=== PATIENT | male | born 1970 | race African-American/Black ===

== ENCOUNTER 2022-09-22 23:10 | Emergency (ER) | payer OTHER, SELFPAY ==
[2022-09-22 23:23] VITALS: BP 159/92; PULSE 83; RESP 22; TEMP 36.9; O2SAT 100; BMI 26.7
--- NOTE | 2022-09-22 23:42 | ED_ITS ---
HPI - Abdominal Pain General Chief Complaint: Abdominal Pain Stated Complaint: ABDOMINAL PAIN, N&V Time Seen by Provider: 09/22/22 23:24 Source: patient Mode of arrival: walk-in Limitations: no limitations History of Present Illness HPI narrative: patient presents complaining of nausea, vomiting and diarrhea. Crampy diarrhea. ongoing for 4th day. No fever but has chills. States diarrhea is watery and mucousy staes cramping can become quite uncomfortable with diarrhea. Related Data Home Medications Medication Instructions Recorded Confirmed dicyclomine 20 mg tablet 20 mg PO QID 09/22/22 09/22/22 metformin 500 mg 24 hr 500 mg PO BID 09/22/22 09/22/22 tablet,extended release (Glumetza) olmesa medox 5 mg PO DAILY 09/22/22 09/22/22 rosuvastatin 5 mg tablet (Crestor) 5 mg PO DAILY 09/22/22 09/22/22 Allergies Allergy/AdvReac Type Severity Reaction Status Date / Time No Known Drug Allergies Allergy Verified 09/22/22 23:28 Review of Systems ROS Status of ROS 10 or more systems reviewed and unremarkable except as noted in history and below [facility] Medical History (Updated 09/23/22 @ 04:51 by Harlan Myrick MD) Exam Constitutional Vital Signs, click to edit/add: Last Vital Signs Temp 98.4 F 09/22/22 23:23 Pulse 92 H 09/23/22 03:14 Resp 16 09/23/22 03:14 BP 162/94 H 09/23/22 03:14 Pulse Ox 100 09/23/22 03:14 O2 Del Method Room Air 09/23/22 03:14 Common normals: average body habitus, oriented x3 and healthy appearing HENMT Common normals: normocephalic and head/scalp atraumatic Eye Common normals: PERRL, EOMs intact bilaterally and conjunctivae normal Respiratory Common normals: normal respiratory effort, no retractions, no use of accessory muscles and clear to auscultation bilaterally Cardio Common normals: no JVD, regular rate, regular rhythm, S1 normal heart sound and S2 normal heart sound GI Common normals: Normal to inspection, nondistended, normoactive bowel sounds present, soft to palpation and non-tender Extremity Common normals: normal to inspection Neuro Common normals: oriented x3, CN's II-XII intact bilaterally, moves all extremities and no focal motor deficits Psych Appearance: grossly normal Course Vital Signs Vital signs: Vital Signs Temperature 98.4 F 09/22/22 23:23 Pulse Rate 83 09/22/22 23:23 Respiratory Rate 22 09/22/22 23:23 Blood Pressure 159/92 H 09/22/22 23:23 Pulse Oximetry 100 09/22/22 23:23 Temperature 98.4 F 09/22/22 23:23 Pulse Rate 92 H 09/23/22 03:14 Respiratory Rate 16 09/23/22 03:14 Blood Pressure 162/94 H 09/23/22 03:14 Pulse Oximetry 100 09/23/22 03:14 Oxygen Delivery Method Room Air 09/23/22 03:14 MDM - Abdominal Pain MDM Narrative Medical decision making narrative: patient presents with recurrent diarrhea and cramping. also occ vomiting. symptoms improved after Toradol and IV hydration. Stool without obvious source to explain his GI symptoms including neg. C. diff. Patient discharged home with izabela and issa and is to follow up with his doctor Lab Data Labs: Lab Results 09/22/22 09/23/22 Range/Units 23:37 00:45 WBC 9.6 (4.0-11.0) 10^3/uL RBC 4.33 L (4.70-6.10) 10^6/uL Hgb 13.1 L (14.0-18.0) g/dL Hct 37.6 L (42.0-54.0) % MCV 86.8 (80.0-94.0) fL MCH 30.3 (25.9-34.0) pg MCHC 34.8 (29.9-35.2) g/dL RDW 11.8 (11.0-15.0) % Plt Count 301 (150-450) 10^3/uL MPV 8.9 L (9.5-13.5) fL Neut % (Auto) 58.8 (43.0-75.0) % Lymph % (Auto) 27.6 (20.5-60.0) % Shackelford % (Auto) 11.0 (1.7-12.0) % Eos % (Auto) 1.7 (0.9-7.0) % Baso % (Auto) 0.7 (0.2-2.0) % Neut # (Auto) 5.6 (1.4-6.5) 10^3/uL Lymph # (Auto) 2.6 (1.2-3.8) 10^3/uL Shackelford # (Auto) 1.1 H (0.3-0.8) 10^3/uL Eos # (Auto) 0.2 (0.0-0.7) 10^3/uL Baso # (Auto) 0.1 (0.0-0.1) 10^3/uL Abs Immat Gran (auto) 0.02 (0.00-0.03) 10^3/uL Imm/Tot Granulo (auto) 0.2 (0.0-0.5) % Sodium 140 (136-145) mmol/L Potassium 3.3 L (3.5-5.1) mmol/L Chloride 103 (98-107) mmol/L Carbon Dioxide 28.9 (21.0-32.0) mmol/L Anion Gap 11.4 BUN 17.0 (7.0-18.0) mg/dL Creatinine 1.27 (0.70-1.30) mg/dL Est GFR ( Amer) >60 (>=60) Est GFR (Non-Af Amer) >60 (>=60) BUN/Creatinine Ratio 13.4 Glucose 139 H (74-106) mg/dL Lactate 1.3 (0.4-2.0) mmol/L Calcium 9.3 (8.5-10.1) mg/dL Total Bilirubin 0.3 (0.2-1.0) mg/dL AST 21 (15-37) U/L ALT 39 (16-63) U/L Alkaline Phosphatase 117 H (46-116) U/L Total Protein 8.1 (6.4-8.2) g/dL Albumin 4.2 (3.4-5.0) g/dL Globulin 3.9 g/dL Albumin/Globulin Ratio 1.1 Stl C. cayetanensis PCR Not detected (NOT DETECTE) Stool Rotavirus (PCR) Not detected (NOT DETECTE) Stool Adenovirus (PCR) Not detected (NOT DETECTE) Stool Astrovirus (PCR) Not detected (NOT DETECTE) Stool Campylobacter PCR Not detected (NOT DETECTE) Stool Cryptosporidium PCR Not detected (NOT DETECTE) St Sh/Enteroin Ecoli PCR Not detected (NOT DETECTE) Stl Enterotoxigenic E PCR Not detected (NOT DETECTE) Stl E. histolytica PCR Not detected (NOT DETECTE) Stool Giardia Lamblia PCR Not detected (NOT DETECTE) Stl P. shigelloides PCR Not detected (NOT DETECTE) Stool Salmonella PCR Not detected (NOT DETECTE) Stool Sapovirus (PCR) Not detected (NOT DETECTE) Stl Shiga-like Tx 1 PCR Not detected (NOT DETECTE) St Y.enterocolitica PCR Not detected (NOT DETECTE) Stl Vibrio cholerae PCR Not detected (NOT DETECTE) Stl Enteroaggr Ecoli PCR Not detected (NOT DETECTE) Stl Norovirus GI/GII PCR Not detected (NOT DETECTE) C. difficile Toxin A&B Not detected (NOT DETECTE) Vibrio Culture Not detected (NOT DETECTE) Discharge Plan Discharge Chief Complaint: Abdominal Pain Clinical Impression: Gastroenteritis Prescriptions / Home Meds: No Action metformin [Glumetza] 500 mg tablet,ER lesa.retention 24 hr 500 mg PO BID dicyclomine 20 mg tablet 20 mg PO QID rosuvastatin [Crestor] 5 mg tablet 5 mg PO DAILY olmesa medox 5 mg PO DAILY Instructions: Gastroenteritis (ED) Additional Instructions: follow up with your family doctor in the next few days Stand Alone Forms: Portal Instructions Referrals: Physician,Non-Staff, MD [Primary Care Provider] - 1 week
--- NOTE | 2022-09-22 23:45 | XR_ITS ---
The [address] [address] Patient Name: JESSICA PITTMAN MRN: [id number] date: 1970 Sex: M Assigned Patient Location: ER Current Patient Location: Accession/Order Number: [id number] Exam Date: 09/22/2022 23:59 Report Date: 09/23/2022 00:42 At the request of: MARITA ELLISON Procedure: XR abdomen min 2V PLAIN FILM OF THE ABDOMEN HISTORY: Abdominal pain with nausea vomiting and diarrhea since last Tuesday. Patient has a history of IBS. Patient has a history of diabetes.. COMPARISON: None. TECHNIQUE: 2 view of the abdomen/pelvis submitted for review. FINDINGS: Evaluation for free air is limited due to supine position. The bowel gas pattern is nonobstructive. There are no abnormal calcifications. However, evaluation of the renal shadows is limited due to overlying bowel gas. No portal venous air. Osseous structures appear within normal limits for age. XR/XR abdomen min 2V IMPRESSION: 1. Nonobstructive bowel gas pattern. 2. Mildretention of stool. Electronically authenticated by: GERARDO SALDAÑA Date: 09/23/2022 00:42
[2022-09-23 00:01] LABS: Basophils Absolute Auto 0.1 10^3/uL (0.0-0.1); Basophils Percent Auto 0.7 % (0.2-2.0); Eosinophils Absolute Auto 0.2 10^3/uL (0.0-0.7); Eosinophils Percent Auto 1.7 % (0.9-7.0); Hematocrit 37.6 % (42.0-54.0); Hemoglobin 13.1 g/dL (14.0-18.0); Immature Granulocytes Abs Auto 0.02 10^3/uL (0.00-0.03); Immature Granulocytes Pct Auto 0.2 % (0.0-0.5); Lymphocytes Absolute Auto 2.6 10^3/uL (1.2-3.8); Lymphocytes Percent Auto 27.6 % (20.5-60.0); Mean Corpuscular HGB Conc 34.8 g/dL (29.9-35.2); Mean Corpuscular Hemoglobin 30.3 pg (25.9-34.0); Mean Corpuscular Volume 86.8 fL (80.0-94.0); Mean Platelet Volume 8.9 fL (9.5-13.5); Monocytes Absolute Auto 1.1 10^3/uL (0.3-0.8); Neutrophils Absolute Auto 5.6 10^3/uL (1.4-6.5); Neutrophils Percent Auto 58.8 % (43.0-75.0); Platelet Count 301 10^3/uL (150-450); Red Blood Count 4.33 10^6/uL (4.70-6.10); Red Cell Distribution Width 11.8 % (11.0-15.0); White Blood Count 9.6 10^3/uL (4.0-11.0)
[2022-09-23 00:17] LABS: Alanine Aminotransferase 39 U/L (16-63); Albumin Globulin Ratio 1.1; Albumin Level 4.2 g/dL (3.4-5.0); Alkaline Phosphatase 117 U/L (46-116); Anion Gap 11.4; Aspartate Amino Transferase 21 U/L (15-37); BUN Creatinine Ratio 13.4; Bilirubin Total 0.3 mg/dL (0.2-1.0); Calcium 9.3 mg/dL (8.5-10.1); Carbon Dioxide 28.9 mmol/L (21.0-32.0); Chloride 103 mmol/L (98-107); Estimated GFR (African America >60 (>=60); Estimated GFR (Non-African Ame >60 (>=60); Globulin 3.9 g/dL; Glucose 139 mg/dL (74-106); Potassium 3.3 mmol/L (3.5-5.1); Sodium 140 mmol/L (136-145); Total Protein 8.1 g/dL (6.4-8.2)
[2022-09-23 00:19] LABS: Lactate/Lactic Acid 1.3 mmol/L (0.4-2.0)
[2022-09-23] MEDS: ORPHENADRINE 60 MG/ 2 ML VIAL IV (00:40)
[2022-09-23] MEDS: 0.9 % SODIUM CHLORIDE 1,000 ML 999 ML IV ×2 (00:40→01:42)
[2022-09-23] MEDS: ONDANSETRON PF 4 MG/2 ML VIAL IV (00:40)
[2022-09-23] MEDS: KETOROLAC TROMETHAMINE 30 MG/ML VIAL IVP (00:40)
[2022-09-23 03:14] VITALS: BP 162/94; PULSE 92; RESP 16; O2SAT 100
[2022-09-23 03:14] LABS: Adenovirus F 40/41 NOT DETECTED (NOT DETECTE); Astrovirus NOT DETECTED (NOT DETECTE); Campylobacter NOT DETECTED (NOT DETECTE); Cryptosporidium NOT DETECTED (NOT DETECTE); Cyclospora cayetanensis NOT DETECTED (NOT DETECTE); Entamoeba histolytica NOT DETECTED (NOT DETECTE); Enteroaggregative E.coli NOT DETECTED (NOT DETECTE); Enterotoxigenic E. coli NOT DETECTED (NOT DETECTE); Giardia lamblia NOT DETECTED (NOT DETECTE); Norovirus GI/GII NOT DETECTED (NOT DETECTE); Plesiomonas shigelloides NOT DETECTED (NOT DETECTE); Rotavirus A NOT DETECTED (NOT DETECTE); Salmonella NOT DETECTED (NOT DETECTE); Sapovirus NOT DETECTED (NOT DETECTE); Shiga-like toxin-producing E.C NOT DETECTED (NOT DETECTE); Shigella/Enteroinvasive E.coli NOT DETECTED (NOT DETECTE); Vibrio NOT DETECTED (NOT DETECTE); Vibrio cholerae NOT DETECTED (NOT DETECTE); Yersinia enterocolitica NOT DETECTED (NOT DETECTE)
== END 2022-09-23 05:03 | disposition home or self-care (01) ==
PROVIDERS: Emergency Provider Internal Medicine
DX: K52.9 Noninfective gastroenteritis and colitis, unspecified (principal); Z79.84 Long term (current) use of oral hypoglycemic drugs
CPT/HCPCS: 36415; 74019; 80053; 81003; 83605; 85025; 87045; 87046; 87427; 87493; 87507; 96361; 96374; 96375; 99285

== ENCOUNTER 2023-02-23 23:06 | Observation (INO) | payer OTHER, SELFPAY ==
[2023-02-23 23:13] VITALS: BP 123/75; PULSE 77; RESP 14; TEMP 36.6; O2SAT 100; BMI 27.3
--- NOTE | 2023-02-23 23:28 | XR_ITS ---
The [address] [address] Patient Name: JESSICA PITTMAN MRN: [id number] date: 1970 Sex: M Assigned Patient Location: ER Current Patient Location: ER Accession/Order Number: [id number] Exam Date: 02/23/2023 23:40 Report Date: 02/23/2023 23:56 At the request of: MARITA ELLISON Procedure: XR foot RT min 3V EXAM: XR foot RT min 3V HISTORY: The patient is a 52-year-old male with osteomyelitis COMPARISON: None. FINDINGS: The right foot is radiographically negative with no evidence of fracture, dislocation, joint space narrowing, erosions, osteophytes, or other osseous or articular abnormalities. There are no areas of bone destruction, periosteal reaction, or soft tissue gas to suggest osteomyelitis. XR/XR foot RT min 3V IMPRESSION: No osseous or articular abnormalities seen within the right foot. Electronically authenticated by: MARY JOSEPH Date: 02/23/2023 23:56
--- NOTE | 2023-02-23 23:30 | ED_ITS ---
HPI - Skin/Abscess/Foreign Bdy General Chief complaint: Skin/Abscess/Foreign Body Stated complaint: RT FOOT PAIN Time Seen by Provider: 02/23/23 23:22 Source: patient Mode of arrival: Wheelchair Limitations: no limitations History of Present Illness HPI narrative: diabetic. Presents with right foot pain. Admits to shaving his foot about a month ago. Developed pain at 1st right MTP plantar surface with increasing pain and swelling. No fever or chills Related Data Home Medications Medication Instructions Recorded Confirmed dicyclomine 20 mg tablet 20 mg PO QID 09/22/22 02/23/23 metformin 500 mg 24 hr 500 mg PO BID 09/22/22 02/23/23 tablet,extended release (Glumetza) olmesa medox 5 mg PO DAILY 09/22/22 02/23/23 rosuvastatin 5 mg tablet (Crestor) 5 mg PO DAILY 09/22/22 02/23/23 Allergies Allergy/AdvReac Type Severity Reaction Status Date / Time No Known Drug Allergies Allergy Verified 09/22/22 23:28 [facility] Medical History (Updated 02/24/23 @ 03:41 by Harlan Myrick MD) Diabetic acidosis, type II ?E11.10 - Type 2 diabetes mellitus with ketoacidosis without coma (ICD-10) Social History Smoking status: Current every day smoker Exam Constitutional Vital Signs, click to edit/add: Last Vital Signs Temp 98 F 02/23/23 23:13 Pulse 77 02/23/23 23:13 Resp 14 02/23/23 23:13 BP 123/75 02/23/23 23:13 Pulse Ox 100 02/23/23 23:13 O2 Del Method Room Air 02/23/23 23:13 Course Vital Signs Vital signs: Vital Signs Temperature 98 F 02/23/23 23:13 Pulse Rate 77 02/23/23 23:13 Respiratory Rate 14 02/23/23 23:13 Blood Pressure 123/75 02/23/23 23:13 Pulse Oximetry 100 02/23/23 23:13 Oxygen Delivery Method Room Air 02/23/23 23:13 Temperature 98 F 02/23/23 23:13 Pulse Rate 77 02/23/23 23:13 Respiratory Rate 14 02/23/23 23:13 Blood Pressure 123/75 02/23/23 23:13 Pulse Oximetry 100 02/23/23 23:13 Oxygen Delivery Method Room Air 02/23/23 23:13 MDM - Skin/Abscess/Foreign Bdy MDM Narrative Medical decision making narrative: patient is diabetic. Presents with infection of his right foot. foot is swollen and tender and warmth. xray neg for osteo. CBC WNL. Patient treated with IV vanco and zosyn. Discussed with hospitalist who accepted the patient but also requested CT of the foot. ` Lab Data Labs: Lab Results 02/23/23 Range/Units 23:40 WBC 10.8 (4.0-11.0) 10^3/uL RBC 3.51 L (4.70-6.10) 10^6/uL Hgb 10.4 L (14.0-18.0) g/dL Hct 32.1 L (42.0-54.0) % MCV 91.5 (80.0-94.0) fL MCH 29.6 (25.9-34.0) pg MCHC 32.4 (29.9-35.2) g/dL RDW 12.3 (11.0-15.0) % Plt Count 242 (150-450) 10^3/uL MPV 9.3 L (9.5-13.5) fL Neut % (Auto) 66.2 (43.0-75.0) % Lymph % (Auto) 17.8 L (20.5-60.0) % Glynn % (Auto) 14.1 H (1.7-12.0) % Eos % (Auto) 0.9 (0.9-7.0) % Baso % (Auto) 0.6 (0.2-2.0) % Neut # (Auto) 7.1 H (1.4-6.5) 10^3/uL Lymph # (Auto) 1.9 (1.2-3.8) 10^3/uL Glynn # (Auto) 1.5 H (0.3-0.8) 10^3/uL Eos # (Auto) 0.1 (0.0-0.7) 10^3/uL Baso # (Auto) 0.1 (0.0-0.1) 10^3/uL Abs Immat Gran (auto) 0.04 H (0.00-0.03) 10^3/uL Imm/Tot Granulo (auto) 0.4 (0.0-0.5) % Sodium 138 (136-145) mmol/L Potassium 3.6 (3.5-5.1) mmol/L Chloride 102 (98-107) mmol/L Carbon Dioxide 29.2 (21.0-32.0) mmol/L Anion Gap 10.4 BUN 17.0 (7.0-18.0) mg/dL Creatinine 1.11 (0.70-1.30) mg/dL Est GFR ( Amer) >60 (>=60) Est GFR (Non-Af Amer) >60 (>=60) BUN/Creatinine Ratio 15.3 Glucose 124 H (74-106) mg/dL Lactate 0.5 (0.4-2.0) mmol/L Calcium 9.1 (8.5-10.1) mg/dL C-Reactive Protein 6.30 H (<=0.50) mg/dL Imaging Data Chest x-ray: Radiologist's impression: [place] [address] CT Scan Report Signed Patient: JESSICA PITTMAN MR#: [id number] : 1970 Acct:[id number] Age/Sex: 52 / M ADM Date: 02/23/23 Loc: ER Attending Dr: Ordering Physician: Harlan Myrick Date of Service: 02/24/23 Procedure(s): CT foot RT wo con Accession Number(s): [id number] cc: Physician,Non-Staff M.D.~ The [place] [id number] Patient Name: JESSICA PITTMAN MRN: [id number] date: 1970 Sex: M Assigned Patient Location: ER Current Patient Location: ER Accession/Order Number: [id number] Exam Date: 02/24/2023 01:48 Report Date: 02/24/2023 03:17 At the request of: HARLAN MYRICK Procedure: CT foot RT wo con EXAM: CT foot RT wo con HISTORY: osteomyelitis COMPARISON: Correlation is made with right foot radiographs dated 02/23/2023. TECHNIQUE: Noncontrast axial CT images through the right foot were obtained with coronal and sagittal reformats. Dose reduction techniques were achieved by using automated exposure control and/or adjustment of mA and/or kV according to patient size and/or use of iterative reconstruction technique. FINDINGS: No acute fracture or dislocation is seen. There are scattered degenerative changes. Well-corticated ossific densities at the tips of the medial and lateral malleoli are likely related to remote trauma. There are tiny Achilles and plantar calcaneal enthesophytes. There is no periosteal reaction, osseous destructive changes, or soft tissue air to suggest acute osteomyelitis. There is sclerosis of the medial tibial sesamoid. There is no significant right ankle joint effusion. There is fatty atrophy of the the lateral plantar foot musculature. The Achilles, peroneal, flexor, and extensor tendons about the right ankle and foot are grossly intact by CT. There is scattered subcutaneous edema about the right foot. There is a 3.6 x 0.9 cm fluid collection within either the skin or subcutaneous soft tissues at the medial plantar aspect of the distal first metatarsal. CT/CT foot RT wo con IMPRESSION: 1. There is a 3.6 x 0.9 cm fluid collection within either the skin or the subcutaneous tissues of the medial plantar aspect of the distal right first metatarsal. This could represent an abscess or a skin blister. Please correlate with the patient's physical examination. There are surrounding inflammatory changes which likely represent cellulitis. 2. Sclerosis of the right medial tibial sesamoid bone could be reactive or represent osteomyelitis. Consider further evaluation with MRI as clinically indicated. Discharge Plan Discharge Chief Complaint: Skin/Abscess/Foreign Body Clinical Impression: Cellulitis of foot, right Patient Disposition: Admitted As Inpatient
[2023-02-23 23:55] LABS: Basophils Absolute Auto 0.1 10^3/uL (0.0-0.1); Basophils Percent Auto 0.6 % (0.2-2.0); Eosinophils Absolute Auto 0.1 10^3/uL (0.0-0.7); Eosinophils Percent Auto 0.9 % (0.9-7.0); Hematocrit 32.1 % (42.0-54.0); Hemoglobin 10.4 g/dL (14.0-18.0); Immature Granulocytes Abs Auto 0.04 10^3/uL (0.00-0.03); Immature Granulocytes Pct Auto 0.4 % (0.0-0.5); Lymphocytes Absolute Auto 1.9 10^3/uL (1.2-3.8); Lymphocytes Percent Auto 17.8 % (20.5-60.0); Mean Corpuscular HGB Conc 32.4 g/dL (29.9-35.2); Mean Corpuscular Hemoglobin 29.6 pg (25.9-34.0); Mean Corpuscular Volume 91.5 fL (80.0-94.0); Mean Platelet Volume 9.3 fL (9.5-13.5); Monocytes Absolute Auto 1.5 10^3/uL (0.3-0.8); Monocytes Percent Auto 14.1 % (1.7-12.0); Neutrophils Absolute Auto 7.1 10^3/uL (1.4-6.5); Neutrophils Percent Auto 66.2 % (43.0-75.0); Platelet Count 242 10^3/uL (150-450); Red Blood Count 3.51 10^6/uL (4.70-6.10); Red Cell Distribution Width 12.3 % (11.0-15.0); White Blood Count 10.8 10^3/uL (4.0-11.0)
[2023-02-23] MEDS: PIPERACILLIN SODIUM/TAZOBACTAM 3.375 GM in 0.9 % SODIUM CHLORIDE 50 ML IV (23:58)
[2023-02-24] VITALS (12 sets, daily range): BP systolic 110–151; BP diastolic 65–97; PULSE 69–78; RESP 14–18; TEMP 36.3–37.2; O2SAT 95–100; BMI 27.4
[2023-02-24 00:12] LABS: Anion Gap 10.4; BUN Creatinine Ratio 15.3; Calcium 9.1 mg/dL (8.5-10.1); Carbon Dioxide 29.2 mmol/L (21.0-32.0); Chloride 102 mmol/L (98-107); Estimated GFR (African America >60 (>=60); Estimated GFR (Non-African Ame >60 (>=60); Glucose 124 mg/dL (74-106); Potassium 3.6 mmol/L (3.5-5.1); Sodium 138 mmol/L (136-145)
[2023-02-24 00:21] LABS: Lactate/Lactic Acid 0.5 mmol/L (0.4-2.0)
[2023-02-24] MEDS: VANCOMYCIN HCL 1,500 MG in 0.9 % SODIUM CHLORIDE 500 ML 250 MG IV ×2 (00:30→14:32)
[2023-02-24] MEDS: MORPHINE SULFATE 4 MG/ML VIAL IV (01:13)
[2023-02-24] MEDS: ONDANSETRON PF 4 MG/2 ML VIAL IV (01:13)
--- NOTE | 2023-02-24 01:22 | CT_ITS ---
The [address] [address] Patient Name: JESSICA PITTMAN MRN: [facility]:[id number] date: 1970 Sex: M Assigned Patient Location: ER Current Patient Location: Accession/Order Number: [id number] Exam Date: 02/24/2023 01:48 Report Date: 02/24/2023 03:17 At the request of: MARITA ELLISON Procedure: CT foot RT wo con EXAM: CT foot RT wo con HISTORY: osteomyelitis COMPARISON: Correlation is made with right foot radiographs dated 02/23/2023. TECHNIQUE: Noncontrast axial CT images through the right foot were obtained with coronal and sagittal reformats. Dose reduction techniques were achieved by using automated exposure control and/or adjustment of mA and/or kV according to patient size and/or use of iterative reconstruction technique. FINDINGS: No acute fracture or dislocation is seen. There are scattered degenerative changes. Well-corticated ossific densities at the tips of the medial and lateral malleoli are likely related to remote trauma. There are tiny Achilles and plantar calcaneal enthesophytes. There is no periosteal reaction, osseous destructive changes, or soft tissue air to suggest acute osteomyelitis. There is sclerosis of the medial tibial sesamoid. There is no significant right ankle joint effusion. There is fatty atrophy of the the lateral plantar foot musculature. The Achilles, peroneal, flexor, and extensor tendons about the right ankle and foot are grossly intact by CT. There is scattered subcutaneous edema about the right foot. There is a 3.6 x 0.9 cm fluid collection within either the skin or subcutaneous soft tissues at the medial plantar aspect of the distal first metatarsal. CT/CT foot RT wo con IMPRESSION: 1. There is a 3.6 x 0.9 cm fluid collection within either the skin or the subcutaneous tissues of the medial plantar aspect of the distal right first metatarsal. This could represent an abscess or a skin blister. Please correlate with the patient's physical examination. There are surrounding inflammatory changes which likely represent cellulitis. 2. Sclerosis of the right medial tibial sesamoid bone could be reactive or represent osteomyelitis. Consider further evaluation with MRI as clinically indicated. Electronically authenticated by: Sanjeev OLIVO Date: 02/24/2023 03:17
--- NOTE | 2023-02-24 05:41 | MR_ITS ---
The [address] [address] Patient Name: JESSICA PITTMAN MRN: [id number] date: 1970 Sex: M Assigned Patient Location: MS Current Patient Location: MS Accession/Order Number: [id number] Exam Date: 02/24/2023 08:47 Report Date: 02/24/2023 11:57 At the request of: GAEL TAVAREZ Procedure: MR foot RT wo con EXAM: MR foot RT wo con REASON FOR EXAM: look for osteomyltis. TECHNIQUE: Multiplanar, multisequence imaging of the right foot was performed without contrast COMPARISON: CT scan same date, radiograph 02/23/2023. FINDINGS: Along the plantar and medial aspect of the first MTP joint, there is superficial fluid collection and shallow soft tissue ulceration. This does not appear to extend to the level of the joint. The underlying bone marrow signal is without fracture or osteonecrosis. Specifically, no loss of normal T1 signal or increased T2 signal identified to suggest osteomyelitis. The midfoot is congruent. The Lisfranc ligament is intact. There is fusiform thickening and intermediate signal of the Achilles tendon consistent with tendinosis. No tear. The plantar fascia is thickened without tear. The visualized medial and lateral flexor tendons are unremarkable. The anterior talofibular ligament is thin and attenuated likely reflecting remote ATFL sprain. There is atrophy and edema the plantar musculature consistent with denervation. MR/MR foot RT wo con IMPRESSION: 1. Shallow soft tissue ulceration and cutaneous fluid collection along the plantar medial aspect of the first MTP joint. No evidence of osteomyelitis. 2. Incidental findings as above. Electronically authenticated by: YONAS GAVIRIA Date: 02/24/2023 11:57
--- NOTE | 2023-02-24 05:49 | P.PN_ITS ---
Progress Note: Subjective Subjective Interval history: The patient is a 52-year-old male with a history of diabetes, who started developing a blister of his right foot on the plantar surface. Yesterday, he started having some pain but still went to work. He then started having worsening 9 out of 10 pain. He denies any new medications or any recent antibiotics. He presented to the ED where initial x-ray was negative. However CRP was elevated. CT of the foot did show a 3.6 x 0.9 cm fluid collection of th e medial plantar aspect of the distal right first metatarsal area. Osteomyelitis also has not been ruled out. The patient was given Zosyn and vancomycin and is being admitted for further evaluation. Exam Narrative Exam Narrative: General : Alert and oriented x3 HEENT : Extraocular movements intact, pupils equal round and reactive to light and accommodation Neck: Supple, no JVD Chest: Clear to auscultation bilaterally, no wheezes Heart: Regular rate and rhythm, S1 and S2 heard Abdomen: Soft nontender nondistended. Extremities: Fluctuant area over the right medial plantar area, another 1 over the left foot. Neurologically: Moving all 4 extremities Skin: No rashes Constitutional Vital Signs, click to edit/add: Last Vital Signs Temp 98.2 F 02/24/23 04:35 Pulse 78 02/24/23 04:35 Resp 16 02/24/23 04:35 BP 138/78 02/24/23 04:35 Pulse Ox 98 02/24/23 04:35 O2 Del Method Room Air 02/24/23 05:05 Progress Note: Objective Labs Labs: Short CBC 02/23/23 Range/Units 23:40 WBC 10.8 (4.0-11.0) 10^3/uL Hgb 10.4 L (14.0-18.0) g/dL Hct 32.1 L (42.0-54.0) % Plt Count 242 (150-450) 10^3/uL BMP 02/23/23 23:40 Sodium 138 Potassium 3.6 Chloride 102 Carbon Dioxide 29.2 BUN 17.0 Creatinine 1.11 Glucose 124 H Calcium 9.1 Progress Note: A&P Assessment and Plan (1) Cellulitis of foot, right: Assessment and Plan: The patient is a 52 male with above medical problems, presenting with right foot abscess. Right foot abscess -Provide supportive care -Empiric antibiotics with Zosyn and vancomycin -Check MRI to look for osteomyelitis -Podiatry consult -Keep n.p.o. Diabetes -Hold metformin while npo DVT Prophylaxis -SCDs Medication review -Medication reconciliation form completed Goals of care -Full code Communications -Discussed with the emergency room physician -Discussed with the bedside nurse -Patient updated of plan of care, all questions answered to their satisfaction Disposition -Home when medically stable Telemedicine clause -As the provider of this telehealth evaluation, requested by the patient's evaluating physician, I attest that I introduced myself to the patient, provided my credentials and determined that telemedicine via a real-time, two-way interactive audio and video platform is an appropriate and effective means of providing this service. -I reviewed the patient's chart and had a discussion with the member of the patient's treatment team. -The patient and I mutually agreed with continuation of this evaluation via [employer]. The patient consented for the telemedicine evaluation. -This virtual encounter was taken place from [place], [place]. The encounter was approximately 35 minutes. The nurse was present during the entire time of the encounter and was able to remove the stethoscope and appropriate directions. The patient was evaluated at [facility] Telemedicine Attestation Telemedicine Attestation I conducted this encounter from [] via secure live, [id number] video conference with the patient, located at [facility] with []. Prior to the interview, the risks and benefits of telemedicine were discussed with the patient and verbal consent was obtained.
[2023-02-24] MEDS: SODIUM CHLORIDE 0.45 % 1,000 ML 75 ML IV (06:57)
[2023-02-24] MEDS: PIPERACILLIN SODIUM/TAZOBACTAM 3.375 GM in 0.9 % SODIUM CHLORIDE 50 ML IV ×3 (06:57→23:18)
[2023-02-24 08:41] LABS: Estimated Average Glucose 151 mg/dL; Glycohemoglobin A1C 6.9 % (4.5-6.2)
[2023-02-24] MEDS: LACTATED RINGER'S SOLUTION 1,000 ML 125 ML IV (08:49)
--- NOTE | 2023-02-24 09:37 | P.HP_ITS ---
<Statement entered by Juliette Sanchez, DO - 02/24/23 13:54> This documentation has been reviewed and approved. I have also seen and examined patient and agree with the above findings and plan of care. OR today, awaiting podiatry recs H&P: HPI History of Present Illness Chief complaint: RT FOOT INJURY Narrative: 02/24/23 0810 This is a 52-year-old male patient with a past medical history as outlined below primarily significant for type 2 diabetes newly diagnosed within the last year a nd a half; who presented to the ED complaining of right foot pain and swelling. He reports shaving of callus off the ball of his right foot approximately 2 weeks ago and cutting his foot in the process. Within the last week he noted some bruising and tenderness to the area. 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 In the last 24 hours he noted onset of exquisite tenderness and swelling with a large blistered area. He denies fevers or chills. Workup in the ED revealed no leukocytosis, but an elevated CRP (6.3). An x-ray of the right foot showed no osseous abnormality. A CT of the right foot did reveal 3.6 cm fluid collection, suspected abscess and surrounding cellulitis. There is a question of osteomyelitis of the right medial tibial sesamoid bone on CT imaging. The patient was admitted early this morning to the hospitalist service in observation. At the time of my exam the patient is resting quietly in bed. He reports exquisite tenderness to the plantar surface of his right foot near the 1st MTP joint. No visible drainage is noted but purulent fluid collection is suspected. He was attended by the podiatry service during my exam and they plan to take the pt for surgical I&D in the OR once an MRI has been obtained to more definitively assess for osteomyelitis. He reports taking his Metformin as prescribed by his PCP. DM2 is a relatively new diagnosis for him, but he was experiencing fairly advanced peripheral neuropathy of the feet and ankles by the time he was diagnosed so has probably been undiagnosed for some time. Advised close follow up with his PCP for DM2 management after discharge. Review of Systems ROS Status of ROS 10 or more systems reviewed and unremark able except as noted in history and below [facility] Medical History (Updated 02/24/23 @ 10:32 by Aditi Sanchez NP) Gastroenteritis ?K52.9 - Noninfective gastroenteritis and colitis, unspecified (ICD-10) Hyperlipidemia ?E78.5 - Hyperlipidemia, unspecified (ICD-10) Diabetes ?E11.9 - Type 2 diabetes mellitus without complications (ICD-10) Diabetic acidosis, type II ?E11.10 - Type 2 diabetes mellitus with ketoacidosis without coma (ICD-10) Family History (Updated 02/24/23 @ 05:16 by Donna Vick) Brother Family history of diabetes mellitus Aunt Family history of diabetes mellitus Social History (Updated 02/24/23 @ 05:18 by Donna Vick) Within the past year, how often did you have a drink containing alcohol: never Within the past year, how often did you have six or more drinks on one occasion: never Score interpretation: A score less than 4 is consistent with normal alcohol consumption. 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 Known occupational exposures/hazards: No Highest level of school completed/degree received: high school graduate Are you now , , , , never or living with a partner: living with partner In a typical week, how many times do you talk on the telephone with family, friends, or neighbors: 3 or more times per week How often do you get together with friends or relatives: 3 or more times per week How often do you attend rastafarian or jewish services: never Do you belong to any clubs or organizations such as rastafarian groups unions, fraternal or athletic groups, or school groups: no Total score: 2 Score interpretation: A score of greater than or equal to 2 indicates the lowest level of social isolation. Little interest or pleasure in doing things: not at all Feeling down, depressed, or hopeless: not at all Feel stressed/tense/nervous/anxious/difficulty sleeping: not at all Due to disability, difficulty making decisions: No Do you think of yourself as: straight/heterosexual Gender Identity: male Meds Home Medications and Allergies Home Medications Medication Instructions Recorded Confirmed Type metformin 1,000 mg tablet 1,000 mg PO BID 02/24/23 02/24/23 History Allergies Allergy/AdvReac Type Severity Reaction Status Date / Time No Known Drug Allergies Allergy Verified 09/22/22 23:28 Exam Constitutional Vital Signs, click to edit/add: Last Vital Signs Temp 98.2 F 02/24/23 04:35 Pulse 78 02/24/23 04:35 Resp 16 02/24/23 04:35 BP 138/78 02/24/23 04:35 Pulse Ox 98 02/24/23 04:35 O2 Del Method Room Air 02/24/23 05:05 Common normals: no apparent distress, oriented x3, alert and well nourished General appearance: cooperative Orientation/consciousness: Yes awake HENMT Common normals: normocephalic, head/scalp atraumatic, hearing grossly normal bilaterally, external nose normal and moist oral mucous membranes Head and scalp: normocephalic and atraumatic Eye Common normals: PERRL, EOMs intact bilaterally, conjunctivae normal and no scleral icterus Alignment: alignment normal Eyelid: eyelids normal Neck & C-Spine Common normals: full ROM, supple and no JVD Chest Common normals: inspection of chest normal Chest: symmetrical chest wall rise Respiratory Common normals: normal respiratory effort, no retractions, no use of accessory muscles and clear to auscultation bilaterally Effort & inspection: able to speak in complete sentences Cardio Common normals: no JVD, regular rate, regular rhythm, S1 normal heart sound, S2 normal heart sound, no gallops, no clicks, no murmurs, no rub and peripheral pulses 2+ throughout GI Common normals: Normal to inspection, nondistended, normoactive bowel sounds present, soft to palpation, non-tender, no hepatosplenomegaly, no masses and no bruits Bladder/kidney exam: bladder normal to palpation Extremity Common normals: normal capillary refill and no pedal edema General: no clubbing and no cyanosis Right lower extremity: foot and digits (Plantar MTP joint swelling, exquisite tenderness, erythema, calor) Neuro Debra Coma Scale: GCS not evaluated Common normals: CN's II-XII intact bilaterally, moves all extremities, no focal motor deficits and no sensory deficits noted Speech: speech normal Motor exam: strength 5/5 throughout Psych Common normals: mental status grossly normal, thought process normal, affect normal and activity/motor behavior normal Results Labs Labs: Short CBC 02/23/23 Range/Units 23:40 WBC 10.8 (4.0-11.0) 10^3/uL Hgb 10.4 L (14.0-18.0) g/dL Hct 32.1 L (42.0-54.0) % Plt Count 242 (150-450) 10^3/uL [facility] 02/23/23 23:40 Sodium 138 Potassium 3.6 Chloride 102 Carbon Dioxide 29.2 BUN 17.0 Creatinine 1.11 Glucose 124 H Calcium 9.1 Pulse Oximetry Attestation: I have reviewed the pertinent pulse oximetry results. Imaging R foot XR: Attestation: I have reviewed the pertinent imaging results. Radiologist's impression: IMPRESSION: No osseous or articular abnormalities seen within the right foot. CT R Foot: Attestation: I have reviewed the pertinent imaging results. Radiologist's impression: IMPRESSION: 1. There is a 3.6 x 0.9 cm fluid collection within either the skin or the subcutaneous tissues of the medial plantar aspect of the distal right first metatarsal. This could represent an abscess or a skin blister. Please correlate with the patient's physical examination. There are surrounding inflammatory changes which likely represent cellulitis. 2. Sclerosis of the right medial tibial sesamoid bone could be reactive or represent osteomyelitis. Consider further evaluation with MRI as clinically indicated. Assessment and Plan Assessment and Plan (1) Diabetic foot infection: Assessment and Plan: ACUTE * Adm observation * R foot fluid collection - Suspected abscess and possible osteomyelitis of the tibial sesamoid bone * IVPB Zosyn and Vanco for now * Elevated CRP, no leukocytosis or fever * MRI to be obtained this morning for definitive osteo assessment * C/S Podiatry - we appreciate their assistance with this pt's care * Pt to OR this morning for I&D, possible bone biopsy, wound culture * NPO pending surgery * Post op dressing, weight bearing, pain management deferred to the podiatry service * CBC, CMP daily (2) Diabetes: Assessment and Plan: CHRONIC * Relatively new dx, but probably advanced DM2 * Continue home metformin * Med dose SSI for glucose correction w/ ACHS glucometer checks * A1C in AM * Consider DM educator consult pending clinical course
[2023-02-24 09:54] LABS: Glucometer 116 mg/dL (74-106)
--- NOTE | 2023-02-24 10:37 | CM.NOTE ---
Pt in OR, Dr. Sanchez will see pt after surgical procedure.
[2023-02-24] MEDS: LIDOCAINE HCL 1% 100 MG/10 ML MDV INJ (11:26)
[2023-02-24] MEDS: BUPIVACAINE HCL 0.5% PF 50 MG/10 ML VIAL INJ (11:26)
--- NOTE | 2023-02-24 11:39 | P.CN_ITS ---
Consult Note: [facility] Data of Consult Consult date: 02/24/23 Requesting Physician: Aditi Sanchez NP Primary Care Provider: Non-Staff Physician, MD Consult Narrative Reason for consult: right diabetic foot infection Narrative: patient is a 52-year-old type II diabetic male who related to shaving a callus on his plantar right foot sub-1st metatarsal head roughly a month ago. But over the last 1-2 days he was having extreme pain localized to his right plantar forefoot with erythema, edema. He presented to the emergency department late last night and had stable vital signs but significant elevations and inflammatory markers. A CT scan was obtained which showed an abscess were then consulted. patient denied systemic signs of illness cc:: CC: Aditi Sanchez NP [facility] Medical History (Updated 02/24/23 @ 11:47 by Prabhjot Quintero DPM) Gastroenteritis ?K52.9 - Noninfective gastroenteritis and colitis, unspecified (ICD-10) Hyperlipidemia ?E78.5 - Hyperlipidemia, unspecified (ICD-10) Diabetes ?E11.9 - Type 2 diabetes mellitus without complications (ICD-10) Diabetic acidosis, type II ?E11.10 - Type 2 diabetes mellitus with ketoacidosis without coma (ICD-10) Family History (Updated 02/24/23 @ 05:16 by Donna Vick) Brother Family history of diabetes mellitus Aunt Family history of diabetes mellitus Social History (Updated 02/24/23 @ 05:18 by Donna Vick) Within the past year, how often did you have a drink containing alcohol: never Within the past year, how often did you have six or more drinks on one occasion: never Score interpretation: A score less than 4 is consistent with normal alcohol consumption. 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 Known occupational exposures/hazards: No Highest level of school completed/degree received: high school graduate Are you now , , , , never or living with a partner: living with partner In a typical week, how many times do you talk on the telephone with family, friends, or neighbors: 3 or more times per week How often do you get together with friends or relatives: 3 or more times per week How often do you attend mandaeism or buddhism services: never Do you belong to any clubs or organizations such as mandaeism groups unions, fraternal or athletic groups, or school groups: no Total score: 2 Score interpretation: A score of greater than or equal to 2 indicates the lowest level of social isolation. Little interest or pleasure in doing things: not at all Feeling down, depressed, or hopeless: not at all Feel stressed/tense/nervous/anxious/difficulty sleeping: not at all Due to disability, difficulty making decisions: No Do you think of yourself as: straight/heterosexual Gender Identity: male Meds Home Medications and Allergies Home Medications Medication Instructions Recorded Confirmed Type metformin 1,000 mg tablet 1,000 mg PO BID 02/24/23 02/24/23 History Allergies Allergy/AdvReac Type Severity Reaction Status Date / Time No Known Drug Allergies Allergy Verified 09/22/22 23:28 Exam Narrative Exam Narrative: Skin: right foot demonstrates break in the skin sub-1st metatarsal head with overlying callus. Obvious fluctuance and erythema consistent with cellulitis. left foot skin is intact and no signs of infection Neuro: absent protective sensation however pain out of proportion with palpation and range of motion of the great toe Negative Tinel sign Vascular: Palpable pedal pulses bilaterally nonpitting edema localized to the right foot No calf pain on squeeze MSK: pain on palpation 1st metatarsal head, right. Significant pain with passive range of motion of the great toe but no crepitus mild to moderate bunion deformity bilaterally x-rays were reviewed with the patient which is negative for acute osseous change however CT scan also reviewed with patient showed a fluid collection in the area in question with reactive changes to the tibial sesamoid which may represent reactive changes versus osteomyelitis Constitutional Vital Signs, click to edit/add: Last Vital Signs Temp 98.2 F 02/24/23 04:35 Pulse 72 02/24/23 09:46 Resp 16 02/24/23 09:46 BP 151/84 H 02/24/23 09:46 Pulse Ox 100 02/24/23 09:46 O2 Del Method Room Air 02/24/23 09:46 Results Labs Labs: Short CBC 02/23/23 Range/Units 23:40 WBC 10.8 (4.0-11.0) 10^3/uL Hgb 10.4 L (14.0-18.0) g/dL Hct 32.1 L (42.0-54.0) % Plt Count 242 (150-450) 10^3/uL BMP 02/23/23 23:40 Sodium 138 Potassium 3.6 Chloride 102 Carbon Dioxide 29.2 BUN 17.0 Creatinine 1.11 Glucose 124 H Calcium 9.1 Assessment and Plan Assessment and Plan (1) Diabetic foot infection: (2) Diabetes: (3) Abscess of tendon sheath, right ankle and foot: Assessment and Plan: Patient has been NPO Recommended surgical intervention QUIN (4) Non-pressure chronic ulcer of other part of right foot with muscle involvement without evidence of necrosis: (5) Type 2 diabetes mellitus with diabetic polyneuropathy: (6) Type 2 diabetes mellitus with foot ulcer: Plan patient seen and evaluated with Dr. Gao Patient clearly has abscess and there is concern for osteomyelitis of the sesamoids. MRI pending but I recommended I and D as soon as possible - and MRI should not delay surgery Nonweightbearing right foot Continue broad-spectrum antibiotics - Will obtain deep surgical cultures Will follow
--- NOTE | 2023-02-24 11:49 | PM.ORONB ---
Brief Operative Note Date of procedure: 02/24/23 Pre-op diagnosis: Right foot abscess, diabetic ulcer Post-op diagnosis: same as pre-op Procedure: PROCEDURES PERFORMED: incision and drainage of abscess below fascia, right foot with application of short leg splint INDICATION FOR PROCEDURE: patient has moderate diabetic foot infection by IDSA guidelines with fluid collection representing abscess in his plantar right forefoot. Please see consultation note for further details INTRAOPERATIVE FINDINGS: thick callus formation which upon trimming revealed to sinus tracts which probed deep to the tendon and beneath fascia. Upon incision on the medial forefoot 5+ cc of purulence was evacuated. The tendon did appear healthy tendon sheath intact however the pus was to the level of tendon. No bone exposure PROCEDURE IN DETAIL: Patient was identified in pre op and consent was reviewed. Correct side and site were identified and marked. Patient currently on broad spectrum antibiocs. Patient was brought to OR suite and place on table in a supine position. General anesthesia was administered. Tourniquet applied. Operative extremity was prepped and draped in usual sterile fashion. Formal time-out was performed and the foot/ankle were elevated for several minutes and the tourniquet was inflated. Utilizing a scalpel, incision was placed along the glabrous skin junction at the level of the 1st metatarsal head. Significant amount of pus was evacuated. scalpel was then used to remove hyperkeratotic tissue revealing two sinus tracts which did probe to tendon but no bone was exposed. All nonviable tissue and concluded skin and deep fascia was excised. This left a 6 x 4 cm wound sub-1st metatarsal but all nonviable and question tissue was excised. Blunt dissection with a hemostat was performed to ensure no additional purulence or necrotic tissue was present. After full excision the surgical site was irrigated with 3 L of copious sterile saline. Gloves were changed and all dirty instruments were passed off the sterile field. the tourniquet was deflated and a prompt hyperemic response was noted. All remaining tissue bled appropriately and hemostasis was controlled with just temporary pressure dressing A dry sterile dressing consisting of Xeroform on the incisions followed by 4 x 4 gauze, ABDs, and Kerlix were applied. Multiple layers of cast padding were then applied to ensure all bony prominences were well-padded. A plaster posterior splint was then applied which was held in place by Blayne wraps. Capillary refill time to all digits was evaluated and had appropriate response. Patient tolerated the procedure and anesthesia well transferred to the recovery room with vital signs stable and brisk capillary refill to the toes. POSTOPERATIVE PLAN: Transfer to med/surg under hospitalist's care NWB operative foot/ankle Ice and elevation Sheyla-op antibiotics, multimodal pain medication and DVT prophylaxis Consults: physical therapy & nephrology social worker Estimated LOS 1-2 nights Will follow Upon d/c patient should follow up in wound center within 3-5 days for dressing change Implants: None Anesthesia: General-LMA Surgeon: Prabhjot Quintero [employer] Fsc[employer] Developer: Dillon Gao Estimated blood loss (mL): 25 Pathology: other (soft tissue swab) Condition: stable Disposition: PACU
[2023-02-24] MEDS: LACTATED RINGER'S SOLUTION 1,000 ML 75 ML IV (16:58)
[2023-02-24 20:04] LABS: Glucometer 158 mg/dL (74-106)
[2023-02-24] MEDS: METFORMIN HCL 500 MG TABLET 1000 MG PO (21:01)
[2023-02-24] MEDS: INSULIN ASPART 300 UNIT/3 ML PEN SUBQ (21:02)
[2023-02-25] MEDS: VANCOMYCIN HCL 1,500 MG in 0.9 % SODIUM CHLORIDE 500 ML 200 MG IV (01:51)
[2023-02-25] MEDS: ACETAMINOPHEN 325 MG TABLET 650 MG PO (02:48)
[2023-02-25 04:38] LABS: Basophils Percent Auto 0.5 % (0.2-2.0); Eosinophils Absolute Auto 0.1 10^3/uL (0.0-0.7); Eosinophils Percent Auto 1.8 % (0.9-7.0); Hematocrit 30.4 % (42.0-54.0); Hemoglobin 10.1 g/dL (14.0-18.0); Immature Granulocytes Abs Auto 0.03 10^3/uL (0.00-0.03); Immature Granulocytes Pct Auto 0.4 % (0.0-0.5); Lymphocytes Percent Auto 26.4 % (20.5-60.0); Mean Corpuscular HGB Conc 33.2 g/dL (29.9-35.2); Mean Corpuscular Hemoglobin 30.2 pg (25.9-34.0); Mean Platelet Volume 9.3 fL (9.5-13.5); Monocytes Absolute Auto 0.9 10^3/uL (0.3-0.8); Monocytes Percent Auto 11.7 % (1.7-12.0); Neutrophils Absolute Auto 4.4 10^3/uL (1.4-6.5); Neutrophils Percent Auto 59.2 % (43.0-75.0); Platelet Count 238 10^3/uL (150-450); Red Blood Count 3.34 10^6/uL (4.70-6.10); Red Cell Distribution Width 12.1 % (11.0-15.0); White Blood Count 7.4 10^3/uL (4.0-11.0)
[2023-02-25 04:42] LABS: Anion Gap 11.8; BUN Creatinine Ratio 10.9; Calcium 8.4 mg/dL (8.5-10.1); Carbon Dioxide 25.9 mmol/L (21.0-32.0); Chloride 104 mmol/L (98-107); Estimated GFR (African America >60 (>=60); Estimated GFR (Non-African Ame >60 (>=60); Glucose 96 mg/dL (74-106); Potassium 3.7 mmol/L (3.5-5.1); Sodium 138 mmol/L (136-145)
[2023-02-25 04:48] LABS: Estimated Average Glucose 146 mg/dL; Glycohemoglobin A1C 6.7 % (4.5-6.2)
[2023-02-25 05:48] VITALS: BP 151/77; PULSE 73; RESP 18; TEMP 36.9; O2SAT 97
--- NOTE | 2023-02-25 06:12 | PC.NURSE ---
Blayne wrap to right lower leg and foot is clean, dry, and intact. Visible digits are pink, warm. and dry. Denies any numbness or tingling.
--- NOTE | 2023-02-25 06:13 | PC.NURSE ---
Blayne wrap to righ lower leg and foot is clean, dry, and intact. Denies any pain, numbness, or tingling at this time. Visible digits are pink, warm, and dry.
--- NOTE | 2023-02-25 08:56 | P.DS_ITS ---
<Statement entered by Juliette Sanchez DO - 02/25/23 14:10> This documentation has been reviewed and approved. Patient also seen and evaluated by me. I have reviewed and agree with the above findings and plan of care at the time of discharge. Has close follow up with podiatry. Discussed the need for him to contact his HR department and let them know of hospitalization and also his NWB status DS: Providers Provider Date of admission: 02/24/23 04:30 Primary care physician: Non-Staff Physician, Consults: 02/24/23 Physical Therapy Eval and Treat Routine Reason for consultation: post-surgical 02/24/23 05:41 Consult to Podiatry Routine Consulting Provider: Dillon Gao Reason for consultation: right foot abscess Discharging clinician: Aditi Sanchez DS: Diagnosis Discharge Diagnosis (1) Diabetic foot infection: (2) Abscess of tendon sheath, right ankle and foot: (3) Non-pressure chronic ulcer of other part of right foot with muscle involvement without evidence of necrosis: (4) Type 2 diabetes mellitus with diabetic polyneuropathy: (5) Type 2 diabetes mellitus with foot ulcer: DS: Summary Hospital Course Hospital Course: The patient was admitted with a right plantar surface diabetic foot infection with abscess noted on CT imaging. A follow-up MRI was negative for osteomyelitis. He was treated with IVPB Zosyn and Vanco for broad gram-negative and MRSA coverage. Podiatry was consulted and the patient was taken to surgery for an I&D on 02/24/2023. Het tolerated this procedure well and his postoperative course has been unremarkable. He has been made nonweightbearing to the affected extremity by the podiatry service. An A1c was obtained during this stay and revealed adequate blood sugar control at baseline (6.7). The patient is encouraged to continue to follow a diabetic diet and take his metformin as prescribed. He is being discharged home in stable condition with a prescription for Bactrim for 14 more days. He should follow-up with Dr. Quintero at the wound clinic in 3 to 5 days. He should use ice and elevation to the affected extremity and treat pain with Tylenol or ibuprofen. He has been strongly encouraged to avoid shaving foot calluses in the future and to keep his calluses soft with Eucerin type moisturizing cream. Time Spent with Patient Time attestation: Total time spent providing and/or coordinating discharge services: Time spent: greater than 30 minutes Specific discharge activities: Physical exam, discussion of discharge plan, questions answered. Exam Constitutional Vital Signs, click to edit/add: Last Vital Signs Temp 98.5 F 02/25/23 05:48 Pulse 73 02/25/23 05:48 Resp 18 02/25/23 05:48 BP 151/77 H 02/25/23 05:48 Pulse Ox 97 02/25/23 05:48 O2 Del Method Room Air 02/25/23 05:48 Common normals: no apparent distress, oriented x3 and alert General appearance: cooperative Orientation/consciousness: Yes awake HENMT Common normals: normocephalic and head/scalp atraumatic Eye Common normals: PERRL, EOMs intact bilaterally, conjunctivae normal and no scleral icterus Neck & C-Spine Common normals: no JVD Respiratory Common normals: normal respiratory effort, no use of accessory muscles and clear to auscultation bilaterally Effort & inspection: able to speak in complete sentences and symmetric chest movement Cardio Common normals: no JVD, regular rate, regular rhythm, S1 normal heart sound, S2 normal heart sound and peripheral pulses 2+ throughout GI Common normals: Normal to inspection, nondistended, normoactive bowel sounds present, soft to palpation and non-tender Bladder/kidney exam: bladder normal to palpation Extremity Common normals: normal to inspection, full ROM, normal capillary refill and no pedal edema General: no clubbing and no cyanosis Right lower extremity: foot and digits (R foot surgical drsg D&I, Toes warm/pink) Neuro Common normals: moves all extremities, no focal motor deficits and no sensory deficits noted Speech: speech normal Psych Common normals: mental status grossly normal and activity/motor behavior normal DS: Data Data Completed and Pending Labs on day of discharge: Labs from last 24 hours 02/25/23 02/24/23 02/24/23 03:58 20:02 09:47 WBC 7.4 RBC 3.34 L Hgb 10.1 L Hct 30.4 L MCV 91.0 MCH 30.2 MCHC 33.2 RDW 12.1 Plt Count 238 MPV 9.3 L Neut % (Auto) 59.2 Lymph % (Auto) 26.4 [place] % (Auto) 11.7 Eos % (Auto) 1.8 Baso % (Auto) 0.5 Neut # (Auto) 4.4 Lymph # (Auto) 2.0 [place] # (Auto) 0.9 H Eos # (Auto) 0.1 Baso # (Auto) 0.0 Abs Immat Gran (auto) 0.03 Imm/Tot Granulo (auto) 0.4 Sodium 138 Potassium 3.7 Chloride 104 Carbon Dioxide 25.9 Anion Gap 11.8 BUN 13.0 Creatinine 1.19 Est GFR ( Amer) >60 Est GFR (Non-Af Amer) >60 BUN/Creatinine Ratio 10.9 Glucose 96 Estimat Average Glucose 146 Hemoglobin A1c 6.7 H Calcium 8.4 L POC Glucose 158 H 116 H Discharge Plan Discharge Condition: Good Discharge Medications: New sulfamethoxazole-trimethoprim [Bactrim DS] 800-160 mg tablet 1 tab PO BID 14 Days Qty: 28 0RF Continued metformin 1,000 mg tablet 1,000 mg PO BID Patient Comments: last filled 09/11/22 for 90 days Activity: as per physical therapy Diet: diabetic diet Activity Restrictions/Additional Instructions: - NWB operative foot/ankle until instructed otherwise by Dr Quintero - Ice and elevation - Take Tylenol or Ibuprofen for pain - contact Dr Quintero's office if pain is uncontrolled with these medications Forms: Portal Instructions Follow Up Appointments: - @ 11am with Dr. Quintero [facility], [address] [place] [address] , [place] [phone]
--- NOTE | 2023-02-25 09:34 | PM.PN ---
Progress Note: Subjective Subjective Interval history: Patient seen and evaluated this a.m. resting comfortably at bedside. POD #1 s/p right foot I&D DOS 02/24/2023. Patient denies any acute overnight night events, states pain significantly improved following procedure and in well-controlled with Tylenol. Denied any other acute complaints or constitutional symptoms at time of visit. Exam Narrative Exam Narrative: RLE splint left CDI. CFT intact to digits. Skin temperature warm symmetric proximal distal to dressing. Light touch sensation intact to digits. Protective sensation diminished. No open lesions, erythema edema or ecchymosis proximal or distal dressing. Mild tenderness with palpation of right inguinal lymph node. Compartments soft compressible, no pain with calf or thigh compression. Constitutional Vital Signs, click to edit/add: Last Vital Signs Temp 98.5 F 02/25/23 05:48 Pulse 73 02/25/23 05:48 Resp 18 02/25/23 05:48 BP 151/77 H 02/25/23 05:48 Pulse Ox 97 02/25/23 05:48 O2 Del Method Room Air 02/25/23 05:48 Progress Note: Objective Labs Labs: Short CBC 02/25/23 Range/Units 03:58 WBC 7.4 (4.0-11.0) 10^3/uL Hgb 10.1 L (14.0-18.0) g/dL Hct 30.4 L (42.0-54.0) % Plt Count 238 (150-450) 10^3/uL BMP 02/25/23 03:58 Sodium 138 Potassium 3.7 Chloride 104 Carbon Dioxide 25.9 BUN 13.0 Creatinine 1.19 Glucose 96 Calcium 8.4 L Progress Note: A&P Assessment and Plan (1) Diabetic foot infection: (2) Abscess of tendon sheath, right ankle and foot: Assessment and Plan: s/p I&D right foot, DOS 02/24/2023. 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 All findings discussed with patient and all questions answered to patient's satisfaction. RLE splint to be left CDI until follow-up. Stressed importance of maintaining nonweightbearing to the right lower extremity. PT eval pending for today, crutches versus walker versus knee scooter. P.o. Tylenol as needed for pain relief. Currently on IV Vanco and Zosyn. Plan to DC today on p.o. Bactrim x 2 weeks. Will follow IntraOp cultures at follow-up and adjust if necessary. Stable to DC today from podiatry's perspective following PT eval. Plan for follow-up on Tuesday in the wound center.
--- NOTE | 2023-02-25 09:41 | CM.NOTE ---
Discussed likely discharge today and awaiting PT eval to determine DME needed upon discharge and importance of follow up appointment with Dr. Quintero and NWB status. Pt. voiced understanding. Currently awaiting PT eval.
--- NOTE | 2023-02-25 11:09 | CM.NOTE ---
Spoke with pt regarding discharge planning and need for walker and scooter. Pt verbalizes understanding and would like to go through [facility] in [place], [place]. Faxed clinical that states need for walker and script to [facility].
[2023-02-25] MEDS: INSULIN ASPART 300 UNIT/3 ML PEN SUBQ (11:41)
[2023-02-25 12:02] LABS: Glucometer 204 mg/dL (74-106)
--- NOTE | 2023-02-25 12:32 | CM.NOTE ---
Called [facility] company information has been received but it has not been reviewed at this point. Updated RN.
--- NOTE | 2023-02-25 13:22 | CM.NOTE ---
Discussed with pt recommendations from PT for HH services, pt is in agreement and given Medicare 5 star rating he would like [facility]. Clinical sent for new referral to [facility].
[2023-02-25 14:15] VITALS: BP 155/78; PULSE 71; RESP 16; TEMP 36.7; O2SAT 98
--- NOTE | 2023-02-25 15:27 | CM.NOTE ---
Discussed out of pocket costs with pt for walker and knee scooter, called DME companies on our list and no one accepting his insurance. Pt states he does not want to wait on [facility] and just will pay out of pocket. Pt also notified of [facility] calling all HH companies on list and they will not accept his insurance. Pt given caregiver list for out of pocket expense if needs home assistance. Pt states he is not concerned and ok with not having HH services.
== END 2023-02-25 15:55 | disposition home or self-care (01) ==
LOC: ER 02-24 03:41 → MS 02-24 07:12
PROVIDERS: Internal Medicine; Podiatrist Foot & Ankle Surgery; Admitting Provider Family Medicine; Emergency Provider Internal Medicine; Visit Provider Nurse Practitioner
PROC: (CPT 1470; principal; 2023-02-24 08:40)
DX: M65.071 Abscess of tendon sheath, right ankle and foot (principal); E11.621 Type 2 diabetes mellitus with foot ulcer; L97.515 Non-pressure chronic ulcer of other part of right foot with muscle involvement without evidence of necrosis; E11.628 Type 2 diabetes mellitus with other skin complications; L03.115 Cellulitis of right lower limb; E11.42 Type 2 diabetes mellitus with diabetic polyneuropathy; E78.5 Hyperlipidemia, unspecified; F12.90 Cannabis use, unspecified, uncomplicated; Z79.899 Other long term (current) drug therapy; Z79.84 Long term (current) use of oral hypoglycemic drugs; F17.210 Nicotine dependence, cigarettes, uncomplicated; B95.61 Methicillin susceptible Staphylococcus aureus infection as the cause of diseases classified elsewhere; B95.4 Other streptococcus as the cause of diseases classified elsewhere
CPT/HCPCS: 28002; 36415; 73630; 73700; 73718; 80048; 82948; 83036; 83605; 85025; 86140; 87040; 87070; 87102; 87116; 87150; 87186; 87205; 87206; 96361; 96365; 96366; 96367; 96368; 96375; 97116; 97161; 99285; 99999; G0378; J2704; J3370; Q3014

== ENCOUNTER 2023-03-01 11:21 | Outpatient (OUT) | payer OTHER, SELFPAY | END 2023-03-01 11:22 | disposition home or self-care (01) | LOC: WC 11:21 | PROVIDERS: Visit Provider Podiatrist Foot & Ankle Surgery | DX: E11.621 Type 2 diabetes mellitus with foot ulcer (principal); L97.415 Non-pressure chronic ulcer of right heel and midfoot with muscle involvement without evidence of necrosis | CPT/HCPCS: 29445; G0463 ==

== ENCOUNTER 2023-03-09 10:54 | Outpatient (OUT) | payer OTHER, SELFPAY | END 2023-03-09 10:55 | disposition home or self-care (01) | LOC: WC 10:54 | PROVIDERS: Visit Provider Podiatrist Foot & Ankle Surgery | DX: E11.621 Type 2 diabetes mellitus with foot ulcer (principal); L97.415 Non-pressure chronic ulcer of right heel and midfoot with muscle involvement without evidence of necrosis | CPT/HCPCS: 29445 ==

== ENCOUNTER 2023-03-17 15:08 | Outpatient (OUT) | payer OTHER, SELFPAY ==
--- OUTSIDE RECORDS SUMMARY | 2023-03-17 15:23 | XMS_ITS | CCD ---
Author Name Unknown Address [address] [place] [address] Organization [facility] Care Team Providers Care Front Desk Lead Name Role Phone FRANCO Portillo Emergency Provider [facility], [facility] Primary Care Provider [phone] DO Jose Nixon Emergency Provider [phone] [facility], [facility] Primary Care Provider [phone] DO Pretson Pike Emergency Provider Provider, None Primary Care Unavailable Madeleine Kapadia Attending Unavailable Madeleine Kapadia Admitting Unavailable [facility] Primary Care Provider KELSIE Aleman Emergency Provider [phone] Davy [facility] Helena Luke Emergency Provider [facility], [facility] Primary Care Unavailable Ivan Aleman Admitting Unavailable Ivan Aleman Attending Unavailable Helena Bhatti Attending Unavailable [facility], [facility] Primary Care Unavailable Lola Bhattier E Admitting Unavailable [facility], [facility] Primary Care Unavailable Preston Pike Admitting Unavailable Preston Pike Attending Unavailable [facility], [facility] Primary Care Unavailable Miguel Ángel Portillo Admitting Unavailable Miguel Ángel Portillo Attending Unavailable [facility], [facility] Primary Care Unavailable Jose Nixon Admitting Unavailable Jose Nixon Attending Unavailable [facility], [facility] Primary Care Unavailable Miguel Ángel Portillo Admitting Unavailable Miguel Ángel Portillo Attending Unavailable Tiffani, Jose A Admitting Unavailable KeisterJose Attending Unavailable [facility], [facility] Primary Care Unavailable Miguel Ángel Portillo Admitting Unavailable Miguel Ángel Portillo Attending [facility] Primary Care Unavailable Allergies Allergy Classification Reported Allergen(s) Allergy Type Date of Onset Reaction(s) Facility (1 source) No Known Medication Allergies; Translations: [No Known Medication Allergies] Propensity to adverse reactions to drug (disorder) [facility] Repository Medications Current Medications Medication Drug Class(es) Dates Sig (Normalized) Sig (Original) metFORMIN hydrochloride 1000 mg oral tablet (5 sources) Biguanide Start: 01-23-2022 take 1000 mg by mouth once daily Metformin Active 1000 MG PO Daily January 23, 2022 1:00am metoclopramide 10 mg oral tablet (1 source) Dopamine-2 Receptor Antagonist Start: 10-01-2022 take 1 tablet by mouth every six hours Metoclopramide Hcl (Reglan) 10 mg tablet Active 10 MG PO Q6H 7 October 01, 2022 12:00am olmesartan medoxomil 5 mg oral tablet (4 sources) Angiotensin 2 Receptor Margie Start: 04-03-2022 take 5 mg by mouth once daily Olmesartan Active 5 MG PO Daily April 03, 2022 1:00am pregabalin 50 mg oral capsule (9 sources) Start: 01-23-2022 End: 04-03-2022 take 1 capsule by mouth three times daily Pregabalin (Lyrica) 50 mg capsule Active 50 MG PO Three times daily 9 April 03, 2022 1:00am rosuvastatin calcium 5 mg oral tablet (4 sources) HMG-CoA Reductase Inhibitor Start: 04-03-2022 take 5 mg by mouth at bedtime Rosuvastatin Active 5 MG PO Bedtime April 03, 2022 1:00am tadalafil 20 mg oral tablet (5 sources) Phosphodiesterase 5 Inhibitor Start: 01-23-2022 Tadalafil (Cialis) 20 mg tablet Active 10 MG PO As Directed January 23, 2022 1:00am Start: 01-23-2022 Tadalafil Acti ve MG TABLET January 23, 2022 1:00am Completed/Discontinued Medications Medication Drug Class(es) Dates Sig (Normalized) Sig (Original) gabapentin 100 mg oral capsule (5 sources) Anti-epileptic Agent Start: 01-23-2022 End: 04-03-2022 Gabapentin Discontinued 100 MG PO As Directed January 23, 2022 1:00am April 03, 2022 1:49am Start: 01-23-2022 Gabapentin Act bell MG January 23, 2022 12:00am hydrocortisone 25 mg/ml topical cream (3 sources) Corticosteroid Start: 04-13-2022 End: 10-01-2022 Hydrocortisone Discontinued 1 APPLIC TOPICAL Three times daily April 13, 2022 1:00am October 01, 2022 3:37pm penicillin v potassium 500 mg oral tablet (3 sources) Start: 04-13-2022 End: 10-01-2022 take 1000 mg by mouth twice daily Penicillin V Potassium Discontinued 1000 MG PO Twice daily April 13, 2022 1:00am October 01, 2022 3:37pm traMADol hydrochloride 50 mg oral tablet (5 sources) Opioid Agonist Start: 01-23-2022 End: 04-03-2022 take 50 mg by mouth twice daily Tramadol Discontinued 50 MG PO Twice daily 6 3 January 23, 2022 1:00am April 03, 2022 1:31am Problems Active Problems Problem Classification Problem Date Documented Da te Episodic/Chronic Disorders of teeth and jaw (3 sources) Dental abscess; Translations: [Periapical abscess without sinus] 04-13-2022 Episodic Open wounds of extremities (1 source) Laceration of left index finger; Translations: [Laceration without foreign body of left index finger without damage to nail, initial encounter] 12-04-2022 Episodic Other gastrointestinal disorders (1 source) Diarrhea; Translations: [Diarrhea, unspecified] 10-14-2022 Episodic Other nervous system disorders (5 sources) Neuropathy; Translations: [Polyneuropathy, unspecified] 01-23-2022 Chronic Other nervous system disorders (1 source) Polyneuropathy, unspecified; Translations: [Polyneuropathy, unspecified] Onset: 04-03-2022 Chronic Unclassified (1 source) Cough, unspecified; Translations: [Cough, unspecified] Onset: 01-06-2023 Unclassified (1 source) Laceration without foreign body of left index finger without damage to nail, initial encounter; Translations: [Laceration without foreign body of left index finger without damage to nail, initial encounter] Onset: 11-26-2022 Unclassified (1 source) Diarrhea, unspecified; Translations: [Diarrhea, unspecified] Onset: 10-06-2022 Unclassified (1 source) Other specified disorders of teeth and supporting structures; Translations: [Other specified disorders of teeth and supporting structures] Onset: 04-13-2022 Unclassified (1 source) Pain in right foot; Translations: [Pain in right foot] Onset: 04-03-2022 Viral infection (1 source) Viral disease; Translations: [Viral infection, unspecified] 01-06-2023 Episodic Past or Other Problems Problem Classification Problem Date Documented Da te Episodic/Chronic Abdominal pain (2 sources) Abdominal pain; Translations: [Unspecified abdominal pain] Onset: 09-22-2022 10-09-2022 Episodic Nausea and vomiting (1 source) Nausea with vomiting, unspecified; Translations: [Nausea with vomiting, unspecified] Onset: 10-01-2022 Episodic Other connective tissue disease (1 source) Pain in unspecified foot; Translations: [Pain in unspecified foot] Onset: 01-23-2022 Episodic Results Test Name Value Interpretation Reference Range Facility XR chest 2V*on 01-06-2023 XR chest 2V* [facility] [place] [address] XRay Report Signed Patient: Jessica Pittman MR#: [id number] 91 : 1970 Acct:[id number] Age/Sex: 52 / M ADM Date: 01/06/23 Loc: ER Room: Type: [facility] ER Attending Dr: Copies to: LUTHER Holm Ordering Provider: LUTHER Holm Date of Service: 01/06/23 XR/XR chest 2V*: Upper Respiratory Infection PA AND LATERAL CHEST: CLINICAL HISTORY: Body aches, chills and productive cough and diarrhea COMPARISON: 10/29/2006 The nodular asymmetry at the right lower lung is not obvious on the comparison chest x-ray though is seen on product development manager view from an abdominal CT from December 30, 20192013. There is no focal parenchymal consolidation, effusion or pneumothorax. The cardiac, hilar and mediastinal silhouettes are within normal limits. There is no vascular congestion. The visualized bony thorax is intact. Endplate spurring is present. XR/XR chest 2V* IMPRESSION: NO ACUTE CARDIOPULMONARY ABNORMALITY. Impression dictated by: Amy Quiles M.D.01/06/2023 3:05 PM Dictation Location: [place] [address] Transcribed By: [facility] 01/06/23 1505 Dictated By: Amy Quiles MD 01/06/23 1502 Signed By: 01/06/23 1505 Normal [facility] Complete Blood Count Auto Di ffon 10-06-2022 Basophils (Bld) [#/Vol] 0.0 10*3/uL Normal 0.0-0.2 [facility] Comment on above: Performed By: #### H EPATIC, LIPASE, CBC, ESR, CMP ####[address] Basophils/100 WBC (Bld) 0.7 % Normal . [facility] Comment on above: Performed By: #### H EPATIC, LIPASE, CBC, ESR, CMP ####[address] Eosinophils (Bld) [#/Vol] 0.2 10*3/uL Normal 0.0-0.45 [facility] Comment on above: Performed By: #### H EPATIC, LIPASE, CBC, ESR, CMP ####[address] Eosinophils/100 WBC (Bld) 3.2 % Normal . [facility] Comment on above: Performed By: #### H EPATIC, LIPASE, CBC, ESR, CMP ####[address] Erythrocyte distribution width (RBC) [Ratio] 12.8 % Normal 12.0-14.8 [facility] Comment on above: Performed By: #### H EPATIC, LIPASE, CBC, ESR, CMP ####[address] Hematocrit (Bld) [Volume fraction] 38.9 % Normal 38.8-50.0 [facility] Comment on above: Performed By: #### H EPATIC, LIPASE, CBC, ESR, CMP ####[address] Hemoglobin (Bld) [Mass/Vol] 13.2 g/dL Normal 13.0-17.0 [facility] Comment on above: Performed By: #### H EPATIC, LIPASE, CBC, ESR, CMP ####[address] Lymphocytes (Bld) [#/Vol] 2.3 10*3/uL Normal 1.00-4.8 [facility] Comment on above: Performed By: #### H EPATIC, LIPASE, CBC, ESR, CMP ####[address] Lymphocytes/100 WBC (Bld) 35.1 % Normal . [facility] Comment on above: Performed By: #### H EPATIC, LIPASE, CBC, ESR, CMP ####[address] MCH (RBC) [Entitic mass] 30.2 pg Normal 27.5-35.2 [facility] Comment on above: Performed By: #### H EPATIC, LIPASE, CBC, ESR, CMP ####[address] MCV (RBC) [Entitic vol] 89.2 fL Normal 83.5-101 [facility] Comment on above: Performed By: #### H EPATIC, LIPASE, CBC, ESR, CMP ####[address] Mean Corpuscular HGB Conc 33.9 g/dL Normal 32.5-35.6 [facility] Comment on above: Performed By: #### H EPATIC, LIPASE, CBC, ESR, CMP ####[address] Monocytes (Bld) [#/Vol] 0.6 10*3/uL Normal 0.0-0.8 [facility] Comment on above: Performed By: #### H EPATIC, LIPASE, CBC, ESR, CMP ####[facility] [address] Monocytes/100 WBC (Bld) 16.18 % Normal 0.00-20.00 [facility] Comment on above: Performed By: #### H EPATIC, LIPASE, CBC, ESR, CMP ####[address] Monocytes/100 WBC (Bld) 8.7 % Normal . [facility] Comment on above: Performed By: #### H EPATIC, LIPASE, CBC, ESR, CMP ####[address] Neutrophils (Bld) [#/Vol] 3.4 10*3/uL Normal 1.8-7.7 [facility] Comment on above: Performed By: #### H EPATIC, LIPASE, CBC, ESR, CMP ####[address] Neutrophils/100 WBC (Bld) 52.3 % Normal . [facility] Comment on above: Performed By: #### H EPATIC, LIPASE, CBC, ESR, CMP ####[address] NRBC% 0.1 /100{WBC} Normal 0-0.5 [facility] Comment on above: Performed By: #### H EPATIC, LIPASE, CBC, ESR, CMP ####[address] Platelet mean volume (Bld) [Entitic vol] 7.2 fL Normal 6.6-10.1 [facility] Comment on above: Performed By: #### H EPATIC, LIPASE, CBC, ESR, CMP ####[address] Platelets (Bld) [#/Vol] 279 10*3/uL Normal 150-450 [facility] Comment on above: Performed By: #### H EPATIC, LIPASE, CBC, ESR, CMP ####[address] RBC (Bld) [#/Vol] 4.37 10*6/uL Normal 3.90-5.60 [facility] Comment on above: Performed By: #### H EPATIC, LIPASE, CBC, ESR, CMP ####[facility] [address] WBC (Bld) [#/Vol] 6.6 10*3/uL Normal 4.1-10.5 [facility] Comment on above: Performed By: #### H EPATIC, LIPASE, CBC, ESR, CMP ####[facility] Comprehensive Metabolic Pane ofe 10-06-2022 Albumin [Mass/Vol] 4.8 g/dL Normal 3.5-5.7 [facility] Comment on above: Performed By: #### H EPATIC, LIPASE, CBC, ESR, CMP #### [facility] [address] Albumin/Globulin [Mass ratio] 1.5 {ratio} Normal [facility] Comment on above: Performed By: #### H EPATIC, LIPASE, CBC, ESR, CMP #### [facility] [address] ALP [Catalytic activity/Vol] 110 U/L High 34-104 [facility] Comment on above: Performed By: #### H EPATIC, LIPASE, CBC, ESR, CMP #### [facility] [address] ALT [Catalytic activity/Vol] 42 U/L Normal 7-52 [facility] Comment on above: Performed By: #### H EPATIC, LIPASE, CBC, ESR, CMP #### [facility] [address] Anion gap [Moles/Vol] 9.1 mmol/L Normal 6.0-15.0 [facility] Comment on above: Performed By: #### H EPATIC, LIPASE, CBC, ESR, CMP #### [facility] [address] AST [Catalytic activity/Vol] 29 U/L Normal 13-39 [facility] Comment on above: Performed By: #### H EPATIC, LIPASE, CBC, ESR, CMP #### [address] Bilirubin [Mass/Vol] 0.4 mg/dL Normal 0.3-1.0 [facility] Comment on above: Performed By: #### H EPATIC, LIPASE, CBC, ESR, CMP #### [address] Calcium [Mass/Vol] 9.6 mg/dL Normal 8.6-10.3 [facility] Comment on above: Performed By: #### H EPATIC, LIPASE, CBC, ESR, CMP #### [address] Chloride [Moles/Vol] 106 mmol/L Normal 98-107 [facility] Comment on above: Performed By: #### H EPATIC, LIPASE, CBC, ESR, CMP #### [address] CO2 [Moles/Vol] 26.7 mmol/L Normal 21.0-31.0 [facility] Comment on above: Performed By: #### H EPATIC, LIPASE, CBC, ESR, CMP #### [address] Creatinine [Mass/Vol] 1.05 mg/dL Normal 0.70-1.30 [facility] Comment on above: Performed By: #### H EPATIC, LIPASE, CBC, ESR, CMP #### [address] Creatinine Clr Calc Pharmacy 106.07 [facility] Comment on above: Performed By: #### H EPATIC, LIPASE, CBC, ESR, CMP #### [address] GFR/1.73 sq M.predicted MDRD (S/P/Bld) [Vol rate/Area] mL/min/{1.73_m2} [facility] Comment on above: Performed By: #### H EPATIC, LIPASE, CBC, ESR, CMP #### [facility] [address] Globulin (S) [Mass/Vol] 3.2 g/dL Normal [facility] Comment on above: Performed By: #### H EPATIC, LIPASE, CBC, ESR, CMP #### [facility] [address] Glucose [Mass/Vol] 160 mg/dL High 70-100 [facility] Comment on above: Result Comment: [facility] Glucose Reference Range is dependent on time and content of last meal. Glucose of more than 200 mg/dL in a nonstressed, ambulatory subject supports the diagnosis of Diabetes Mellitus. ADA recommended reference range Performed By: #### H EPATIC, LIPASE, CBC, ESR, CMP #### [facility] [address] Potassium [Moles/Vol] 3.8 mmol/L Normal 3.5-5.1 [facility] Comment on above: Performed By: #### H EPATIC, LIPASE, CBC, ESR, CMP #### [facility] [address] Protein [Mass/Vol] 8.0 g/dL Normal 6.4-8.9 [facility] Comment on above: Performed By: #### H EPATIC, LIPASE, CBC, ESR, CMP #### [address] Sodium [Moles/Vol] 138 mmol/L Normal 136-145 [facility] Comment on above: Performed By: #### H EPATIC, LIPASE, CBC, ESR, CMP #### [facility] [address] Urea nitrogen [Mass/Vol] 12 mg/dL Normal 7-25 [facility] Comment on above: Performed By: #### H EPATIC, LIPASE, CBC, ESR, CMP #### [facility] [address] Erythrocyte Sedimentation Ra mahsa 10-06-2022 ESR (Bld) [Velocity] 15 mm/h Normal 0-19 [facility] Comment on above: Result Comment: PERF ORMED BY: [facility] [address] [place] [address] PATHOLOGIST STAFF OCCUPATIONAL THERAPIST ERICK ACEVEDO M.D. Performed By: #### H EPATIC, LIPASE, CBC, ESR, CMP ####[address] Hepatic Panelon 10-06-2022 Bilirubin,Indirect 0.3 mg/dL Normal [facility] Comment on above: Performed By: #### H EPATIC, LIPASE, CBC, ESR, CMP #### [facility] [address] Bilirubin.indirect [Mass/Vol] 0.10 mg/dL Normal 0.03-0.18 [facility] Comment on above: Performed By: #### H EPATIC, LIPASE, CBC, ESR, CMP #### [address] Lipaseon 10-06-2022 Lipase [Catalytic activity/Vol] 65.0 U/L Normal 11.0-82.0 [facility] Comment on above: Result Comment: PERF ORMED BY: [place] [address] PATHOLOGIST STAFF OCCUPATIONAL THERAPIST ERICK ACEVEDO M.D. Performed By: #### H EPATIC, LIPASE, CBC, ESR, CMP ####[address] Basic Metabolic Panelon 09-12 Anion gap [Moles/Vol] 9.2 mmol/L Normal 6.0-15.0 [facility] Comment on above: Performed By: #### C BC, HEPATIC, BMP, LIPASE #### [address] Calcium [Mass/Vol] 9.6 mg/dL Normal 8.6-10.3 [facility] Comment on above: Performed By: #### C BC, HEPATIC, BMP, LIPASE #### [address] Chloride [Moles/Vol] 105 mmol/L Normal 98-107 [facility] Comment on above: Performed By: #### C BC, HEPATIC, BMP, LIPASE #### [facility] [address] CO2 [Moles/Vol] 27.9 mmol/L Normal 21.0-31.0 [facility] Comment on above: Performed By: #### C BC, HEPATIC, BMP, LIPASE #### [facility] [address] Creatinine [Mass/Vol] 1.17 mg/dL Normal 0.70-1.30 [facility] Comment on above: Performed By: #### C BC, HEPATIC, BMP, LIPASE #### [facility] [address] Creatinine Clr Calc Pharmacy 103.27 [facility] Comment on above: Performed By: #### C BC, HEPATIC, BMP, LIPASE #### [facility] [address] [place] [address] [place] GFR/1.73 sq M.predicted MDRD (S/P/Bld) [Vol rate/Area] mL/min/{1.73_m2} [facility] Comment on above: Performed By: #### C BC, HEPATIC, BMP, LIPASE #### [address] Glucose [Mass/Vol] 140 mg/dL High 70-100 [facility] Comment on above: Result Comment: [place] Glucose Reference Range is dependent on time and content of last meal. Glucose of more than 200 mg/dL in a nonstressed, ambulatory subject supports the diagnosis of Diabetes Mellitus. ADA recommended reference range Performed By: #### C BC, HEPATIC, BMP, LIPASE #### [facility] [address] Potassium [Moles/Vol] 4.1 mmol/L Normal 3.5-5.1 [facility] Comment on above: Performed By: #### C BC, HEPATIC, BMP, LIPASE #### [facility] [address] [place] [address] [place] Sodium [Moles/Vol] 138 mmol/L Normal 136-145 [facility] Comment on above: Performed By: #### C BC, HEPATIC, BMP, LIPASE #### [facility] [address] Urea nitrogen [Mass/Vol] 11 mg/dL Normal 7-25 [facility] Comment on above: Performed By: #### C BC, HEPATIC, BMP, LIPASE #### [facility] [address] abdomen pelvis w conon CT abdomen pelvis w con [facility] Main [place] [address] [place] [address] CT Scan Report Signed Patient: Jessica Pittman MR#: [id number] 91 : 1970 Acct:[id number] Age/Sex: 52 / M ADM Date: 10/01/22 Loc: ER Room: Type: [facility] ER Attending Dr: Copies to: Jose Nixon DO Ordering Provider: Jose Nixon DO Date of Service: 10/01/22 CT/CT abdomen pelvis w con: abd pain CT abdomen pelvis w con 10/01/2022 3:22 PM SIGNS AND SYMPTOMS: Nausea, vomiting, diarrhea, possible gastroparesis TECHNIQUE: Multidetector ct axial images of the abdomen and pelvis were obtained with IV contrast. Multiplanar reformats were performed and reviewed to further define anatomy and possible pathology. CT was performed with one or more of the following dose reduction techniques: Automated exposure control, adjustment of the mA and/or kV according to patient size, or use of iterative reconstruction technique. COMPARISON: 12/29/2013 FINDINGS: Lower Chest: Within normal limits. ABDOMEN: Liver: Within normal limits. Bile Ducts: Normal caliber. Gallbladder: No calcified gallstones. Normal caliber wall. Pancreas: Within normal limits. Spleen: Calcified granulomas are present in the spleen. Adrenals: Within normal limits. Kidneys: Within normal limits. Pelvis: Reproductive Organs: No pelvic masses. Ureters: Within normal limits. Bladder: Within normal limits. Bowel: Normal caliber. There is a normal appendix in the right lower quadrant. Mesenteric Lymph Nodes: No enlarged mesenteric lymph nodes. Peritoneum: No ascites or free air, no fluid collection. Vessels: Atherosclerotic changes are noted in the abdominal aorta and its branches. Retroperitoneum: Within normal limits. Abdominal Wall: Within normal limits. Bones: Degenerative changes are noted in the thoracolumbar spine, hips, and sacroiliac joints. CT/CT abdomen pelvis w con IMPRESSION: No acute intra-abdominal pathology. No bowel obstruction or obstructive uropathy. Impression dictated by: Teofilo Ulloa M.D.10/01/2022 5:38 PM Dictation Location: [place] [address] Transcribed By: [facility] 10/01/22 173 Dictated By: Teofilo Ulloa II, MD 10/01/22 172 Signed By: 10/01/22 173 Normal [facility] Complete Blood Count Auto Di ffon 10-01-2022 Basophils (Bld) [#/Vol] 0.1 10*3/uL Normal 0.0-0.2 [facility] Comment on above: Result Comment: PERF ORMED BY: [place] [address] PATHOLOGIST STAFF OCCUPATIONAL THERAPIST ERICK ACEVEDO M.D. Performed By: #### C BC, HEPATIC, BMP, LIPASE #### [address] Basophils/100 WBC (Bld) 0.7 % Normal . [facility] Comment on above: Performed By: #### C BC, HEPATIC, BMP, LIPASE #### [facility] [address] Eosinophils (Bld) [#/Vol] 0.1 10*3/uL Normal 0.0-0.45 [facility] Comment on above: Performed By: #### C BC, HEPATIC, BMP, LIPASE #### [facility] [address] [place] [address] [place] Eosinophils/100 WBC (Bld) 1.2 % Normal . [facility] Comment on above: Performed By: #### C BC, HEPATIC, BMP, LIPASE #### [address] Erythrocyte distribution width (RBC) [Ratio] 12.8 % Normal 12.0-14.8 [facility] Comment on above: Performed By: #### C BC, HEPATIC, BMP, LIPASE #### [address] Hematocrit (Bld) [Volume fraction] 40.4 % Normal 38.8-50.0 [facility] Comment on above: Performed By: #### C BC, HEPATIC, BMP, LIPASE #### [address] Hemoglobin (Bld) [Mass/Vol] 13.4 g/dL Normal 13.0-17.0 [facility] Comment on above: Performed By: #### C BC, HEPATIC, BMP, LIPASE #### [address] Lymphocytes (Bld) [#/Vol] 1.9 10*3/uL Normal 1.00-4.8 [facility] Comment on above: Performed By: #### C BC, HEPATIC, BMP, LIPASE #### [address] Lymphocytes/100 WBC (Bld) 21.4 % Normal . [facility] Comment on above: Performed By: #### C BC, HEPATIC, BMP, LIPASE #### [address] MCH (RBC) [Entitic mass] 29.7 pg Normal 27.5-35.2 [facility] Comment on above: Performed By: #### C BC, HEPATIC, BMP, LIPASE #### [address] MCV (RBC) [Entitic vol] 89.7 fL Normal 83.5-101 [facility] Comment on above: Performed By: #### C BC, HEPATIC, BMP, LIPASE #### [address] Mean Corpuscular HGB Conc 33.1 g/dL Normal 32.5-35.6 [facility] Comment on above: Performed By: #### C BC, HEPATIC, BMP, LIPASE #### [address] [place] [address] [place] Monocytes (Bld) [#/Vol] 0.8 10*3/uL Normal 0.0-0.8 [facility] Comment on above: Performed By: #### C BC, HEPATIC, BMP, LIPASE #### [facility] [address] [place] [address] [place] Monocytes/100 WBC (Bld) 15.24 % Normal 0.00-20.00 [facility] Comment on above: Performed By: #### C BC, HEPATIC, BMP, LIPASE #### [facility] [address] [place] [address] [place] Monocytes/100 WBC (Bld) 9.5 % Normal . [facility] Comment on above: Performed By: #### C BC, HEPATIC, BMP, LIPASE #### [facility] [address] [place] [address] Neutrophils (Bld) [#/Vol] 5.9 10*3/uL Normal 1.8-7.7 [facility] Comment on above: Performed By: #### C BC, HEPATIC, BMP, LIPASE #### [facility] [address] [place] [address] Neutrophils/100 WBC (Bld) 67.2 % Normal . [facility] Comment on above: Performed By: #### C BC, HEPATIC, BMP, LIPASE #### [facility] [address] [place] [address] [place] NRBC% 0.1 /100{WBC} Normal 0-0.5 [facility] Comment on above: Performed By: #### C BC, HEPATIC, BMP, LIPASE #### [facility] [address] [place] [address] [place] Platelet mean volume (Bld) [Entitic vol] 7.1 fL Normal 6.6-10.1 [facility] Comment on above: Performed By: #### C BC, HEPATIC, BMP, LIPASE #### [facility] [address] [place] [address] [place] Platelets (Bld) [#/Vol] 291 10*3/uL Normal 150-450 [facility] Comment on above: Performed By: #### C BC, HEPATIC, BMP, LIPASE #### [facility] [address] RBC (Bld) [#/Vol] 4.51 10*6/uL Normal 3.90-5.60 [facility] Comment on above: Performed By: #### C BC, HEPATIC, BMP, LIPASE #### [facility] [address] WBC (Bld) [#/Vol] 8.8 10*3/uL Normal 4.1-10.5 [facility] Comment on above: Performed By: #### C BC, HEPATIC, BMP, LIPASE #### [facility] [address] Dipstick and Microscopicon 0 10-01-2022 Appearance (U) Clear Normal Clear [facility] Comment on above: Order Comment: Name Collection Type:: Clean-Voided Midstream Performed By: #### A DDONUAPLUS ####[address] Bacteria,Urine None Seen Normal None Seen [facility] Comment on above: Order Comment: Name Collection Type:: Clean-Voided Midstream Performed By: #### A DDONUAPLUS ####[address] Bilirubin,Urine Negative Normal Negative [facility] Comment on above: Order Comment: Name Collection Type:: Clean-Voided Midstream Performed By: #### A DDONUAPLUS ####[address] Color (U) Yellow Normal Yellow [facility] Comment on above: Order Comment: Name Collection Type:: Clean-Voided Midstream Performed By: #### A DDONUAPLUS ####[address] Glucose Ql (U) 100 mg/dL High Normal [facility] Comment on above: Order Comment: Name Collection Type:: Clean-Voided Midstream Performed By: #### A DDONUAPLUS ####[address] [place] [address] [place] Hyaline Casts,Urine None Seen Normal 0-8 [facility] Comment on above: Order Comment: Name Collection Type:: Clean-Voided Midstream Performed By: #### A DDONUAPLUS ####[address] [address] [facility] Ketones Ql (U) Negative Normal Negative [facility] Comment on above: Order Comment: Name Collection Type:: Clean-Voided Midstream Performed By: #### A DDONUAPLUS ####[address] [address] [facility] Leukocyte esterase Test strip Ql (U) 2+ High Negative [facility] Comment on above: Order Comment: Name Collection Type:: Clean-Voided Midstream Performed By: #### A DDONUAPLUS ####[address] [address] [facility] Nitrite,Urine Negative Normal Negative [facility] Comment on above: Order Comment: Name Collection Type:: Clean-Voided Midstream Performed By: #### A DDONUAPLUS ####[address] [address] [place] Occult Blood,Urine Negative Normal Negative [facility] Comment on above: Order Comment: Name Collection Type:: Clean-Voided Midstream Result Comment: PERF ORMED BY: [facility] [address] [place] [address] PATHOLOGIST STAFF OCCUPATIONAL THERAPIST ERICK ACEVEDO M.D. Performed By: #### A DDONUAPLUS ####[address] [address] [place] pH (U) 5.0 [pH] Normal 5.0-9.0 [facility] Comment on above: Order Comment: Name Collection Type:: Clean-Voided Midstream Performed By: #### A DDONUAPLUS ####[address] [address] [place] Protein,Urine Negative Normal Negative [facility] Comment on above: Order Comment: Name Collection Type:: Clean-Voided Midstream Performed By: #### A DDONUAPLUS ####[address] [address] [facility] RBC LM.HPF (Urine sed) [#/Area] 0 /[HPF] Normal 0-4 [facility] Comment on above: Order Comment: Name Collection Type:: Clean-Voided Midstream Performed By: #### A DDONUAPLUS ####[address] Specificy Kirvin,Urine 1.029 Normal 1.001-1.030 [facility] Comment on above: Order Comment: Name Collection Type:: Clean-Voided Midstream Performed By: #### A DDONUAPLUS ####[address] Squamous Epithelial Cell,Urine None Seen Normal 0-2 [facility] Comment on above: Order Comment: Name Collection Type:: Clean-Voided Midstream Performed By: #### A DDONUAPLUS ####[address] Urobilinogen,Urine Normal Normal Normal [facility] Comment on above: Order Comment: Name Collection Type:: Clean-Voided Midstream Performed By: #### A DDONUAPLUS ####[address] WBC LM.HPF (Urine sed) [#/Area] 0 /[HPF] Normal 0-4 [facility] Comment on above: Order Comment: Name Collection Type:: Clean-Voided Midstream Performed By: #### A DDONUAPLUS ####[address] Yeast,Urine 2+ Critically abnormal None Seen [facility] Comment on above: Order Comment: Name Collection Type:: Clean-Voided Midstream Result Comment: PERF ORMED BY: [facility] [address] [place] [address] PATHOLOGIST STAFF OCCUPATIONAL THERAPIST ERICK ACEVEDO M.D. Performed By: #### A DDONUAPLUS ####[address] Hepatic Panelon 10-01-2022 Albumin [Mass/Vol] 4.7 g/dL Normal 3.5-5.7 [facility] Comment on above: Performed By: #### C BC, HEPATIC, BMP, LIPASE #### [facility] [address] Albumin/Globulin [Mass ratio] 1.3 {ratio} Normal [facility] Comment on above: Performed By: #### C BC, HEPATIC, BMP, LIPASE #### [facility] [address] ALP [Catalytic activity/Vol] 101 U/L Normal 34-104 [facility] Comment on above: Performed By: #### C BC, HEPATIC, BMP, LIPASE #### [facility] [address] ALT [Catalytic activity/Vol] 31 U/L Normal 7-52 [facility] Comment on above: Performed By: #### C BC, HEPATIC, BMP, LIPASE #### [facility] [address] [place] [address] AST [Catalytic activity/Vol] 23 U/L Normal 13-39 [facility] Comment on above: Performed By: #### C BC, HEPATIC, BMP, LIPASE #### [address] Bilirubin [Mass/Vol] 0.4 mg/dL Normal 0.3-1.0 [facility] Comment on above: Performed By: #### C BC, HEPATIC, BMP, LIPASE #### [facility] [address] Bilirubin,Indirect 0.3 mg/dL Normal [facility] Comment on above: Performed By: #### C BC, HEPATIC, BMP, LIPASE #### [facility] [address] Bilirubin.indirect [Mass/Vol] 0.10 mg/dL Normal 0.03-0.18 [facility] Comment on above: Performed By: #### C BC, HEPATIC, BMP, LIPASE #### [facility] [address] Globulin (S) [Mass/Vol] 3.6 g/dL Normal [facility] Comment on above: Performed By: #### C BC, HEPATIC, BMP, LIPASE #### [facility] [address] [place] [id number] [facility] Protein [Mass/Vol] 8.3 g/dL Normal 6.4-8.9 [facility] Comment on above: Performed By: #### C BC, HEPATIC, BMP, LIPASE #### [facility] [address] Lipaseon 10-01-2022 Lipase [Catalytic activity/Vol] 22.0 U/L Normal 11.0-82.0 [facility] Comment on above: Result Comment: PERF ORMED BY: [place] [address] PATHOLOGIST STAFF OCCUPATIONAL THERAPIST ERICK ACEVEDO M.D. Performed By: #### C BC, HEPATIC, BMP, LIPASE #### [facility] [address] Coding Summaryon 09-24-2022 Coding Summary HTMLBase 64 OdcnaddlFOh6lTm+PGhl YWQ+HY4TRGTtZ98ujGDg jT4pY2ODEUdTZobwXLFV BHyRSqTptiJkHJ7upDVs ZXJu IC8+SR4mSTGpEnylbZKs g4U0gVN0Z71vpu9vDPtz qMQ4ZDRiGfJmfxcod4ij lSf1FIovGeykSsXp TPHmbP70RRC9jA20Gw47 lVEmlGZnb4awfSu1UrFp LZHxMZI7pVqgXYbqe2Pq AWEnL20abQIau3L6 IGNvbGxhcHNlOyBlbXB0 kB7dXDpyeaelf7fgcber Awh6mf47oPLop4F0sIY3 G2ZnabT3BKTkdZAm OvepyEIJkD7uqamiv9py zsxrXeDdBPFjGUp7ZLt0 ZGKxyEseQsIgQJ21DGG4 LVLfomSyM9XvXYFl nRdnEtG0i2F9Lj2FJ6PD HrjmE0BIPQJQJEaggPN+ AY19za32F9BlNzhsQmi4 NYNsSXB6bTN3qE8s PXZeRGfix7O0dWS1S0Du duOsfe7pb8qcFUYfSZpn I15lkOAyz7P6NXDmuRQ9 AANeuYseGpCfoM16 Oyc+KVLufWizr3DwKpgp c6rrn4sauEu6KnjfOUNj ayJoiExwYXZ1q6FcZr0m MNAncVF4aKM1kE2n QmWyJbE6OBbiO199NpOg cUZdBpjcW44eA1SrnIW+ UPKqYvr0LBQwkOzoHY7g R9ZcJUNqngblrGAn hAmsHK6zMFZmowvmEVBv aE9lHHFmR9j8RiDiHpB0 RByvW0QxJQCsevcnSv35 zV0aAbSoDtW0FCqf P9TxiiN9DXPzyQMdNXxu DEM9R77eq0A1WUBwBBCs UMS7yED3hQ9spWyklzsr bGVmdDsgdmVydGlj MCzxKMrpV323TWHufViv PkNvZGluZyBEYXRlOiAg MDcvMTQvMjAyMzwvdGQ+ BHVjNLL8fEirIVKv iODxQJekOi2taFlarJge LP6rVTCzxijmKDBgsH5v SCBqeFXsvFxzIP1vTSAq ptljl126LgFdODM2 KRNucTNqZ1KunC5lGbGv TTEyZBGhX7AgtURvGXgh A963HVjkRjB7JJEmidUb T3LhMVXwvTtnZdB3 p5E7Xd3Be0CstawqE0Xv qCWuSyYvYscmPQh3B0Qz PjwvdHI+MZ01UHXbPQ26 WDq3GUY3lLbzZZln RQZuP7AfxQ9bGfNdTRKu ZGRkOyc+PHRhYmxlIHdp ZHRoPScxMDAlJyBzdHls CX1eEe7iKKKxFDTx uOhjtCBnVyEtf8jiNTIy QHmfKD5ifSleM1UgqAB6 ZFFnt5b2Ge73A52tR3Ae dXA+RADayDD0aXG4 qT1gPcPqUkK3MIccK288 IsYztWTjQpcrm7ezz8ut iPw3QdX3PTRzuuAdpOxq VTJ9o2JuHs70E76v IHdpZHRoPSIxNSUiIHZh rPavdt7ycM2bAq4+PGNv zZM3tXM7sS4jCdVaBmH9 HDllK118OkMvqQUw Lpexa6rvx2ndwDt1JxLz RSJhrsKehLpjQVM7o7Rn Lq25H2HsnLzew3IfVpz5 kr40fWJvu2V7zKE0 Y1SlDCWgtnsjqWCopIun YZ9jQMQavqxuLWZrwO5w SLHjX4p5GjGxAxK3WMhg L4DombS6DGCklBEe CTIogPUDsB2iurpnn2hk xpisMvKbPEZmNOp7KKi8 NEMncLbfVoIoLUQ1NdA7 LPL9hMUtsY9inDpu iczcsE2mLty+XAO7bGLo xPTKYN1bBtdzySG+PHRk HRO9oGdcZYcxUQYlrE6n JGIjR6x9OmOjRuX5 XNorO7DfeaT0YHPjaMRu TSMqnNNBtN5aoygay1hz duyuCwIkTEZqUTn5MXp9 LWFsaWduOiBsZWZ0 ArE7BJF7sVMatX5svYrk ttytwK4eFyz+QmlydGgg LLQ7WJg6K4NcAnm9ZZLy kXlnMD8uqMLxKJmj Ls9uyXshkNsjLE9jXQCw cwyys714BzIku6mfAUIa qSErBVjhXXN2B02rm0D4 PZMnBNGrUDU1cTC4 sK3vtAqjaossjJYfiHov elFhyWylXCkpKJioG087 AQHyvQhtAiDtDZt8U3Cs Zvo2YUJajVgjNX3l bEQsBEyhYz9tdDsncVgy OE7vVLFsxqcgp571HpUg q0fmNTSwyBVuAUmzURZ5 H42dl3J4RWHcMMGd PUN1aII5kP4slGfnepnb bGVmdDsgdmVydGljYWwt COyjB344HZWceYnfRfNk xRa1H7XzZgw5BQHc uXxhEL2oaDVaMAtdWj7z dBtyaHwbKY9lGOZrmxwl z829VjMdl9hiWCFcxULq LGdmPPM3I42fo3S6 HPApXMAaWSU2kKB7fK9h bGlnbjogbGVmdDsgdmVy fTtgTCkdKPufL875FDHh cDsnPlBhdGllbnQg AQwuRXp1L4WwQjhngHU+ LM08CTQwWD18aCXohDCs a4pntNp5CcTgXAIrJIG2 kHdvHWycg7NpCMGt S92bjIJeg8S4ASEswIle bCUdRhFqzIN5gL8xKFqr cdjkb8tgflcmVdzne7ly fz10fM05Z97hIUrn ZHRoPSIzMCUiIHZhbGln ta6kgL0dBm7+PGNvbCB3 tSU5kO7wWQDrQdI1GYjj W616BrDmaAHwQpch f0qzn7eyxZw2WxP7TFEh xpUipGmnMNG6h6ZzXw49 F03yXTtnFCTkPDZaBLLq HXYcdQulzs6ijN2v Ii8+LZJfeVY2aXS7zU1u UeVqUbB1PTmwN811UbEr uBQmApgnB30sB7ZqvFV+ AXKxYhz7NBKgtHwp GK7crZJkBCywVp4zSBH3 XdVmYgMrYOewC8CvUOGc hukivnryzPH9LRLdSQZa xS62Rv5nyKfdWBZv tODCuG2zlktxy7jrqdls CgSdPUOpYZc7NFm2KYRb bJggAvRmWIF0YcS3YVS6 iAPinA0kyHftrrpc bE7iH9KqEXJngjblRj23 wB4bFiLmYvG1VTgfVtz+ ZEUBB9NFQTSeTVfTQOBI CA39QX78gFBwv6J8 gQL6X3TmLBKplzbraefr cCV6UYTxAIIbxE09gWPs LLgmRs8et6N4z735FYLk WFPkwR01Xo2yxJcg CCRacLVBdH0idkqjs9tk lgdeIgJpZLRnEZp5GZe9 KQOhmLkjHsHlFTB5DhO6 LEM7jJJpvQ5ikFsi oebbkP9gDdk+MTIvMjgv VXg4QgzjgAV+PHRkIHN0 uPzjDEhxVZPuvA8mYRLm R3q8GcGnGcO0ZEfl J1RqHXNbbhneQe68zM2d JoXhAoZ3PDslX9YbdkR4 HVBrsCHvBUwyAWZ0Q08y n5Q0MMYcBIQhEIH7 sXL0kV4erGzupannyZGl dDsgdmVydGljYWwtYWxp M093ZHGbfOeqQyUkEVuf NUQdUD24ZA42hUJz t2W8tNM9W5EiMGRfvuiw axvfhVH5ERSlXTNqeC38 pCTmPMboPi6dy4L9t811 FXFeSHPqsP64Il0p aXjxDVWxlYYIuM2oqygh c5coeibcQwYmPNLkRKr8 BSf6EWLhpTrlXvUqEKZ7 GxY1ACZ0rICngQ7v vGxbnziraD5tMdm+TUFM RTwvdGQ+WFRbRYA5bCrk SZgkVGLdeY4hTGRgC0k4 MdKhAgP7RWhlB1Ad GIGjwktlMj05xU8yAlRd VrK6KNsqU2CcnfR6QTOa tUDvJSzgVKB9X04se6N6 XCYkLVLuUFC2pQP7 gN2rzOxyefujbKGvoEfc hwTxuYigYDdbKEzgK513 TCOfgBzuOuAnFCLjEZ8r eTwvdGQ+SW06tw18 X9RwBzbjPbf5JILfXPH4 qER4pH3sVVFsRNrte5B3 aOH8I1AxtdMxxm7bm8ru EAPhPYxqJ31irDKo u6I5OVQxmYN5YPXfzYrf ZuCvaW19Anv+PGNvbGdy f5ZgHpskf0znb4khvJu5 IjMwJSIgdmFsaWdu MPY2c7WkDe86X25pUCll ZHRoPSIzMCUiIHZhbGln fl1rhD4iTv0+PGNvbCB3 iGY2cK0fEdNkFkI1 XGmiM689GvXbkLFpRgmd b9dch9aueDo0AnMeZRHt fzJhrNkeUWB9z6LuXi02 J6CoqBynh7QsNwk9 pg31qKXdc6U2rDK9Q9Zk AAFrzbvrqSPymVlsUO5u UONbvapjSLAumP7vCMOl Y8o1KkEgUxG1MQrt N4XeetE8BRXnuPGoINLf xFVKsU3sczjzk8apmgdd VzElKHKkVLf9ULe8YFUv bOkmHbQiRJJ9DtX6 XMN4vUEmpZ2fhUmygmai hK2oIrd+JJc1i9zsqPNz FB5wkKJ6HQ15CE59zJKx q1C2oSZ5Z1FiDNJs ygzfbgjdgYS5KEYdFRPo iM63Fq1rxJzgTy3qJSXj LNU4IFXyxEMvZ2OpxU6b EvKgYKXlFRQvJ8Ge wIPsMCsyU286RQnqGiB7 GQPrvpAeF1WsOBYnrNis EuF4u9G1Aw5WNN51MM55 JH48tEFpr3W8fTA7 I4BzOGEnfkhhnmewwEQ5 OAHpXBYbzO36Vh0xeQja Pu1oUFRcGYE1JFWunAHi L5IauC3gKjCgEKHg OMNgY7TlrWCjFSktU411 ZMupZvQ3SRLyczLbV6Sa WCXcsRwrWmB2a9N3Vu5N Ra16PJ27LX48yTNo r3G5rIL3M3DyYGJfoqri qjyezNA7KLYyZJJcoU60 Of0qvRdoCl9jUZUfAYI7 SIQwzMEwW4MmxM2v FmZrTVEsSDHfR4IwkLTo XGjbZ887GOqaBeV3JSPx sxWdV4CdOONaaGliHgX4 g4W2Ru3GPTuvvcq7 E7TyBvtdySE+CV26BWHr GA32dYSdvKMcw0drqSs8 WuNjTMEdXIL1wLxlVLvl k5OiVSCpE20cuVRn c2U (more content not included)... Normal [facility] ED Clinical Summaryon 2022 ED Clinical Summary [facility] - Emergency Department [address] [place] [address] [id number] ED Clinical Summary PERSON INFORMATION Name: JESSICA PITTMAN Age: 52 Years Sex: MALE : 1970 MRN: Acct#: Visit Reason: Abdominal pain; ABDOMINAL PAIN Arrival: 09/17/2022 12:55:44 Discharge: 09/17/2022 15:03:00 LOS: 000 02:08 Check In: 09/17/2022 12:55:44 Checkout:09/17/2022 15:03:00 Address: [address] [place] [address] PCP: Provider, None PROVIDER INFORMATION Provider Role Assigned Unassigned Madeleine Kapadia CNP ED PA 09/17/2022 13:04:18 Josep Mazariegos GRAIN GRADER Nurse 09/17/2022 13:05:46 VITALS INFORMATION Vital Sign Triage Latest Temperature Tympanic Temperature Temporal Artery Pulse Rate 64 bpm 58 bpm O2 Sat 100 % 98 % Respiratory Rate 18 br/min 18 br/min Blood Pressure /80 mmHg /80 mmHg MEDICAL INFORMATION Medications Given: Medication Dose Route ondansetron 4 mg PO dicyclomine (Bentyl) 20 mg IM Allergy Information: No Known Medication Allergies PHYSICIAN DOCUMENTATION DISCHARGE INFORMATION: Discharge Disposition: Home Discharge Location: Home PATIENT EDUCATION INFORMATION Instructions: Constipation, Adult; Abdominal Pain, Adult Follow-Up: With: Address: When: GI doctor recommendation from PCP Within 3 to 5 days Comments: Take benttyl twice a day until seen by GI doctor to help with joesph cramping. Use Miralax daily to assist with regular bowel pattern. DIAGNOSIS: 1:Abdominal pain Patient Understands: Yes - Patient/family/careg iver verbalizes understanding of instructions given Comment: [facility] ED Note-Nursingon 09-17-2022 ED Note-Nursing arrived via private vehicle with c/o abd pain and intermitant nausea since lastnight lbm today. metformin for diabetes. vss. oriented to call light. [facility] ED Patient Summaryon 023 ED Patient Summary [facility] - Emergency Department [address] [place], [place] [id number] PATIENT DISCHARGE INSTRUCTIONS Patient Information Name: JESSICA PITTMAN Age: 52 Years Date of : 1970 Reason For Visit: Abdominal pain; ABDOMINAL PAIN Arrival Time: 09/17/2022 12:55:44 Primary Care Physician: Provider, None Attending Physician: Raphael Moreno MD Comment: Visit Diagnosis: Diagnoses This Visit Abdominal pain ([id number]) Abdominal pain (R10.9) The Pharmacy at [facility] is open Tuesday through Tuesday from 9A to 6P and Tuesday and Tuesday from 9A to 5P Prescription Information: If you have been given a prescription for narcotics, seek immediate medical attention if you have any difficulty breathing or any sudden status changes such as confusion and sleepiness. If you or anyone you know is experiencing suicidal thoughts, mental health, alcohol and/or drug addiction problems; contact the [facility] 04/10 Crisis Hotline -Text 1PHRD to 277848. If you received any narcotics, sedation, or any other medication that causes drowsiness for the next 24 hours, unless otherwise directed: ? Do not drive a car. ? Do not operate machinery such as power tools, lawn mowers, drills, sewing machines, or stoves ? Avoid alcoholic beverages and drugs for allergies, nerves, or sleep ? Do not make important personal or business decisions or sign any legal documents With: Address: When: GI doctor recommendation from PCP Within 3 to 5 days Comments: Take benttyl twice a day until seen by GI doctor to help with joesph cramping. Use Miralax daily to assist with regular bowel pattern. Medication Information: The exam and treatment you received today in the [facility] Emergency Department were for an urgent problem and are not intended as complete care. It is important for you to follow up with a doctor, nurse practitioner, or physician?s administrative assistant for ongoing care. If your symptoms become worse or you do not improve as expected and you are unable to reach your usual health care provider, you should return to the Emergency Department, we are available 24 hours a day. For those patients who have received Radiology results, the interpretation of your X-ray as given to you by our Emergency Department physician is only a preliminary report. The Radiologist will review your films and if there is a change in the diagnosis you will be notified by phone. Please make sure you have provided a working phone number so we can reach you if necessary. In the event that you had a lab culture while you were a patient in the Emergency Department, you will be notified by phone if there is a need to change your antibiotic. Please make sure you have provided a working phone number so we can reach you if necessary. [facility] Emergency Department has provided you with a complete list of medications post discharge. Please inform your hand etcher helper/provider of your visit and for further instruction on these medications. Any specific questions regarding your chronic medications and dosages should be discussed with your primary care physician(s) and/or pharmacist. New Medications [id number], [address] [facility] [place], [place] [id number], [phone] dicyclomine (dicyclomine 20 mg oral tablet) 1 tab(s) Oral 4 times a day for 14 Days. Refills: 0. Medications to Continue That Have Not Changed Other Medications metFORMIN (metFORMIN 500 mg oral tablet) 1 tab(s) Oral 2 times a day. Visit Information Allergies: Substance Reaction Symptoms Type Comments No Known Medication Allergies Drug Vital Signs: Vitals and Measurements this Visit (last charted value for your 09/17/2022 visit) Vital Signs This Visit Temperature Temporal: 36.3 DegC Peripheral Pulse Rate: 58 bpm Respiratory Rate: 18 br/min Systolic Blood Pressure: 134 mmHg Diastolic Blood Pressure: 71 mmHg SpO2: 98 % Oxygen Therapy: Room air Measurements This Visit Height/Length Dosin.000 cm Height/Length Estimated: 195.000 cm Weight Dosin.060 kg Weight Estimated: 102.060 kg Problems List: Problem Onset Comments No Problems found Patient Education Constipation, Adult Constipation is when a person has fewer than three bowel movements in a week, has difficulty having a bowel movement, or has stools (feces) that are dry, hard, or larger than normal. Constipation may be caused by an underlying condition. It may become worse with age if a person takes certain medicines and does not take in enough fluids. Follow these instructions at home: Eating and drinking ? Eat foods that have a lot of fiber, such as beans, whole grains, and fresh fruits and vegetables. ? Limit foods that are low in fiber and high in fat and processed sugars, such as fried or sweet foods. These include kinyarwanda fries, (more content not included)... Normal [facility] POCT Glucose Levelon 023 Glucose [Mass/Vol] 132 mg/dL High 74-118 [facility] Comment on above: Performed By: #### [id number] #### [facility] (DEFAULT) [address] [place] [address] XR Abdomen 2 Viewson 023 XR Abdomen 2 Views CLINICAL HISTORY: Abdominal pain and constipation. COMPARISON: None available. TECHNIQUE: Upright and recumbent radiographs of the abdomen and pelvis were obtained. FINDINGS: There is a non-obstructive bowel gas pattern, with mild scattered small bowel gas suggestive of an ileus. There is no significant constipation, evidence of pneumoperitoneum, pathologic calcifications, or other findings of concern identified. The visualized lung bases are clear. IMPRESSION: POSSIBLE MILD ILEUS. Final Signed (Electronic Signature): Pete Godinez MD 09/17/22 2:06 pm Technologist: Efrem ASKEW [facility] [place] XR foot RT min 3V*on 023 XR foot RT min 3V* [facility] Main [place] [address] [place] [address] XRay Report Signed Patient: Jessica Pittman MR#: [id number] 91 : 1970 Acct:[id number] Age/Sex: 52 / M ADM Date: 04/02/22 Loc: ER Room: Type: [facility] ER Attending Dr: Copies to: Jose Nixon DO Ordering Provider: Jose Nixon DO Date of Service: 04/03/22 XR/XR foot RT min 3V*: Extremity Injury, Lower RIGHT FOOT - 3 views CLINICAL HISTORY: Right foot pain. No known injury. COMPARISON: None FINDINGS: Toe positioning is suboptimal. No focal soft tissue abnormality. No acute bony process. Minimal degenerative change. No bony erosions. XR/XR foot RT min 3V* IMPRESSION: NO ACUTE BONY PROCESS. Impression dictated by: Ra Nicole Jr., D.O.04/03/2022 10:53 AM Dictation Location: [place] [address] Transcribed By: [facility] 04/03/22 1053 Dictated By: Ra Nicole Jr, DO 04/03/22 1052 Signed By: 04/03/22 1053 [facility] Glucose Glucometer (BldC) [M ass/Vol]Ordered By: Miguel Ángel Portillo on 01-23-2022 Glucose [Mass/Vol] 150 mg/dL [facility] Comment on above: Random Glucose Refer ence Range is dependent on time and content of last meal. Glucose of more than 200 mg/dL in a nonstressed, ambulatory subject supports the diagnosis of Diabetes Mellitus. Glucose Poct Glucometerson 1 03-25-2021 Glucose [Mass/Vol] 150 mg/dL Normal [facility] Comment on above: Result Comment: [facility] Glucose Reference Range is dependent on time and content of last meal. Glucose of more than 200 mg/dL in a nonstressed, ambulatory subject supports the diagnosis of Diabetes [facility]. PERFORMED BY: [facility] [address] [place] [address] PATHOLOGIST STAFF OCCUPATIONAL THERAPIST ERICK ACEVEDO M.D. Performed By: #### G LULS #### Point of Care testing , Vital Signs Date Time Vital Sign Value Performing Clinician Rea morelos 01-06-2023 14:14-0400 Body height 195.58 cm [facility] Work Phone: [facility] 01-06-2023 14:14-0400 Body temperature 97.4 [degF] [facility] Work Phone: [facility] 01-06-2023 14:14-0400 Body weight 107.1 kg [facility] Work Phone: [facility] 01-06-2023 14:14-0400 Diastolic blood pressure 64 mm[Hg] [facility] Work Phone: [facility] 01-06-2023 14:14-0400 Heart rate 65 /min [facility] Work Phone: [facility] 01-06-2023 14:14-0400 Respiratory rate 14 /min [facility] Work Phone: [facility] 01-06-2023 14:14-0400 SaO2% (BldA) [Mass fraction] 100 % [facility] Work Phone: [facility] 01-06-2023 14:14-0400 Systolic blood pressure 132 mm[Hg] [facility] Work Phone: [facility] 11-26-2022 20:11-0400 Body height 195.58 cm [facility] Work Phone: [facility] 11-26-2022 20:11-0400 Body temperature 98.1 [degF] [facility] Work Phone: [facility] 11-26-2022 20:11-0400 Body weight 109.9 kg [facility] Work Phone: [facility] 11-26-2022 20:11-0400 Diastolic blood pressure 63 mm[Hg] [facility] Work Phone: [facility] 11-26-2022 20:11-0400 Heart rate 82 /min [facility] Work Phone: [facility] 11-26-2022 20:11-0400 Respiratory rate 18 /min [facility] Work Phone: [facility] 11-26-2022 20:11-0400 SaO2% (BldA) [Mass fraction] 100 % [facility] Work Phone: [facility] 11-26-2022 20:11-0400 Systolic blood pressure 117 mm[Hg] [facility] Work Phone: [facility] 09-22-2022 22:03-0400 Body height 195.58 cm [facility] Work Phone: [facility] 09-22-2022 22:03-0400 Body temperature 97.8 [degF] [facility] Work Phone: [facility] 09-22-2022 22:03-0400 Body weight 105.8 kg [facility] Work Phone: [facility] 09-22-2022 22:03-0400 Diastolic blood pressure 72 mm[Hg] [facility] Work Phone: [facility] 09-22-2022 22:03-0400 Heart rate 80 /min [facility] Work Phone: [facility] 09-22-2022 22:03-0400 Respiratory rate 18 /min [facility] Work Phone: [facility] 09-22-2022 22:03-0400 SaO2% (BldA) [Mass fraction] 100 % [facility] Work Phone: [facility] 09-22-2022 22:03-0400 Systolic blood pressure 133 mm[Hg] [facility] Work Phone: [facility] 04-13-2022 15:02-0500 Body height 195.58 cm [employer] INSULATION SUPERVISOR Miguel Ángel Lindsey Work Phone: [facility] 04-13-2022 15:02-0500 Body temperature 98.2 [degF] P[employer] INSULATION SUPERVISOR Miguel Ángel Lindsey Work Phone: [facility] 04-13-2022 15:02-0500 Body weight 102.05 kg P[employer] INSULATION SUPERVISOR Miguel Ángel Lindsey Work Phone: [facility] 04-13-2022 15:02-0500 Diastolic blood pressure 70 mm[Hg] [employer] INSULATION SUPERVISOR Miguel Ángel Lindsey Work Phone: [facility] 04-13-2022 15:02-0500 Heart rate 85 /min [employer] INSULATION SUPERVISOR Miguel Ángel Lindsey Work Phone: [facility] 04-13-2022 15:02-0500 Respiratory rate 18 /min [employer] INSULATION SUPERVISOR Miguel Ángel Lindsey Work Phone: [facility] 04-13-2022 15:02-0500 SaO2% (BldA) [Mass fraction] 100 % [employer] INSULATION SUPERVISOR Miguel Ángel Lindsey Work Phone: [facility] 04-13-2022 15:02-0500 Systolic blood pressure 107 mm[Hg] P[employer] INSULATION SUPERVISOR Miguel Ángel Lindsey Work Phone: [facility] 04-03-2022 00:00-0500 Body height 195.58 cm P[employer] T[employer] INSULATION SUPERVISOR Miguel Ángel Lindsey Work Phone: [facility] 04-03-2022 00:00-0500 Body temperature 97.6 [degF] [employer] INSULATION SUPERVISOR Miguel Ángel Lindsey Work Phone: [facility] 04-03-2022 00:00-0500 Body weight 102.05 kg P[employer] INSULATION SUPERVISOR Miguel Ángel Lindsey Work Phone: [facility] 04-03-2022 00:00-0500 Diastolic blood pressure 78 mm[Hg] P[employer] INSULATION SUPERVISOR Miguel Ángel Lindsey Work Phone: [facility] 04-03-2022 00:00-0500 Heart rate 81 /min [employer] INSULATION SUPERVISOR Miguel Ángel Lindsey Work Phone: [facility] 04-03-2022 00:00-0500 Respiratory rate 18 /min [employer] INSULATION SUPERVISOR Miguel Ángel Lindsey Work Phone: [facility] 04-03-2022 00:00-0500 SaO2% (BldA) [Mass fraction] 99 % [employer] INSULATION SUPERVISOR Miguel Ángel Lindsey Work Phone: [facility] 04-03-2022 00:00-0500 Systolic blood pressure 130 mm[Hg] P[employer] INSULATION SUPERVISOR Miguel Ángel Lindsey Work Phone: [facility] 01-23-2022 08:55-0500 Body temperature 97.9 [degF] P[employer] INSULATION SUPERVISOR Miguel Ángel Lindsey Work Phone: [facility] 01-23-2022 08:55-0500 Diastolic blood pressure 74 mm[Hg] P[employer] INSULATION SUPERVISOR Miguel Ángel Lindsey Work Phone: [facility] 01-23-2022 08:55-0500 Heart rate 77 /min [employer] INSULATION SUPERVISOR Miguel Ángel Lindsey Work Phone: [facility] 01-23-2022 08:55-0500 Respiratory rate 18 /min P[employer] T[employer] INSULATION SUPERVISOR Miguel Ángel Portillo Work Phone: [facility] 01-23-2022 08:55-0500 SaO2% (BldA) [Mass fraction] 100 % [employer] INSULATION SUPERVISOR Miguel Ángel Portillo Work Phone: [facility] 01-23-2022 08:55-0500 Systolic blood pressure 118 mm[Hg] P[employer] INSULATION SUPERVISOR Miguel Ángel Portillo Work Phone: [facility] 01-23-2022 08:53-0500 Body height 195.58 cm PLASTIC T[employer] INSULATION SUPERVISOR Miguel Ángel Portillo Work Phone: [facility] 01-23-2022 08:53-0500 Body weight 104 kg P[employer] INSULATION SUPERVISOR Miguel Ángel Portillo Work Phone: [facility] Encounters Encounter Date Encounter Type Care Provider Facility Start: 01-06-2023 End: 01-06-2023 Emergency department patient visit Helena Bhatti Facility:[facility] Start: 01-06-2023 End: 01-06-2023 Emergency department patient visit [facility] Work Phone: [facility] Work Phone: Start: 11-26-2022 End: 11-27-2022 Emergency department patient visit [facility] Facility:[facility] Start: 11-26-2022 End: 11-26-2022 Emergency department patient visit [facility] Work Phone: [facility] Work Phone: Start: 10-06-2022 End: 10-06-2022 Emergency department patient visit Miguel Ángel Lindsey Facility:[facility] Start: 10-01-2022 End: 10-01-2022 Emergency department patient visit Jose Nixon Facility:[facility] Start: 09-22-2022 End: 09-23-2022 Emergency department [facility] Facility:[facility] Start: 09-22-2022 End: 09-22-2022 Emergency department patient visit [facility] Work Phone: [facility] Work Phone: Start: 09-17-2022 End: 09-17-2022 Emergency department patient visit None Provider Facility:[facility] Start: 04-13-2022 End: 04-13-2022 [facility] Facility[facility] Start: 04-13-2022 End: 04-13-2022 Emergency department patient visit FRANCO Portillo Work Phone: [facility] Work Phone: Start: 04-03-2022 End: 04-03-2022 [facility] Facility[facility] Start: 04-02-2022 End: 04-03-2022 Emergency department patient visit FRANCO Portillo Work Phone: [facility] Work Phone: Start: 01-23-2022 End: 01-23-2022 [facility] Facility[facility] Start: 01-23-2022 End: 01-23-2022 Emergency department patient visit FRANCO Portillo Work Phone: [facility] Procedures Date Procedure Procedure Detail Performing Clinician Start: 04-03-2022 X-ray of right foot APR N Miguel Ángel Portillo Work Phone: Plan of Treatment Date Care Activity Detail Author Start: 01-06-2023 Plain chest X-ray XR chest 2V* [facility] Start: 01-06-2023 XR Chest 2 Views [facility] Start: 04-03-2022 X-ray of right foot XR foot RT min 3 V* [facility] Start: 04-03-2022 XR Foot - right GE 3 Views [facility] Patient Education [facility] Work Phone: Patient referral [facility] Work Phone: Payers Date Payer Category Payer Private Health Insurance [id number] 2022 Private Health Insurance [id number] 2022 Self-pay [id number] 1970 Unknown [id number] Unknown Regular Auto/Liability [id number] Unknown Insurance No Card [id number] Unknown [id number] 31 Unknown [id number] 31 Unknown [id number] 31 Unknown [id number] 31 Unknown [id number] 31 Unknown [id number] 31 Unknown [id number] 31 Unknown [id number] 31 Social History Date Type Detail Facility Start: 01-23-2022 End: 01-06-2023 Tobacco smoking status NHIS Never smoked tobacco (finding) [facility] Start: 1970 Sex Assigned At Male F [facility] Clinical Note 09-17-2022 Note Date & Type Note Facility 09-17-2022 Note Education Materials Gastroenterology Constipation, Adult Constipation is when a person has fewer than three bowel movements in a week, has difficulty having a bowel movement, or has stools (feces) that are dry, hard, or larger than normal. Constipation may be caused by an underlying condition. It may become worse with age if a person takes certain medicines and does not take in enough fluids. Follow these instructions at home: Eating and drinking ? Eat foods that have a lot of fiber, such as beans, whole grains, and fresh fruits and vegetables. ? Limit foods that are low in fiber and high in fat and processed sugars, such as fried or sweet foods. These include kinyarwanda fries, hamburgers, cookies, candies, and soda. ? Drink enough fluid to keep your urine pale yellow. General instructions ? Exercise regularly or as told by your health care provider. Try to do 150 minutes of moderate exercise each week. ? Use the bathroom when you have the urge to go. Do not hold it in. ? Take mymp-qgk-wmaifoy and prescription medicines only as told by your health care provider. This includes any fiber supplements. ? During bowel movements: ? Practice deep breathing while relaxing the lower abdomen. ? Practice pelvic floor relaxation. ? Watch your condition for any changes. Let your health care provider know about them. ? Keep all follow-up visits as told by your health care provider. This is important. Contact a health care provider if: ? You have pain that gets worse. ? You have a fever. ? You do not have a bowel movement after 4 days. ? You vomit. ? You are not hungry or you lose weight. ? You are bleeding from the opening between the buttocks (anus). ? You have thin, pencil-like stools. Get help right away if: ? You have a fever and your symptoms suddenly get worse. ? You leak stool or have blood in your stool. ? Your abdomen is bloated. ? You have severe pain in your abdomen. ? You feel dizzy or you faint. Summary ? Constipation is when a person has fewer than three bowel movements in a week, has difficulty having a bowel movement, or has stools (feces) that are dry, hard, or larger than normal. ? Eat foods that have a lot of fiber, such as beans, whole grains, and fresh fruits and vegetables. ? Drink enough fluid to keep your urine pale yellow. ? Take lebx-kar-vtceqpc and prescription medicines only as told by your health care provider. This includes any fiber supplements. This information is not intended to replace advice given to you by your health care provider. Make sure you discuss any questions you have with your health care provider. Document Revised: 01/16/2020 Document Reviewed: 01/16/2020 [employer] Patient Education ? 2022 [employer] Abdominal Pain, Adult Pain in the abdomen (abdominal pain) can be caused by many things. Often, abdominal pain is not serious and it gets better with no treatment or by being treated at home. However, sometimes abdominal pain is serious. Your health care provider will ask questions about your medical history and do a physical exam to try to determine the cause of your abdominal pain. Follow these instructions at home: Medicines ? Take rgdq-sck-mlhopvi and prescription medicines only as told by your health care provider. ? Do not take a laxative unless told by your health care provider. General instructions ? Watch your condition for any changes. ? Drink enough fluid to keep your urine pale yellow. ? Keep all follow-up visits as told by your health care provider. This is important. Contact a health care provider if: ? Your abdominal pain changes or gets worse. ? You are not hungry or you lose weight without trying. ? You are constipated or have diarrhea for more than 2?3 days. ? You have pain when you urinate or have a bowel movement. ? Your abdominal pain wakes you up at night. ? Your pain gets worse with meals, after eating, or with certain foods. ? You are vomiting and cannot keep anything down. ? You have a fever. ? You have blood in your urine. Get help right away if: ? Your pain does not go away as soon as your health care provider told you to expect. ? You cannot stop vomiting. ? Your pain is only in areas of the abdomen, such as the right side or the left lower portion of the abdomen. Pain on the right side could be caused by appendicitis. ? You have bloody or black stools, or stools that look like tar. ? You have severe pain, cramping, or bloating in your abdomen. ? You have signs of dehydration, such as: ? Dark urine, very little urine, or no urine. ? Cracked lips. ? Dry mouth. ? Sunken eyes. ? Sleepiness. ? Weakness. ? You have trouble breathing or chest pain. Summary ? Often, abdominal pain is not serious and it gets better with no treatment or by being treated at home. However, sometimes abdominal pain is serious. ? Watch your condition for any (more content not included)... [facility] Evaluation note Note Date & Type Note Facility Evaluation note No assessment information availa ble [facility] Work Phone: Hospital Discharge instructions Note Date & Type Note Facility Hospital Discharge instructions Additional Instructions Stop the gabapentin(Neurontin) if you feel the Lyrica prescribed today. You must follow-up with health department next week for further evaluation and treatment. [facility] Work Phone: Hospital Discharge instructions Note Date & Type Note Facility Hospital Discharge instructions Additional Instructions If your symptoms return/worsen or you develop any further concerns or symptoms please see your doctor or return to the emergency department immediately. [facility] Work Phone: Hospital Discharge instructions Note Date & Type Note Facility Hospital Discharge instructions Additional Instructions Rest as needed Increase oral fluids May take qqna-bzz-gsswrim Mucinex or Coricidin for symptoms May do warm salt water gargles throat lozenges cough drops Follow-up with family doctor as needed Return to the ER for high fever difficulty breathing chest pain or any other concerns [facility] Work Phone: Chief Complaint and Reason for Visit Chief Complaint foot pain Chief Complaint foot pain R foot pain Chief Complaint foot pain R foot pain mouth pain Chief Complaint stomach pain Chief Complaint L hand lac body aches Advance Directives No Advanced Directives Records Found Advance Directive Response Recorded Date/ Time Advance Directives No September 08 1:01pm Advance Directive Response Recorded Date/ Time Advance Directives No September 08 2:01pm Summary Purpose Family History No Family History Records FoundNo Family History Records Found Additional Source Comments Care Teams (unrecognized sec tion and content) Team Status: Inactive Member Role Status Dates Miguel Ángel Portillo APRN Emergency Provider Active [facility] Primary Care Provider Active Team Status: Active Member Role Status Dates [facility] Primary Care Provider Active Team Status: Inactive Member Role Status Dates [facility] Primary Care Provider Active Jose Nixon , Emergency Provider Active Team Status: Inactive Member Role Status Dates [facility] Primary Care Provider Active Miguel Ángel Portillo APRN Emergency Provider Active Team Status: Inactive Member Role Status Dates [facility] Primary Care Provider Active Preston Pike DO Emergency Provider Active Team Status: Inactive Member Role Status Dates [facility] Primary Care Provider Active Ivan Aleman PA-C Emergency Provider Active Team Status: Inactive Member Role Status Dates [facility] Primary Care Provider Active Helena Bhatti , BILINGUAL MANAGER- Emergency Provider Active Goals (unrecognized section and content) Goals may be documented in a n alternate sectionGoals may be documented in an alternate sectionGoals may be documented in an alternate sectionGoals may be documented in an alternate sectionGoals may be documented in an alternate section (unrecognized sect ion and content) No Status Records FoundNo Status Records Found INFORMATION SOURCE (unrecogn ized section and content) DATE CREATED AUTHOR 09/25/2022 [facility] DATE CREATED AUTHOR AUTHOR'S ORGANIZ ATION 01/19/2023 [facility] FOR RECORDS PERTAINING TO PATIENTS WHO ARE OR HAVE BEEN ENROLLED IN A CHEMICAL DEPENDENCY/SUBSTANCEABUSE PROGRAM, SOME INFORMATION MAY BE OMITTED. This clinical summary was aggregated from multiple sources. Caution should be exercised in using it in the provision of clinical care. This summary normalizes information from multiple sources, and as a consequence, information in this document may materially change the coding, format and clinical context of patient data. In addition, data may be omitted in some cases. CLINICAL DECISIONS SHOULD BE BASED ON THE PRIMARY CLINICAL RECORDS. [employer] provides no warranty or guarantee of the accuracy or completeness of information in this document.
== END 2023-03-17 15:09 | disposition home or self-care (01) ==
LOC: WC 15:08
PROVIDERS: Visit Provider Physician Assistant
DX: E11.621 Type 2 diabetes mellitus with foot ulcer (principal); L97.415 Non-pressure chronic ulcer of right heel and midfoot with muscle involvement without evidence of necrosis
CPT/HCPCS: 11042; 29445

== ENCOUNTER 2023-03-28 15:31 | Outpatient (OUT) | payer OTHER, SELFPAY ==
--- OUTSIDE RECORDS SUMMARY | 2023-03-28 15:33 | XMS_ITS | CCD ---
Author Name Unknown Address [id number] [place] [address] Organization [facility] Care Team Providers Care [employer] Name Role Phone FRANCO Portillo Emergency Provider [facility], [facility] Primary Care Provider [phone] DO Jose Nixon Emergency Provider [facility], [facility] Primary Care Provider [phone] DO Preston Pike Emergency Provider Provider, None Primary Care Unavailable Madeleine Kapadia Attending Unavailable Madeleine Kapadia Admitting Unavailable [facility] Primary Care Provider KELSIE Aleman Emergency Provider Davy [facility] Helena Luke Emergency Provider [facility], [facility] Primary Care Unavailable Ivan Aleman Admitting Unavailable Ivan Aleman Attending Unavailable Helena Bhatti Attending Unavailable [facility], [facility] Primary Care Unavailable Lola Bhattier E Admitting Unavailable [facility], [facility] Primary Care Unavailable Preston Pike Admitting Unavailable Preston Pike Attending Unavailable [facility], [facility] Primary Care Unavailable Miguel Ángel Portillo Admitting Unavailable Miguel Ángel Portillo Attending Unavailable [facility], [facility] Primary Care Unavailable Jose Nixon Admitting Unavailable Jose Nixon Attending Unavailable [facility], [facility] Primary Care Unavailable Miguel Ángel Portillo Admitting Unavailable Miguel Ángel Portillo Attending Unavailable Tiffani, Jose A Admitting Unavailable KeisterJose Attending Unavailable [facility], [facility] Primary Care Unavailable Miguel Ángel Portillo Admitting Unavailable Miguel Ángel Portillo Attending [facility] Primary Care Unavailable Allergies Allergy Classification Reported Allergen(s) Allergy Type Date of Onset Reaction(s) Facility (1 source) No Known Medication Allergies; Translations: [No Known Medication Allergies] Propensity to adverse reactions to drug (disorder) [facility] Repository Medications Current Medications Medication Drug Class(es) [...] XR chest 2V*on 01-06-2023 XR chest 2V* [place] [address] XRay Report Signed Patient: Jessica Pittman MR#: [id number] 91 : 1970 Acct:[id number] Age/Sex: 52 / M ADM Date: 01/06/23 Loc: ER Room: Type: [facility] ER Attending Dr: Copies to: LUTHER Holm Ordering Provider: LUTHER Holm Date of Service: 01/06/23 XR/XR chest 2V*: Upper Respiratory Infection PA AND LATERAL CHEST: CLINICAL HISTORY: Body aches, chills and productive cough and diarrhea COMPARISON: 10/29/2006 The nodular asymmetry at the right lower lung is not obvious on the comparison chest x-ray though is seen on exchange specialist view from an abdominal CT from December 30, 20192013. There is no focal parenchymal consolidation, effusion or pneumothorax. The cardiac, hilar and mediastinal silhouettes are within normal limits. There is no vascular congestion. The visualized bony thorax is intact. Endplate spurring is present. XR/XR chest 2V* IMPRESSION: NO ACUTE CARDIOPULMONARY ABNORMALITY. Impression dictated by: Amy Quiles M.D.01/06/2023 3:05 PM Dictation Location: [place] [address] Transcribed By: [facility] 01/06/23 1505 Dictated By: Amy Quiles MD 01/06/23 1502 Signed By: 01/06/[address] [facility] Complete Blood Count Auto Di ffon 10-06-2022 Basophils (Bld) [#/Vol] 0.0 10*3/uL Normal 0.0-0.[address] [facility] Comment on above: Performed By: #### H EPATIC, LIPASE, CBC, ESR, CMP ####[address] Basophils/100 WBC (Bld) 0.7 % Normal . [facility] Comment on above: Performed By: #### H EPATIC, LIPASE, CBC, ESR, CMP ####[address] Eosinophils (Bld) [#/Vol] 0.2 10*3/uL Normal 0.0-0.[address] [facility] Comment on above: Performed By: #### H EPATIC, LIPASE, CBC, ESR, CMP ####[address] Eosinophils/100 WBC (Bld) 3.2 % Normal . [facility] Comment on above: Performed By: #### H EPATIC, LIPASE, CBC, ESR, CMP ####[address] Erythrocyte distribution width (RBC) [Ratio] 12.8 % Normal 12.0-14.[address] [facility] Comment on above: Performed By: #### H EPATIC, LIPASE, CBC, ESR, CMP ####[address] Hematocrit (Bld) [Volume fraction] 38.9 % Normal 38.8-50.[address] [facility] Comment on above: Performed By: #### H EPATIC, LIPASE, CBC, ESR, CMP ####[address] Hemoglobin (Bld) [Mass/Vol] 13.2 g/dL Normal 13.0-17.[address] [facility] Comment on above: Performed By: #### H EPATIC, LIPASE, CBC, ESR, CMP ####[address] Lymphocytes (Bld) [#/Vol] 2.3 10*3/uL Normal 1.00-4.[address] [facility] Comment on above: Performed By: #### H EPATIC, LIPASE, CBC, ESR, CMP ####[address] Lymphocytes/100 WBC (Bld) 35.1 % Normal . [facility] Comment on above: Performed By: #### H EPATIC, LIPASE, CBC, ESR, CMP ####[address] MCH (RBC) [Entitic mass] 30.2 pg Normal 27.5-35.[address] [facility] Comment on above: Performed By: #### H EPATIC, LIPASE, CBC, ESR, CMP ####[address] MCV (RBC) [Entitic vol] 89.2 fL Normal 83.5-[address] [facility] Comment on above: Performed By: #### H EPATIC, LIPASE, CBC, ESR, CMP ####[address] Mean Corpuscular HGB Conc 33.9 g/dL Normal 32.5-35.[address] [facility] Comment on above: Performed By: #### H EPATIC, LIPASE, CBC, ESR, CMP ####[address] Monocytes (Bld) [#/Vol] 0.6 10*3/uL Normal 0.0-0.[address] [facility] Comment on above: Performed By: #### H EPATIC, LIPASE, CBC, ESR, CMP ####[facility] [address] Monocytes/100 WBC (Bld) 16.18 % Normal 0.00-20.[address] [facility] Comment on above: Performed By: #### H EPATIC, LIPASE, CBC, ESR, CMP ####[address] Monocytes/100 WBC (Bld) 8.7 % Normal . [facility] Comment on above: Performed By: #### H EPATIC, LIPASE, CBC, ESR, CMP ####[address] Neutrophils (Bld) [#/Vol] 3.4 10*3/uL Normal 1.8-7.[address] [facility] Comment on above: Performed By: #### H EPATIC, LIPASE, CBC, ESR, CMP ####[address] Neutrophils/100 WBC (Bld) 52.3 % Normal . [facility] Comment on above: Performed By: #### H EPATIC, LIPASE, CBC, ESR, CMP ####[address] NRBC% 0.1 /100{WBC} Normal 0-0.[address] [facility] Comment on above: Performed By: #### H EPATIC, LIPASE, CBC, ESR, CMP ####[address] Platelet mean volume (Bld) [Entitic vol] 7.2 fL Normal 6.6-10.[address] [facility] Comment on above: Performed By: #### H EPATIC, LIPASE, CBC, ESR, CMP ####[address] Platelets (Bld) [#/Vol] 279 10*3/uL Normal 150-[address] [facility] Comment on above: Performed By: #### H EPATIC, LIPASE, CBC, ESR, CMP ####[address] RBC (Bld) [#/Vol] 4.37 10*6/uL Normal 3.90-5.60 [facility] Comment on above: Performed By: #### H EPATIC, LIPASE, CBC, ESR, CMP ####[facility] [address] WBC (Bld) [#/Vol] 6.6 10*3/uL Normal 4.1-10.5 [facility] Comment on above: Performed By: #### H EPATIC, LIPASE, CBC, ESR, CMP ####[facility] Comprehensive Metabolic Pane ofe 10-06-2022 Albumin [Mass/Vol] 4.8 g/dL Normal 3.5-5.7 [facility] Comment on above: Performed By: #### H EPATIC, LIPASE, CBC, ESR, CMP #### [facility] [address] Albumin/Globulin [Mass ratio] 1.5 {ratio} Normal [facility] Comment on above: Performed By: #### H EPATIC, LIPASE, CBC, ESR, CMP #### [facility] [address] ALP [Catalytic activity/Vol] 110 U/L High 34-[address] [facility] Comment on above: Performed By: #### H EPATIC, LIPASE, CBC, ESR, CMP #### [facility] [address] ALT [Catalytic activity/Vol] 42 U/L Normal 7-[address] [facility] Comment on above: Performed By: #### H EPATIC, LIPASE, CBC, ESR, CMP #### [facility] [address] Anion gap [Moles/Vol] 9.1 mmol/L Normal 6.0-15.[address] [facility] Comment on above: Performed By: #### H EPATIC, LIPASE, CBC, ESR, CMP #### [facility] [address] AST [Catalytic activity/Vol] 29 U/L Normal 13-[address] [facility] Comment on above: Performed By: #### H EPATIC, LIPASE, CBC, ESR, CMP #### [address] Bilirubin [Mass/Vol] 0.4 mg/dL Normal 0.3-1.[address] [facility] Comment on above: Performed By: #### H EPATIC, LIPASE, CBC, ESR, CMP #### [address] Calcium [Mass/Vol] 9.6 mg/dL Normal 8.6-10.3 [facility] Comment on above: Performed By: #### H EPATIC, LIPASE, CBC, ESR, CMP #### [address] Chloride [Moles/Vol] 106 mmol/L Normal 98-[address] [facility] Comment on above: Performed By: #### H EPATIC, LIPASE, CBC, ESR, CMP #### [address] CO2 [Moles/Vol] 26.7 mmol/L Normal 21.0-31.0 [facility] Comment on above: Performed By: #### H EPATIC, LIPASE, CBC, ESR, CMP #### [address] Creatinine [Mass/Vol] 1.05 mg/dL Normal 0.70-1.[address] [facility] Comment on above: Performed By: #### H EPATIC, LIPASE, CBC, ESR, CMP #### [address] Creatinine Clr Calc Pharmacy 106.07 [facility] Comment on above: Performed By: #### H EPATIC, LIPASE, CBC, ESR, CMP #### [address] GFR/1.73 sq M.predicted MDRD (S/P/Bld) [Vol rate/Area] mL/min/{1.73_m2} [facility] Comment on above: Performed By: #### H EPATIC, LIPASE, CBC, ESR, CMP #### [facility] [address] Globulin (S) [Mass/Vol] 3.2 g/dL Normal [facility] Comment on above: Performed By: #### H EPATIC, LIPASE, CBC, ESR, CMP #### [facility] [address] Glucose [Mass/Vol] 160 mg/dL High 70-100 [facility] Comment on above: Result Comment: [facility] Glucose Reference Range is dependent on time and content of last meal. Glucose of more than 200 mg/dL in a nonstressed, ambulatory subject supports the diagnosis of Diabetes Mellitus. ADA recommended reference range Performed By: #### H EPATIC, LIPASE, CBC, ESR, CMP #### [facility] [address] Potassium [Moles/Vol] 3.8 mmol/L Normal 3.5-5.[address] [facility] Comment on above: Performed By: #### H EPATIC, LIPASE, CBC, ESR, CMP #### [facility] [address] Protein [Mass/Vol] 8.0 g/dL Normal 6.4-8.9 [facility] Comment on above: Performed By: #### H EPATIC, LIPASE, CBC, ESR, CMP #### [address] Sodium [Moles/Vol] 138 mmol/L Normal 136-145 [facility] Comment on above: Performed By: #### H EPATIC, LIPASE, CBC, ESR, CMP #### [facility] [address] Urea nitrogen [Mass/Vol] 12 mg/dL Normal 7-[address] [facility] Comment on above: Performed By: #### H EPATIC, LIPASE, CBC, ESR, CMP #### [facility] [address] Erythrocyte Sedimentation Ra mahsa 10-06-2022 ESR (Bld) [Velocity] 15 mm/h Normal 0-[address] [facility] Comment on above: Result Comment: PERF ORMED BY: [facility] [address] [place] [address] PATHOLOGIST TURN OUT WORKER ERICK ACEVEDO M.D. Performed By: #### H EPATIC, LIPASE, CBC, ESR, CMP ####[address] Hepatic Panelon 10-06-2022 Bilirubin,Indirect 0.3 mg/dL Normal [facility] Comment on above: Performed By: #### H EPATIC, LIPASE, CBC, ESR, CMP #### [facility] [address] Bilirubin.indirect [Mass/Vol] 0.10 mg/dL Normal 0.03-0.[address] [facility] Comment on above: Performed By: #### H EPATIC, LIPASE, CBC, ESR, CMP #### [address] Lipaseon 10-06-2022 Lipase [Catalytic activity/Vol] 65.0 U/L Normal 11.0-82.[address] [facility] Comment on above: Result Comment: PERF ORMED BY: [place] [address] PATHOLOGIST TURN OUT WORKER ERICK ACEVEDO M.D. Performed By: #### H EPATIC, LIPASE, CBC, ESR, CMP ####[address] Basic Metabolic Panelon 09-12 Anion gap [Moles/Vol] 9.2 mmol/L Normal 6.0-15.[address] [facility] Comment on above: Performed By: #### C BC, HEPATIC, BMP, LIPASE #### [address] Calcium [Mass/Vol] 9.6 mg/dL Normal 8.6-10.3 [facility] Comment on above: Performed By: #### C BC, HEPATIC, BMP, LIPASE #### [address] Chloride [Moles/Vol] 105 mmol/L Normal 98-[address] [facility] Comment on above: Performed By: #### C BC, HEPATIC, BMP, LIPASE #### [facility] [address] CO2 [Moles/Vol] 27.9 mmol/L Normal 21.0-31.0 [facility] Comment on above: Performed By: #### C BC, HEPATIC, BMP, LIPASE #### [facility] [address] Creatinine [Mass/Vol] 1.17 mg/dL Normal 0.70-1.[address] [facility] Comment on above: Performed By: #### C BC, HEPATIC, BMP, LIPASE #### [facility] [address] Creatinine Clr Calc Pharmacy 103.27 [facility] Comment on above: Performed By: #### C BC, HEPATIC, BMP, LIPASE #### [facility] [address] [place] [address] [place] GFR/1.73 sq M.predicted MDRD (S/P/Bld) [Vol rate/Area] mL/min/{1.73_m2} [facility] Comment on above: Performed By: #### C BC, HEPATIC, BMP, LIPASE #### [address] Glucose [Mass/Vol] 140 mg/dL High 70-100 [facility] Comment on above: Result Comment: [facility] Glucose Reference Range is dependent on time and content of last meal. Glucose of more than 200 mg/dL in a nonstressed, ambulatory subject supports the diagnosis of Diabetes Mellitus. ADA recommended reference range Performed By: #### C BC, HEPATIC, BMP, LIPASE #### [facility] [address] Potassium [Moles/Vol] 4.1 mmol/L Normal 3.5-5.[address] [facility] Comment on above: Performed By: #### C BC, HEPATIC, BMP, LIPASE #### [facility] [address] [place] [address] [place] Sodium [Moles/Vol] 138 mmol/L Normal 136-145 [facility] Comment on above: Performed By: #### C BC, HEPATIC, BMP, LIPASE #### [facility] [address] Urea nitrogen [Mass/Vol] 11 mg/dL Normal 7-[address] [facility] Comment on above: Performed By: #### C BC, HEPATIC, BMP, LIPASE #### [facility] [address] abdomen pelvis w conon CT abdomen pelvis w con [facility] [place] [address] [place] [address] CT Scan Report Signed Patient: Jessica Pittman MR#: [id number] 91 : 1970 Acct:[id number] Age/Sex: 52 / M ADM Date: 10/01/22 Loc: ER Room: Type: [facility] ER Attending Dr: Copies to: Jose Nixon [...] Teofilo Ulloa M.D.10/01/2022 5:38 PM Dictation Location: [place] [address] Transcribed By: [facility] 10/01/22 173 Dictated By: Teofilo Ulloa II, MD 10/01/22 172 Signed By: 10/01/[address] [facility] Complete Blood Count Auto Di ffon 10-01-2022 Basophils (Bld) [#/Vol] 0.1 10*3/uL Normal 0.0-0.[address] [facility] Comment on above: Result Comment: PERF ORMED BY: [place] [address] PATHOLOGIST TURN OUT WORKER ERICK ACEVEDO M.D. Performed By: #### C BC, HEPATIC, BMP, LIPASE #### [address] Basophils/100 WBC (Bld) 0.7 % Normal . [facility] Comment on above: Performed By: #### C BC, HEPATIC, BMP, LIPASE #### [facility] [address] Eosinophils (Bld) [#/Vol] 0.1 10*3/uL Normal 0.0-0.[address] [facility] Comment on above: Performed By: #### C BC, HEPATIC, BMP, LIPASE #### [facility] [address] [place] [address] [place] Eosinophils/100 WBC (Bld) 1.2 % Normal . [facility] Comment on above: Performed By: #### C BC, HEPATIC, BMP, LIPASE #### [address] Erythrocyte distribution width (RBC) [Ratio] 12.8 % Normal 12.0-14.[address] [facility] Comment on above: Performed By: #### C BC, HEPATIC, BMP, LIPASE #### [address] Hematocrit (Bld) [Volume fraction] 40.4 % Normal 38.8-50.[address] [facility] Comment on above: Performed By: #### C BC, HEPATIC, BMP, LIPASE #### [address] Hemoglobin (Bld) [Mass/Vol] 13.4 g/dL Normal 13.0-17.[address] [facility] Comment on above: Performed By: #### C BC, HEPATIC, BMP, LIPASE #### [address] Lymphocytes (Bld) [#/Vol] 1.9 10*3/uL Normal 1.00-4.[address] [facility] Comment on above: Performed By: #### C BC, HEPATIC, BMP, LIPASE #### [address] Lymphocytes/100 WBC (Bld) 21.4 % Normal . [facility] Comment on above: Performed By: #### C BC, HEPATIC, BMP, LIPASE #### [address] MCH (RBC) [Entitic mass] 29.7 pg Normal 27.5-35.[address] [facility] Comment on above: Performed By: #### C BC, HEPATIC, BMP, LIPASE #### [address] MCV (RBC) [Entitic vol] 89.7 fL Normal 83.5-[address] [facility] Comment on above: Performed By: #### C BC, HEPATIC, BMP, LIPASE #### [address] Mean Corpuscular HGB Conc 33.1 g/dL Normal 32.5-35.[address] [facility] Comment on above: Performed By: #### C BC, HEPATIC, BMP, LIPASE #### [address] [place] [address] [place] Monocytes (Bld) [#/Vol] 0.8 10*3/uL Normal 0.0-0.[address] [facility] Comment on above: Performed By: #### C BC, HEPATIC, BMP, LIPASE #### [facility] [address] [place] [address] [place] Monocytes/100 WBC (Bld) 15.24 % Normal 0.00-20.[address] [facility] Comment on above: Performed By: #### C BC, HEPATIC, BMP, LIPASE #### [facility] [address] [place] [address] [place] Monocytes/100 WBC (Bld) 9.5 % Normal . [facility] Comment on above: Performed By: #### C BC, HEPATIC, BMP, LIPASE #### [facility] [address] [place] [address] Neutrophils (Bld) [#/Vol] 5.9 10*3/uL Normal 1.8-7.[address] [facility] Comment on above: Performed By: #### C BC, HEPATIC, BMP, LIPASE #### [facility] [address] [place] [address] Neutrophils/100 WBC (Bld) 67.2 % Normal . [facility] Comment on above: Performed By: #### C BC, HEPATIC, BMP, LIPASE #### [facility] [address] [place] [address] [place] NRBC% 0.1 /100{WBC} Normal 0-0.[address] [facility] Comment on above: Performed By: #### C BC, HEPATIC, BMP, LIPASE #### [facility] [address] [place] [address] [place] Platelet mean volume (Bld) [Entitic vol] 7.1 fL Normal 6.6-10.[address] [facility] Comment on above: Performed By: #### C BC, HEPATIC, BMP, LIPASE #### [facility] [address] [place] [address] [place] Platelets (Bld) [#/Vol] 291 10*3/uL Normal 150-[address] [facility] Comment on above: Performed By: #### C BC, HEPATIC, BMP, LIPASE #### [facility] [address] RBC (Bld) [#/Vol] 4.51 10*6/uL Normal 3.90-5.60 [facility] Comment on above: Performed By: #### C BC, HEPATIC, BMP, LIPASE #### [facility] [address] WBC (Bld) [#/Vol] 8.8 10*3/uL Normal 4.1-10.5 [facility] Comment on above: Performed By: #### C BC, HEPATIC, BMP, LIPASE #### [facility] [address] Dipstick and Microscopicon 0 10-01-2022 Appearance (U) Clear Normal Clear [facility] Comment on above: Order Comment: Name Collection Type:: Clean-Voided Midstream Performed By: #### A DDONUAPLUS ####[address] Bacteria,Urine None Seen Normal None Seen [facility] Comment on above: Order Comment: Name Collection Type:: Clean-Voided Midstream Performed By: #### A DDONUAPLUS ####[address] Bilirubin,Urine Negative Normal Negative [facility] Comment on above: Order Comment: Name Collection Type:: Clean-Voided Midstream Performed By: #### A DDONUAPLUS ####[address] Color (U) Yellow Normal Yellow [facility] Comment on above: Order Comment: Name Collection Type:: Clean-Voided Midstream Performed By: #### A DDONUAPLUS ####[address] Glucose Ql (U) 100 mg/dL High Normal [facility] Comment on above: Order Comment: Name Collection Type:: Clean-Voided Midstream Performed By: #### A DDONUAPLUS ####[address] [place] [address] [place] Hyaline Casts,Urine None Seen Normal 0-[address] [facility] Comment on above: Order Comment: Name Collection Type:: Clean-Voided Midstream Performed By: #### A DDONUAPLUS ####[address] [address] [facility] Ketones Ql (U) Negative Normal Negative [facility] Comment on above: Order Comment: Name Collection Type:: Clean-Voided Midstream Performed By: #### A DDONUAPLUS ####[address] [address] [facility] Leukocyte esterase Test strip Ql (U) 2+ High Negative [facility] Comment on above: Order Comment: Name Collection Type:: Clean-Voided Midstream Performed By: #### A DDONUAPLUS ####[address] [address] [facility] Nitrite,Urine Negative Normal Negative [facility] Comment on above: Order Comment: Name Collection Type:: Clean-Voided Midstream Performed By: #### A DDONUAPLUS ####[address] [address] [place] Occult Blood,Urine Negative Normal Negative [facility] Comment on above: Order Comment: Name Collection Type:: Clean-Voided Midstream Result Comment: PERF ORMED BY: [facility] [address] [place] [address] PATHOLOGIST TURN OUT WORKER ERICK ACEVEDO M.D. Performed By: #### A DDONUAPLUS ####[address] [address] [place] pH (U) 5.0 [pH] Normal 5.0-9.[address] [facility] Comment on above: Order Comment: Name Collection Type:: Clean-Voided Midstream Performed By: #### A DDONUAPLUS ####[address] [address] [place] Protein,Urine Negative Normal Negative [facility] Comment on above: Order Comment: Name Collection Type:: Clean-Voided Midstream Performed By: #### A DDONUAPLUS ####[address] [address] [facility] RBC LM.HPF (Urine sed) [#/Area] 0 /[HPF] Normal 0-[address] [facility] Comment on above: Order Comment: Name Collection Type:: Clean-Voided Midstream Performed By: #### A DDONUAPLUS ####[address] Specificy [place],Urine 1.029 Normal 1.001-1.[address] [facility] Comment on above: Order Comment: Name Collection Type:: Clean-Voided Midstream Performed By: #### A DDONUAPLUS ####[address] Squamous Epithelial Cell,Urine None Seen Normal 0-[address] [facility] Comment on above: Order Comment: Name Collection Type:: Clean-Voided Midstream Performed By: #### A DDONUAPLUS ####[address] Urobilinogen,Urine Normal Normal Normal [facility] Comment on above: Order Comment: Name Collection Type:: Clean-Voided Midstream Performed By: #### A DDONUAPLUS ####[address] WBC LM.HPF (Urine sed) [#/Area] 0 /[HPF] Normal 0-[address] [facility] Comment on above: Order Comment: Name Collection Type:: Clean-Voided Midstream Performed By: #### A DDONUAPLUS ####[address] Yeast,Urine 2+ Critically abnormal None Seen [facility] Comment on above: Order Comment: Name Collection Type:: Clean-Voided Midstream Result Comment: PERF ORMED BY: [facility] [address] [place] [address] PATHOLOGIST TURN OUT WORKER ERICK ACVEEDO M.D. Performed By: #### A DDONUAPLUS ####[address] Hepatic Panelon 10-01-2022 Albumin [Mass/Vol] 4.7 g/dL Normal 3.5-5.7 [facility] Comment on above: Performed By: #### C BC, HEPATIC, BMP, LIPASE #### [facility] [address] Albumin/Globulin [Mass ratio] 1.3 {ratio} Normal [facility] Comment on above: Performed By: #### C BC, HEPATIC, BMP, LIPASE #### [facility] [facility] [address] ALP [Catalytic activity/Vol] 101 U/L Normal 34-[address] [facility] Comment on above: Performed By: #### C BC, HEPATIC, BMP, LIPASE #### [facility] [address] ALT [Catalytic activity/Vol] 31 U/L Normal 7-[address] [facility] Comment on above: Performed By: #### C BC, HEPATIC, BMP, LIPASE #### [facility] [address] [place] [address] AST [Catalytic activity/Vol] 23 U/L Normal 13-[address] [facility] Comment on above: Performed By: #### C BC, HEPATIC, BMP, LIPASE #### [address] Bilirubin [Mass/Vol] 0.4 mg/dL Normal 0.3-1.[address] [facility] Comment on above: Performed By: #### C BC, HEPATIC, BMP, LIPASE #### [facility] [address] Bilirubin,Indirect 0.3 mg/dL Normal [facility] Comment on above: Performed By: #### C BC, HEPATIC, BMP, LIPASE #### [facility] [address] Bilirubin.indirect [Mass/Vol] 0.10 mg/dL Normal 0.03-0.[address] [facility] Comment on above: Performed By: #### C BC, HEPATIC, BMP, LIPASE #### [facility] [address] Globulin (S) [Mass/Vol] 3.6 g/dL Normal [facility] Comment on above: Performed By: #### C BC, HEPATIC, BMP, LIPASE #### [facility] [address] [place] [id number] [facility] Protein [Mass/Vol] 8.3 g/dL Normal 6.4-8.9 [facility] Comment on above: Performed By: #### C BC, HEPATIC, BMP, LIPASE #### [facility] [address] Lipaseon 10-01-2022 Lipase [Catalytic activity/Vol] 22.0 U/L Normal 11.0-82.[address] [facility] Comment on above: Result Comment: PERF ORMED BY: [place] [address] PATHOLOGIST TURN OUT WORKER ERICK ACEVEDO M.D. Performed By: #### C BC, HEPATIC, BMP, LIPASE #### [facility] [address] Coding Summaryon 09-24-2022 Coding Summary HTMLBase 64 [id number] UXlGBgAldqWwAV1ovXEw ZXJu IC8+VN8eJEMlDpttaJGd i4O0gTK2E12vfi0fAQtn pCM5MZRrNqXrrnxgd9ma cSt4BTlvTgieRfCs FRQtzT44PMS1kX97Fz78 hRAnsDEyw9adfQn6DlPj JBTsHVP9xNxiRJqoq0Lu BPGbR95jjGXja5D1 IGNvbGxhcHNlOyBlbXB0 lA5mGTlmdrrei5twgzlu Ifc8cu90eGFio6U3wJB5 Q0WitzN9BVIjmSXr GyzefJHQnW9tvchnt9ql bqjeUpJgHOFjLBd8LCq6 ZTIpjPzxSkDtRS56NVN9 SSShyvZsI7UaHNTa eRisHaL3t3W1Jg4TF1NT UhjgR8HTQPWDDAavrFP+ DU45ok21Y8VkMetgJgz3 TIPeMMV2iCD9lA1k UXQlZSpku8Z4cDP4P0Pw ylDoby1op3seZNHeVIln U60qvUUfi1W5PPGooPD4 GJRjvSmfWoNrgU47 Oyc+LDPlzUiub8EbGnyj q8xzs9axrXl8GahrNVOj tbNgtZxmPNT2c8QhXt2w INIkzTF8vFO7rO6o NdOkPcB0VKxiZ202MpVr yUYyFbhpA69zD3SxpJW+ FNYhZvf5OXRrwUgcOZ0m E9NoXMQwsfusmWDd kBziGA1zBXQynuhhGXMx kX8aMBVmD0k1FpSsPhX7 TDjvY2FaAGDiwxiwOk68 kG5kIbGlFhK1YIvp Q2FkghP2EMYnyHBwOVea HYB7D14vp1N7XCVjHRGi CHE0lUY3aM4grNpoxkpa bGVmdDsgdmVydGlj IYdwAVsqB955SVBuuDks PkNvZGluZyBEYXRlOiAg MDcvMTQvMjAyMzwvdGQ+ WONnBDN9xMxdDWMz mQHgVBwkMs2wtLwpsHpd MJ2yBZUnqvylGKAarP9g HMYltFDoaApcWJ5nJVSi muelc801SfJjLUU6 BPIteYZwC2WdxX1iZaNm EIDcQLHbF8KxdHYeUVre T373PCbmHvJ1CDTwpoAl P0BvBFSxuVwhDgM2 m1T3Wn2Ek4XfxhnlK0Lv fOPfFbEjQvcpGOi8Y9Af PjwvdHI+FX79CPRcBD48 JYg1AXM8gEamNJcw ORFfO1HbeL3hSxPyLFTq ZGRkOyc+PHRhYmxlIHdp ZHRoPScxMDAlJyBzdHls PA8ySw0dCMCpVLEz uMrbfWWhWzPtx8ctTHUu VTyyXF8rsNudV8SedMM5 AFQna3i6Gr76L41jR0Lq dXA+VMEpnJD7cNV2 fA3jRyUvTrQ3HJgqQ152 TpJlsMPoHumkg5nzd8zg oXd4PlY6DEWbyqQeqKmg LZR1w5GtVx62Z89m IHdpZHRoPSIxNSUiIHZh fXowxq4dbG9mOp8+PGNv fVO7eEG6lL8iIoKnVkB3 IRkmW633SoVmlUTw Jbfpe0rsc9kwcCr3GcFu PJZhjmHinAfyROZ0l8Ar Jh35V2AfzPezi7HwIuo4 bq21sKEfr5G4fYE5 G2BlMAHefnmyfAWrwPml AJ2nVQTssupzBAMbrJ0n TNHgG6z9UtAgHlY7UJpp I3WfkeV9ZXSywRCk LRGsuZJVoR5npmiuk3gf lsvjRyXmEZPsZMs9YXp3 CKVdyJkcScNaDSU1KvP5 KYH2tRQgbA6kuYsy zaawyH2zKop+BWB3vOOw mFBZWT8aUptjdCT+PHRk GVW6lSnuSBcwJSWwyX3s EHUsE8x4JqYsXnU1 JAvdQ7AykwJ6BXFazQIv YZOurPGYmO1tfthgv8hi buesOmJfNJNmDXs6YNq4 LWFsaWduOiBsZWZ0 FfT6HYN8uIHjdJ8huWgz gnwyhI3wErp+QmlydGgg ZTX4CKj4X9VkLgj4JNGf qGfzJU1sbEUpWJra Sd4htPlsuNtuMM6qJHNq yfkos612JkEmo3apLMUm bMRrJQnlZJN3V70pz4C4 CHKdVGOrLEJ7bMN9 nK1smEwffknxkXFagHzy ynLpgGxsKKchQZbpB037 RWYczBvaOhKaPDy4N2Ew Nuu6RJYblNbiMT4s eUYmBOpfLn9rqTyvbUqy QL9gQSKdqjtum854WbSp b2wnBOYkwUEhYAfhUMD1 X65ck2U2MXXpYWWh TDF6eJN7sE8kfUzxwcnl bGVmdDsgdmVydGljYWwt RMrbK145TWHgbRduEbBm mBf8W4WwMiz2BUHd wOycKG0ooZBwTJjdDv1c wFqijDbmTZ4tWXCsdelc e602ArVsp6lcVXZewILg YNuwZUH9H48zg2M8 SZGsJUKcAHW7vQG3qM5r bGlnbjogbGVmdDsgdmVy cLqxQYloQKymI058HHBr cDsnPlBhdGllbnQg FFyvQPu7X3RfUlygiLU+ XY83TEQzDB36eSKyrCOf c7ahaIv1WhWxRGXwXIT9 tGzzBSmgx5CgBTGd C00adRTfq7Y3BFCfsMlo sNCgLtHnoCB7wR3cOBiz ooyjx6gkzxkwVvlje1rj ha36eG97D49nOPpu ZHRoPSIzMCUiIHZhbGln tt8epC1kNc8+PGNvbCB3 dTC7uZ4uMRSbAeG3VBxu U786TzMvcMUgOxmi v6nam6pehRj3XaM2MRNu vtZluGpnNIR5k5SoBp47 Y73gTZjgHMLwTASiQGNa ZBPieScmqh3jnP2m Ii8+EBKwwAP7cBI6tX9s JjVeAhV3UArgX111UlKp pXNyXknmW64kY7WrnUS+ ZBTnSbl3SHYkgCsk LM6tkHZaQBubDq4rEEI9 UaUkHiNtJTcdV6HnONPz cwnkvxivyVG9PHSyOMDh jP02Ek7pxXstIALi zMITiE8cuekop3afvwwo NtNnSDOpETg5GIs2ZUNj kBmfDlNaPER3MkR4UBS8 zCYnhQ9ipGpwvhmf vJ1sW4BhBRHmzbkeDx14 dR3iVkLcMnF5QZkbKrc+ KMXNM1VOHBNoABiKGPRR VI76CF09nVIvf0U7 dNT9W6MwLJOnafiikwhi zUI3ENLzSWTwtJ95zPDk CFrdTm7vb2Y3j490WMPh HZXxdO08Bi5qrYcn DVXohBXUyN8ncddhy4dp bjdhDoHvZRUnHOm1ZBy5 MEWjwOzfSxEdVWY2CqF9 RVS2pKCjbU0evPxr yglmxK9gIdb+MTIvMjgv LJl3VimhrMK+PHRkIHN0 oYckDKrlIDKsaV8yKNDz V2j0WaKeDtM7FWxc V1EvGDTcvlrfRe23hE0l CxJuDpT3TVnlV3RvocW3 ELZzsJThCBinFCY0C95p e5F7DGOuNGAvMHK4 uBP3xA6hkOuckorimQIe dDsgdmVydGljYWwtYWxp Y609MLHmfCtoRvPrBIxj ITEiZW72KY21mOPb f2I8qIC1U1CcVJWvxoqi aykyuTE0GQUgNKApfJ36 gXPyJMjvVr9hv1V4n694 XMLtEEDxdT63By6y bXuxKHRhsYKPfU0rjwij l5wocmkfRiGjMBCcHVu8 SYz6MPGytWozTeRbIXQ3 HgM0IYB5uGWjnX5y pYpdwbwuxM9zCwd+TUFM RTwvdGQ+VHVrYUG7pPkn CSlaVTXpqV9iTXHxX3d1 ZuUpOgJ2WUghC7Qx QUGczhffKz74tG0mFtGr FgY9TFpxX2XfphQ4OCEo hNXcIWwuBVR3N42sj6E5 HACsLPXnABC4xVL7 dE9wnNzqbkwezGLkpRmw zxTvoYabGXhcRUlyC296 MWWxkZtdSgEmOXRsOT1s eTwvdGQ+NH99ix04 D6BuIgihBaj0NBAtFRK2 tVV0dT8fVFLtHIoqd2T0 kUH7Z9IfamVlox2ig2fv AVGyWVcdK08zeCTx r6B6BOJdwOA8LGFfiSdp LnIlgE45Eye+PGNvbGdy v4BoAvtvv7vfl4nskBr3 IjMwJSIgdmFsaWdu OBM9q1NyOt56J81uHZty ZHRoPSIzMCUiIHZhbGln ui8ayY1aOp5+PGNvbCB3 yEM8bX2fCfGnPnC9 NStiA685BvBsgEGwCprh h6gxp1kxtDl8HvGgZSAo faLplYjcUHX9y7VdOm65 D3MhsZdcz5JxZop7 dp61oZCap4X2bJO5P6Lm PTNvpadchLCvgHegHX6k PYCaperhLSQqtT2fPYIm R1o8YiRaBeM0IUio B6ZxqjX2KLWhzQEjKOWh kAHMaU6rfvqcz4lzwvcf IbMvMBHmFBx0LWj4XOCp hRgpRdLhJRX1FlJ8 HCA4pFXfsP2drVbkgevp cJ9eAha+XOh6y6ccuKMd IW0esPN0SS59AV79nAGv d1W8lEY4G5YcYIBd mncovrlmgIM5PIMxVAPf tH34Cl5fgHtcQy5tJSUv STF0RKCdoFOsD8DoeS5d GrMaOTMqEIPmZ2Qw yWTzKHasG969MAxkCpT4 HBOphhOkQ6AlDQGwmJnh ZhB7p6R8Bz9LXN31LA97 LG84eBBbb2H8fYL2 V9JoWQLrvxytorfcmBC4 QMOsBJWpvS41Bs4rpNuy Ze7qDRDvIAF1GGPzrWYv O4FjaM1lTuIcNNTh DGUpG2IfkFChPXddH602 IBqgOmN7PTCeyyKcJ6Gf EUUaxYgiMrV3b3U6Cx0V Oq83JI55ON27gLIn f0F1nCY7Y2EdUZZgyeiv gzdnsDG2PBVyEBJpyL51 Py9noWfrMy6vYCPyYGW2 MRGorRXnF9XwpA5q DkBkFLZdDBSrW5YnqPYp PEadK689LIcpZbZ1IVZw bwOrR7TkJJQjlGgiFwY7 y7A4Pk2RSMclaso4 P4TyIzhkhAW+LD12BQEw KJ71cIYjgIOxm1mkqRf4 VaVfMATkENW8xItxUDgb w1TzBTWqN11ylEIv c2U (more content not included)... Normal [facility] ED Clinical Summaryon 2022 ED Clinical Summary [facility] - Emergency Department [address] [place] [address] [id number] ED Clinical Summary PERSON INFORMATION Name: JESSICA PITTMAN Age: 52 Years Sex: MALE : 1970 MRN: Acct#: Visit Reason: Abdominal pain; ABDOMINAL PAIN Arrival: 09/17/2022 12:55:44 Discharge: 09/17/2022 15:03:00 LOS: 000 02:08 Check In: 09/17/2022 12:55:44 Checkout:09/17/2022 15:03:00 Address: [address] [place] [address] PCP: Provider, None PROVIDER INFORMATION Provider Role Assigned Unassigned Madeleine Kapadia CNP ED PA 09/17/2022 13:04:18 Josep Mazariegos FINAL BLOCK PRESS OPERATOR Nurse 09/17/2022 13:05:46 VITALS INFORMATION Vital Sign [...] iver verbalizes understanding of instructions given Comment: [facility] ED Note-Nursingon 09-17-2022 ED Note-Nursing arrived via private vehicle with c/o abd pain and intermitant nausea since lastnight lbm today. metformin for diabetes. vss. oriented to call light. [facility] ED Patient Summaryon 023 ED Patient Summary [facility] - Emergency Department [address] [place], [place] [id number] PATIENT DISCHARGE INSTRUCTIONS Patient Information Name: JESSICA PITTMAN Age: 52 Years Date of : 1970 Reason For Visit: Abdominal pain; ABDOMINAL PAIN Arrival Time: 09/17/2022 12:55:44 Primary Care Physician: Provider, None Attending Physician: Raphael Moreno MD Comment: Visit Diagnosis: Diagnoses This Visit Abdominal pain ([id number]) Abdominal pain (R10.9) The Pharmacy at [facility] is open Tuesday through Tuesday from [...] alcohol and/or drug addiction problems; contact the [facility] 04/10 Crisis Hotline -Text 8HGDQ to 783321. If you received any narcotics, sedation, or [...] and treatment you received today in the [facility] Emergency Department were for an urgent problem and are not intended as complete care. It is important for you to follow up with a doctor, nurse practitioner, or physician?s volunteer services assistant for ongoing care. If your symptoms [...] so we can reach you if necessary. [facility] Emergency Department has provided you with a complete list of medications post discharge. Please inform your check examiner/provider of your visit and for further instruction on these medications. Any specific questions regarding your chronic medications and dosages should be discussed with your primary care physician(s) and/or pharmacist. New Medications [id number], [address] [facility] [place], [place] [id number], [phone] dicyclomine (dicyclomine 20 mg oral tablet) 1 [...] as fried or sweet foods. These include paraguayan fries, (more content not included)... Normal [facility] POCT Glucose Levelon 023 Glucose [Mass/Vol] 132 mg/dL High 74-118 [facility] Comment on above: Performed By: #### [id number] #### [facility] (DEFAULT) [address] [place] [address] XR Abdomen 2 Viewson 023 XR Abdomen [...] MD 09/17/22 2:06 pm Technologist: Efrem ASKEW [facility] XR foot RT min 3V*on 023 XR foot RT min 3V* [facility] [address] [place] [address] XRay Report Signed Patient: Jessica Pittman MR#: [id number] 91 : 1970 Acct:[id number] Age/Sex: 52 / M ADM Date: 04/02/22 Loc: ER Room: Type: [facility] ER Attending Dr: Copies to: Jose Nixon [...] Nicole Jr., D.O.04/03/2022 10:53 AM Dictation Location: [place] [address] Transcribed By: [facility] 04/03/22 1053 Dictated By: Ra Nicole Jr, DO 04/03/22 1052 Signed By: 04/03/22 1053 [facility] Glucose Glucometer (BldC) [M ass/Vol]Ordered By: Miguel Ángel Portillo on 01-23-2022 Glucose [Mass/Vol] 150 mg/dL [facility] Comment on above: Random Glucose Refer ence Range is dependent on time and content of last meal. Glucose of more than 200 mg/dL in a nonstressed, ambulatory subject supports the diagnosis of Diabetes Mellitus. Glucose Poct Glucometerson 1 03-25-2021 Glucose [Mass/Vol] 150 mg/dL Normal [facility] Comment on above: Result Comment: [facility] Glucose Reference Range is dependent on time and content of last meal. Glucose of more than 200 mg/dL in a nonstressed, ambulatory subject supports the diagnosis of Diabetes Mellitus. PERFORMED BY: [facility] [address] [place] [address] PATHOLOGIST TURN OUT WORKER ERICK ACEVEDO M.D. Performed By: #### G LULS #### Point of Care testing , Vital Signs Date Time Vital Sign Value Performing Clinician Rea morelos 01-06-2023 14:14-0400 Body height 195.58 cm [employer] [facility] Work Phone: [facility] 01-06-2023 14:14-0400 Body temperature 97.4 [degF] [employer] [facility] Work Phone: [facility] 01-06-2023 14:14-0400 Body weight 107.1 kg [employer] [facility] Work Phone: [facility] 01-06-2023 14:14-0400 Diastolic blood pressure 64 mm[Hg] [employer] [facility] Work Phone: [facility] 01-06-2023 14:14-0400 Heart rate 65 /min [employer] [facility] Work Phone: [facility] 01-06-2023 14:14-0400 Respiratory rate 14 /min [employer] [facility] Work Phone: [facility] 01-06-2023 14:14-0400 SaO2% (BldA) [Mass fraction] 100 % [employer] [facility] Work Phone: [facility] 01-06-2023 14:14-0400 Systolic blood pressure 132 mm[Hg] [employer] [facility] Work Phone: [facility] 11-26-2022 20:11-0400 Body height 195.58 cm [facility] Work Phone: [facility] 11-26-2022 20:11-0400 Body temperature 98.1 [degF] [facility] Work Phone: [facility] 11-26-2022 20:11-0400 Body weight 109.9 kg [facility] Work Phone: [facility] 11-26-2022 20:11-0400 Diastolic blood pressure 63 mm[Hg] [facility] Work Phone: [facility] 11-26-2022 20:11-0400 Heart rate 82 /min [facility] Work Phone: [facility] 11-26-2022 20:11-0400 Respiratory rate 18 /min [facility] Work Phone: [facility] 11-26-2022 20:11-0400 SaO2% (BldA) [Mass fraction] 100 % [facility] Work Phone: [facility] 11-26-2022 20:11-0400 Systolic blood pressure 117 mm[Hg] [facility] Work Phone: [facility] 09-22-2022 22:03-0400 Body height 195.58 cm [facility] Work Phone: [facility] 09-22-2022 22:03-0400 Body temperature 97.8 [degF] [facility] Work Phone: [facility] 09-22-2022 22:03-0400 Body weight 105.8 kg [facility] Work Phone: [facility] 09-22-2022 22:03-0400 Diastolic blood pressure 72 mm[Hg] [facility] Work Phone: [facility] 09-22-2022 22:03-0400 Heart rate 80 /min [facility] Work Phone: [facility] 09-22-2022 22:03-0400 Respiratory rate 18 /min [facility] Work Phone: [facility] 09-22-2022 22:03-0400 SaO2% (BldA) [Mass fraction] 100 % [facility] Work Phone: [facility] 09-22-2022 22:03-0400 Systolic blood pressure 133 mm[Hg] [facility] Work Phone: [facility] 04-13-2022 15:02-0500 Body height 195.58 cm TOLL TICKET CLERK Miguel Ángel Lindsey Work Phone: [facility] 04-13-2022 15:02-0500 Body temperature 98.2 [degF] TOLL TICKET CLERK Miguel Ángel Lindsey Work Phone: [facility] 04-13-2022 15:02-0500 Body weight 102.05 kg TOLL TICKET CLERK Miguel Ángel Lindsey Work Phone: [facility] 04-13-2022 15:02-0500 Diastolic blood pressure 70 mm[Hg] TOLL TICKET CLERK Miguel Ángel Lindsey Work Phone: [facility] 04-13-2022 15:02-0500 Heart rate 85 /min TOLL TICKET CLERK Miguel Ángel Lindsey Work Phone: [facility] 04-13-2022 15:02-0500 Respiratory rate 18 /min TOLL TICKET CLERK Miguel Ángel Lindsey Work Phone: [facility] 04-13-2022 15:02-0500 SaO2% (BldA) [Mass fraction] 100 % TOLL TICKET CLERK Miguel Ángel Lindsey Work Phone: [facility] 04-13-2022 15:02-0500 Systolic blood pressure 107 mm[Hg] TOLL TICKET CLERK Miguel Ángel Lindsey Work Phone: [facility] 04-03-2022 00:00-0500 Body height 195.58 cm TOLL TICKET CLERK Miguel Ángel Lindsey Work Phone: [facility] 04-03-2022 00:00-0500 Body temperature 97.6 [degF] TOLL TICKET CLERK Miguel Ángel Lindsey Work Phone: [facility] 04-03-2022 00:00-0500 Body weight 102.05 kg TOLL TICKET CLERK Miguel Ángel Lindsey Work Phone: [facility] 04-03-2022 00:00-0500 Diastolic blood pressure 78 mm[Hg] TOLL TICKET CLERK Miguel Ángel Lindsey Work Phone: [facility] 04-03-2022 00:00-0500 Heart rate 81 /min TOLL TICKET CLERK Miguel Ángel Lindsey Work Phone: [facility] 04-03-2022 00:00-0500 Respiratory rate 18 /min TOLL TICKET CLERK Miguel Ángel Lindsey Work Phone: [facility] 04-03-2022 00:00-0500 SaO2% (BldA) [Mass fraction] 99 % TOLL TICKET CLERK Miguel Ángel Lindsey Work Phone: [facility] 04-03-2022 00:00-0500 Systolic blood pressure 130 mm[Hg] TOLL TICKET CLERK Miguel Ángel Lindsey Work Phone: [facility] 01-23-2022 08:55-0500 Body temperature 97.9 [degF] TOLL TICKET CLERK Miguel Ángel Lindsey Work Phone: [facility] 01-23-2022 08:55-0500 Diastolic blood pressure 74 mm[Hg] TOLL TICKET CLERK Miguel Ángel Lindsey Work Phone: [facility] 01-23-2022 08:55-0500 Heart rate 77 /min TOLL TICKET CLERK Miguel Ángel Lindsey Work Phone: [facility] 01-23-2022 08:55-0500 Respiratory rate 18 /min TOLL TICKET CLERK Miguel Ángel Portillo Work Phone: [facility] 01-23-2022 08:55-0500 SaO2% (BldA) [Mass fraction] 100 % TOLL TICKET CLERK Miguel Ángel Portillo Work Phone: [facility] 01-23-2022 08:55-0500 Systolic blood pressure 118 mm[Hg] TOLL TICKET CLERK Miguel Ángel Portillo Work Phone: [facility] 01-23-2022 08:53-0500 Body height 195.58 cm TOLL TICKET CLERK Miguel Ángel Portillo Work Phone: [facility] 01-23-2022 08:53-0500 Body weight 104 kg TOLL TICKET CLERK Miguel Ángel Portillo Work Phone: [facility] Encounters Encounter Date Encounter Type Care Provider Facility Start: 01-06-2023 End: 01-06-2023 Emergency department patient visit Helena Bhatti Facility:[facility] Start: 01-06-2023 End: 01-06-2023 Emergency department patient visit [facility] Work Phone: [facility] Work Phone: Start: 11-26-2022 End: 11-27-2022 Emergency department patient visit [facility] Facility:[facility] Start: 11-26-2022 End: 11-26-2022 Emergency department patient visit [facility] Work Phone: [facility] Work Phone: Start: 10-06-2022 End: 10-06-2022 Emergency department patient visit Miguel Ángel Lindsey Facility:[facility] Start: 10-01-2022 End: 10-01-2022 Emergency department patient visit Jose Nixon Facility:[facility] Start: 09-22-2022 End: 09-23-2022 Emergency department patient visit [facility] Facility:[facility] Start: 09-22-2022 End: 09-22-2022 Emergency department patient visit [facility] Work Phone: [facility] Work Phone: Start: 09-17-2022 End: 09-17-2022 Emergency department patient visit None Provider Facility:[facility] Start: 04-13-2022 End: 04-13-2022 [facility] Start: 04-13-2022 End: 04-13-2022 Emergency department patient visit FRANCO Portillo Work Phone: [facility] Work Phone: Start: 04-03-2022 End: 04-03-2022 [facility] Start: 04-02-2022 End: 04-03-2022 Emergency department patient visit FRANCO Portillo Work Phone: [facility] Work Phone: Start: 01-23-2022 End: 01-23-2022 [facility] Start: 01-23-2022 End: 01-23-2022 Emergency department patient visit FRANCO Portillo Work Phone: [facility] Procedures Date Procedure Procedure Detail Performing Clinician Start: 04-03-2022 X-ray of right foot APR N Miguel Ángel Portillo Work Phone: Plan of Treatment Date Care Activity Detail Author Start: 01-06-2023 Plain chest X-ray XR chest 2V* [facility] Start: 01-06-2023 XR Chest 2 Views [facility] Start: 04-03-2022 X-ray of right foot XR foot RT min 3 V* [facility] Start: 04-03-2022 XR Foot - right GE [address] [facility] Patient Education [facility] Work Phone: Patient referral [facility] Work Phone: Payers Date Payer Category Payer Private Health Insurance [id number] 2022 Private Health Insurance [id number] 2022 Self-pay [id number] 1970 Unknown [id number] 18 Unknown Regular Auto/Liability [id number] Unknown Insurance No Card [id number] Unknown [id number] 31 Unknown [id number] 31 Unknown [id number] 31 Unknown [id number] 31 Unknown [id number] 2.16.840.1.790830.3.579.2.5 31 Unknown [id number] 2.16.840.1.105185.3.579.2.5 31 Unknown [id number] 2.16.840.1.166553.3.579.2.5 31 Unknown [id number] 2.16.840.1.993569.3.579.2.5 31 Social History Date Type Detail Facility Start: 01-23-2022 End: 01-06-2023 Tobacco smoking status NHIS Never smoked tobacco (finding) [facility] Start: 1970 Sex Assigned At Male [facility] Clinical Note 09-17-2022 Note Date & [...] as fried or sweet foods. These include paraguayan fries, hamburgers, cookies, candies, and soda. ? Drink enough fluid to keep your urine pale yellow. General instructions ? Exercise regularly or as told by your health care provider. Try to do 150 minutes of moderate exercise each week. ? Use the bathroom when you have the urge to go. Do not hold it in. ? Take rliu-ijy-aefvodp and prescription medicines only as told by [...] keep your urine pale yellow. ? Take ljyz-tgn-epgsbdu and prescription medicines only as told by your health care provider. This includes any fiber supplements. This information is not intended to replace advice given to you by your health care provider. Make sure you discuss any questions you have with your health care provider. Document Revised: 01/16/2020 Document Reviewed: 01/16/2020 [employer] Patient Education ? 2022 [employer] Abdominal Pain, Adult Pain in the [...] these instructions at home: Medicines ? Take avge-dcj-oplkpoh and prescription medicines only as told by [...] condition for any (more content not included)... [facility] Evaluation note Note Date & Type Note Facility Evaluation note No assessment information availa ble [facility] Work Phone: Hospital Discharge instructions Note Date & Type Note Facility Hospital Discharge instructions Additional Instructions Stop the gabapentin(Neurontin) if you feel the Lyrica prescribed today. You must follow-up with health department next week for further evaluation and treatment. [facility] Work Phone: Hospital Discharge instructions Note Date & Type Note Facility Hospital Discharge instructions Additional Instructions If your symptoms return/worsen or you develop any further concerns or symptoms please see your doctor or return to the emergency department immediately. [facility] Work Phone: Hospital Discharge instructions Note Date & Type Note Facility Hospital Discharge instructions Additional Instructions Rest as needed Increase oral fluids May take koxl-exc-usuyhua Mucinex or Coricidin for symptoms May do warm salt water gargles throat lozenges cough drops Follow-up with family doctor as needed Return to the ER for high fever difficulty breathing chest pain or any other concerns [facility] Work Phone: Chief Complaint and Reason for [...] Ángel Portillo APRN Emergency Provider [facility] Active Team Status: Active Member Role Status Dates [facility] Active Team Status: Inactive Member Role Status Dates [facility] Primary Care Provider Active Jose Nixon , Emergency Provider Active Team Status: Inactive Member Role Status Dates [facility] Active Miguel Ángel Portillo APRN Emergency Provider Active Team Status: Inactive Member Role Status Dates [facility] Active Preston Pike DO Emergency Provider Active Team Status: Inactive Member Role Status Dates [facility] Active Ivan Aleman PA-C Emergency Provider Active Team Status: Inactive Member Role Status Dates [place] [facility] Primary Care Provider Active Helena Bhatti , REVIEW[employer] SALES- Emergency Provider Active Goals (unrecognized section and [...] content) DATE CREATED AUTHOR 09/25/2022 [facility] DATE CREATED AUTHOR AUTHOR'S ORGANIZ ATION 01/19/2023 [facility] FOR RECORDS PERTAINING TO PATIENTS WHO ARE [...] BE BASED ON THE PRIMARY CLINICAL RECORDS. [email or web address] provides no warranty or guarantee of the accuracy or completeness of information in this document.
== END 2023-03-28 15:32 | disposition home or self-care (01) ==
LOC: WC 15:31
PROVIDERS: Visit Provider Physician Assistant
DX: E11.621 Type 2 diabetes mellitus with foot ulcer (principal); L97.415 Non-pressure chronic ulcer of right heel and midfoot with muscle involvement without evidence of necrosis
CPT/HCPCS: 11042; 29445

== ENCOUNTER 2023-04-05 11:04 | Outpatient (OUT) | payer OTHER, SELFPAY ==
--- OUTSIDE RECORDS SUMMARY | 2023-04-05 11:08 | XMS_ITS | CCD ---
Author Name Unknown Address [address] [place] [address] Organization [facility] Care Team Providers Care Weasand Trimmer Name Role Phone FRANCO Portillo Emergency Provider [facility], [facility] Primary Care Provider DO Jose Nixon Emergency Provider [facility], [facility] Primary Care Provider [phone] DO Preston Pike Emergency Provider Provider, None Primary Care Unavailable Madeleine Kapadia Attending Unavailable Madeleine Kapadia Admitting Unavailable [facility] Primary Care Provider [phone] KELSIE Aleman Emergency Provider [facility] Helena Luke Emergency Provider [facility], [facility] Primary Care Unavailable Ivan Aleman Admitting Unavailable Ivan Aleman Attending Unavailable Helena Bhatti Attending Unavailable [facility], [facility] Primary Care Unavailable Lola Bhattier E Admitting Unavailable [facility], [facility] Primary Care Unavailable Preston Pike Admitting Unavailable Preston Pike Attending Unavailable [facility], [facility] Primary Care Unavailable Miguel Ángel Portillo Admitting Unavailable Miguel Ángel Portillo Attending Unavailable [facility], [facility] Primary Care Unavailable Jose Nixon Admitting Unavailable Jose Nixon Attending Unavailable [facility], [facility] Primary Care Unavailable Miguel Ángel Portillo Admitting Unavailable Miguel Ángel Portillo Attending Unavailable Tiffani, Jose A Admitting Unavailable KeisterJose Attending Unavailable [facility], [facility] Primary Care Unavailable Miguel Ángel Portillo Admitting Unavailable Miguel Ángel Portillo Attending [facility] Primary Care Unavailable Allergies Allergy Classification Reported Allergen(s) Allergy Type Date of Onset Reaction(s) Facility (1 source) No Known Medication Allergies; Translations: [No Known Medication Allergies] Propensity to adverse reactions to drug (disorder) [facility] Repository Medications Current Medications Medication Drug Class(es) [...] XR chest 2V*on 01-06-2023 XR chest 2V* [facility] [place] [address] XRay Report Signed Patient: Jessica Pittman MR#: [id number] 91 : 1970 Acct:[id number] Age/Sex: 52 / M ADM Date: 01/06/23 Loc: ER Room: Type: [facility] ER Attending Dr: Copies to: LUTHER Holm Ordering Provider: LUTHER Holm Date of Service: 01/06/23 XR/XR chest 2V*: Upper Respiratory Infection PA AND LATERAL CHEST: CLINICAL HISTORY: Body aches, chills and productive cough and diarrhea COMPARISON: 10/29/2006 The nodular asymmetry at the right lower lung is not obvious on the comparison chest x-ray though is seen on chemistry instructor view from an abdominal CT from December 30, 20192013. There is no focal parenchymal consolidation, effusion or pneumothorax. The cardiac, hilar and mediastinal silhouettes are within normal limits. There is no vascular congestion. The visualized bony thorax is intact. Endplate spurring is present. XR/XR chest 2V* IMPRESSION: NO ACUTE CARDIOPULMONARY ABNORMALITY. Impression dictated by: Amy Quiles M.D.01/06/2023 3:05 PM Dictation Location: [place] [address] Transcribed By: [facility] 01/06/23 1505 Dictated By: Amy Quiles MD 01/06/23 1502 Signed By: 01/06/23 1505 Normal [facility] Complete Blood Count Auto Di ffon 10-06-2022 Basophils (Bld) [#/Vol] 0.0 10*3/uL Normal 0.0-0.2 [facility] Comment on above: Performed By: #### H EPATIC, LIPASE, CBC, ESR, CMP ####[address] Basophils/100 WBC (Bld) 0.7 % Normal . [facility] Comment on above: Performed By: #### H EPATIC, LIPASE, CBC, ESR, CMP ####[address] Eosinophils (Bld) [#/Vol] 0.2 10*3/uL Normal 0.0-0.45 [facility] Comment on above: Performed By: #### H EPATIC, LIPASE, CBC, ESR, CMP ####[address] Eosinophils/100 WBC (Bld) 3.2 % Normal . [facility] Comment on above: Performed By: #### H EPATIC, LIPASE, CBC, ESR, CMP ####[address] Erythrocyte distribution width (RBC) [Ratio] 12.8 % Normal 12.0-14.8 [facility] Comment on above: Performed By: #### H EPATIC, LIPASE, CBC, ESR, CMP ####[address] Hematocrit (Bld) [Volume fraction] 38.9 % Normal 38.8-50.0 [facility] Comment on above: Performed By: #### H EPATIC, LIPASE, CBC, ESR, CMP ####[address] Hemoglobin (Bld) [Mass/Vol] 13.2 g/dL Normal 13.0-17.0 [facility] Comment on above: Performed By: #### H EPATIC, LIPASE, CBC, ESR, CMP ####[address] Lymphocytes (Bld) [#/Vol] 2.3 10*3/uL Normal 1.00-4.8 [facility] Comment on above: Performed By: #### H EPATIC, LIPASE, CBC, ESR, CMP ####[address] Lymphocytes/100 WBC (Bld) 35.1 % Normal . [facility] Comment on above: Performed By: #### H EPATIC, LIPASE, CBC, ESR, CMP ####[address] MCH (RBC) [Entitic mass] 30.2 pg Normal 27.5-35.2 [facility] Comment on above: Performed By: #### H EPATIC, LIPASE, CBC, ESR, CMP ####[address] MCV (RBC) [Entitic vol] 89.2 fL Normal 83.5-101 [facility] Comment on above: Performed By: #### H EPATIC, LIPASE, CBC, ESR, CMP ####[address] Mean Corpuscular HGB Conc 33.9 g/dL Normal 32.5-35.6 [facility] Comment on above: Performed By: #### H EPATIC, LIPASE, CBC, ESR, CMP ####[address] Monocytes (Bld) [#/Vol] 0.6 10*3/uL Normal 0.0-0.8 [facility] Comment on above: Performed By: #### H EPATIC, LIPASE, CBC, ESR, CMP ####[facility] [address] Monocytes/100 WBC (Bld) 16.18 % Normal 0.00-20.00 [facility] Comment on above: Performed By: #### H EPATIC, LIPASE, CBC, ESR, CMP ####[address] Monocytes/100 WBC (Bld) 8.7 % Normal . [facility] Comment on above: Performed By: #### H EPATIC, LIPASE, CBC, ESR, CMP ####[address] Neutrophils (Bld) [#/Vol] 3.4 10*3/uL Normal 1.8-7.7 [facility] Comment on above: Performed By: #### H EPATIC, LIPASE, CBC, ESR, CMP ####[address] Neutrophils/100 WBC (Bld) 52.3 % Normal . [facility] Comment on above: Performed By: #### H EPATIC, LIPASE, CBC, ESR, CMP ####[address] NRBC% 0.1 /100{WBC} Normal 0-0.5 [facility] Comment on above: Performed By: #### H EPATIC, LIPASE, CBC, ESR, CMP ####[address] Platelet mean volume (Bld) [Entitic vol] 7.2 fL Normal 6.6-10.1 [facility] Comment on above: Performed By: #### H EPATIC, LIPASE, CBC, ESR, CMP ####[address] Platelets (Bld) [#/Vol] 279 10*3/uL Normal 150-450 [facility] Comment on above: Performed By: #### H EPATIC, LIPASE, CBC, ESR, CMP ####[address] RBC (Bld) [#/Vol] 4.37 10*6/uL Normal 3.90-5.60 [facility] Comment on above: Performed By: #### H EPATIC, LIPASE, CBC, ESR, CMP ####[facility] [address] WBC (Bld) [#/Vol] 6.6 10*3/uL Normal 4.1-10.5 [facility] Comment on above: Performed By: #### H EPATIC, LIPASE, CBC, ESR, CMP ####[facility] Comprehensive Metabolic Pane ofe 10-06-2022 Albumin [Mass/Vol] 4.8 g/dL Normal 3.5-5.7 [facility] Comment on above: Performed By: #### H EPATIC, LIPASE, CBC, ESR, CMP #### [facility] [address] Albumin/Globulin [Mass ratio] 1.5 {ratio} Normal [facility] Comment on above: Performed By: #### H EPATIC, LIPASE, CBC, ESR, CMP #### [facility] [address] ALP [Catalytic activity/Vol] 110 U/L High 34-104 [facility] Comment on above: Performed By: #### H EPATIC, LIPASE, CBC, ESR, CMP #### [facility] [address] ALT [Catalytic activity/Vol] 42 U/L Normal 7-52 [facility] Comment on above: Performed By: #### H EPATIC, LIPASE, CBC, ESR, CMP #### [facility] [address] Anion gap [Moles/Vol] 9.1 mmol/L Normal 6.0-15.0 [facility] Comment on above: Performed By: #### H EPATIC, LIPASE, CBC, ESR, CMP #### [facility] [address] AST [Catalytic activity/Vol] 29 U/L Normal 13-39 [facility] Comment on above: Performed By: #### H EPATIC, LIPASE, CBC, ESR, CMP #### [address] Bilirubin [Mass/Vol] 0.4 mg/dL Normal 0.3-1.0 [facility] Comment on above: Performed By: #### H EPATIC, LIPASE, CBC, ESR, CMP #### [address] Calcium [Mass/Vol] 9.6 mg/dL Normal 8.6-10.3 [facility] Comment on above: Performed By: #### H EPATIC, LIPASE, CBC, ESR, CMP #### [address] Chloride [Moles/Vol] 106 mmol/L Normal 98-107 [facility] Comment on above: Performed By: #### H EPATIC, LIPASE, CBC, ESR, CMP #### [address] CO2 [Moles/Vol] 26.7 mmol/L Normal 21.0-31.0 [facility] Comment on above: Performed By: #### H EPATIC, LIPASE, CBC, ESR, CMP #### [address] Creatinine [Mass/Vol] 1.05 mg/dL Normal 0.70-1.30 [facility] Comment on above: Performed By: #### H EPATIC, LIPASE, CBC, ESR, CMP #### [address] Creatinine Clr Calc Pharmacy 106.07 [facility] Comment on above: Performed By: #### H EPATIC, LIPASE, CBC, ESR, CMP #### [address] GFR/1.73 sq M.predicted MDRD (S/P/Bld) [Vol rate/Area] mL/min/{1.73_m2} [facility] Comment on above: Performed By: #### H EPATIC, LIPASE, CBC, ESR, CMP #### [facility] [address] Globulin (S) [Mass/Vol] 3.2 g/dL Normal [facility] Comment on above: Performed By: #### H EPATIC, LIPASE, CBC, ESR, CMP #### [facility] [address] Glucose [Mass/Vol] 160 mg/dL High 70-100 [facility] Comment on above: Result Comment: [facility] Glucose Reference Range is dependent on time and content of last meal. Glucose of more than 200 mg/dL in a nonstressed, ambulatory subject supports the diagnosis of Diabetes Mellitus. ADA recommended reference range Performed By: #### H EPATIC, LIPASE, CBC, ESR, CMP #### [facility] [address] Potassium [Moles/Vol] 3.8 mmol/L Normal 3.5-5.1 [facility] Comment on above: Performed By: #### H EPATIC, LIPASE, CBC, ESR, CMP #### [facility] [address] Protein [Mass/Vol] 8.0 g/dL Normal 6.4-8.9 [facility] Comment on above: Performed By: #### H EPATIC, LIPASE, CBC, ESR, CMP #### [address] Sodium [Moles/Vol] 138 mmol/L Normal 136-145 [facility] Comment on above: Performed By: #### H EPATIC, LIPASE, CBC, ESR, CMP #### [facility] [address] Urea nitrogen [Mass/Vol] 12 mg/dL Normal 7-25 [facility] Comment on above: Performed By: #### H EPATIC, LIPASE, CBC, ESR, CMP #### [facility] [address] Erythrocyte Sedimentation Ra mahsa 10-06-2022 ESR (Bld) [Velocity] 15 mm/h Normal 0-19 [facility] Comment on above: Result Comment: PERF ORMED BY: [facility] [address] [place] [address] PATHOLOGIST STRATEGIC INSIGHTS LEAD ERICK ACEVEDO M.D. Performed By: #### H EPATIC, LIPASE, CBC, ESR, CMP ####[address] Hepatic Panelon 10-06-2022 Bilirubin,Indirect 0.3 mg/dL Normal [facility] Comment on above: Performed By: #### H EPATIC, LIPASE, CBC, ESR, CMP #### [facility] [address] Bilirubin.indirect [Mass/Vol] 0.10 mg/dL Normal 0.03-0.18 [facility] Comment on above: Performed By: #### H EPATIC, LIPASE, CBC, ESR, CMP #### [address] Lipaseon 10-06-2022 Lipase [Catalytic activity/Vol] 65.0 U/L Normal 11.0-82.0 [facility] Comment on above: Result Comment: PERF ORMED BY: [place] [address] PATHOLOGIST STRATEGIC INSIGHTS LEAD ERICK ACEVEDO M.D. Performed By: #### H EPATIC, LIPASE, CBC, ESR, CMP ####[address] Basic Metabolic Panelon 09-12 Anion gap [Moles/Vol] 9.2 mmol/L Normal 6.0-15.0 [facility] Comment on above: Performed By: #### C BC, HEPATIC, BMP, LIPASE #### [address] Calcium [Mass/Vol] 9.6 mg/dL Normal 8.6-10.3 [facility] Comment on above: Performed By: #### C BC, HEPATIC, BMP, LIPASE #### [address] Chloride [Moles/Vol] 105 mmol/L Normal 98-107 [facility] Comment on above: Performed By: #### C BC, HEPATIC, BMP, LIPASE #### [facility] [address] CO2 [Moles/Vol] 27.9 mmol/L Normal 21.0-31.0 [facility] Comment on above: Performed By: #### C BC, HEPATIC, BMP, LIPASE #### [facility] [address] Creatinine [Mass/Vol] 1.17 mg/dL Normal 0.70-1.30 [facility] Comment on above: Performed By: #### C BC, HEPATIC, BMP, LIPASE #### [facility] [address] Creatinine Clr Calc Pharmacy 103.27 [facility] Comment on above: Performed By: #### C BC, HEPATIC, BMP, LIPASE #### [facility] [address] [place] [address] [place] GFR/1.73 sq M.predicted MDRD (S/P/Bld) [Vol rate/Area] mL/min/{1.73_m2} [facility] Comment on above: Performed By: #### C BC, HEPATIC, BMP, LIPASE #### [address] Glucose [Mass/Vol] 140 mg/dL High 70-100 [facility] Comment on above: Result Comment: [place] Glucose Reference Range is dependent on time and content of last meal. Glucose of more than 200 mg/dL in a nonstressed, ambulatory subject supports the diagnosis of Diabetes Mellitus. ADA recommended reference range Performed By: #### C BC, HEPATIC, BMP, LIPASE #### [facility] [address] Potassium [Moles/Vol] 4.1 mmol/L Normal 3.5-5.1 [facility] Comment on above: Performed By: #### C BC, HEPATIC, BMP, LIPASE #### [facility] [address] [place] [address] [place] Sodium [Moles/Vol] 138 mmol/L Normal 136-145 [facility] Comment on above: Performed By: #### C BC, HEPATIC, BMP, LIPASE #### [facility] [address] Urea nitrogen [Mass/Vol] 11 mg/dL Normal 7-25 [facility] Comment on above: Performed By: #### C BC, HEPATIC, BMP, LIPASE #### [facility] [address] abdomen pelvis w conon CT abdomen pelvis w con [facility] [place] [address] [place] [address] CT Scan Report Signed Patient: Jessica Pittman MR#: [id number] 91 : 1970 Acct:[id number] Age/Sex: 52 / M ADM Date: 10/01/22 Loc: ER Room: Type: [facility] ER Attending Dr: Copies to: Jose [...] Teofilo Ulloa M.D.10/01/2022 5:38 PM Dictation Location: [place] [address] Transcribed By: [facility] 10/01/22 173 Dictated By: Teofilo Ulloa II, MD 10/01/22 172 Signed By: 10/01/22 173 Normal [facility] Complete Blood Count Auto Di ffon 10-01-2022 Basophils (Bld) [#/Vol] 0.1 10*3/uL Normal 0.0-0.2 [facility] Comment on above: Result Comment: PERF ORMED BY: [place] [address] PATHOLOGIST STRATEGIC INSIGHTS LEAD ERICK ACEVEDO M.D. Performed By: #### C BC, HEPATIC, BMP, LIPASE #### [address] Basophils/100 WBC (Bld) 0.7 % Normal . [facility] Comment on above: Performed By: #### C BC, HEPATIC, BMP, LIPASE #### [facility] [address] Eosinophils (Bld) [#/Vol] 0.1 10*3/uL Normal 0.0-0.45 [facility] Comment on above: Performed By: #### C BC, HEPATIC, BMP, LIPASE #### [facility] [address] [place] [address] [place] Eosinophils/100 WBC (Bld) 1.2 % Normal . [facility] Comment on above: Performed By: #### C BC, HEPATIC, BMP, LIPASE #### [address] Erythrocyte distribution width (RBC) [Ratio] 12.8 % Normal 12.0-14.8 [facility] Comment on above: Performed By: #### C BC, HEPATIC, BMP, LIPASE #### [address] Hematocrit (Bld) [Volume fraction] 40.4 % Normal 38.8-50.0 [facility] Comment on above: Performed By: #### C BC, HEPATIC, BMP, LIPASE #### [address] Hemoglobin (Bld) [Mass/Vol] 13.4 g/dL Normal 13.0-17.0 [facility] Comment on above: Performed By: #### C BC, HEPATIC, BMP, LIPASE #### [address] Lymphocytes (Bld) [#/Vol] 1.9 10*3/uL Normal 1.00-4.8 [facility] Comment on above: Performed By: #### C BC, HEPATIC, BMP, LIPASE #### [address] Lymphocytes/100 WBC (Bld) 21.4 % Normal . [facility] Comment on above: Performed By: #### C BC, HEPATIC, BMP, LIPASE #### [address] MCH (RBC) [Entitic mass] 29.7 pg Normal 27.5-35.2 [facility] Comment on above: Performed By: #### C BC, HEPATIC, BMP, LIPASE #### [address] MCV (RBC) [Entitic vol] 89.7 fL Normal 83.5-101 [facility] Comment on above: Performed By: #### C BC, HEPATIC, BMP, LIPASE #### [address] Mean Corpuscular HGB Conc 33.1 g/dL Normal 32.5-35.6 [facility] Comment on above: Performed By: #### C BC, HEPATIC, BMP, LIPASE #### [address] [place] [address] [place] Monocytes (Bld) [#/Vol] 0.8 10*3/uL Normal 0.0-0.8 [facility] Comment on above: Performed By: #### C BC, HEPATIC, BMP, LIPASE #### [facility] [address] [place] [address] [place] Monocytes/100 WBC (Bld) 15.24 % Normal 0.00-20.00 [facility] Comment on above: Performed By: #### C BC, HEPATIC, BMP, LIPASE #### [facility] [address] [place] [address] [place] Monocytes/100 WBC (Bld) 9.5 % Normal . [facility] Comment on above: Performed By: #### C BC, HEPATIC, BMP, LIPASE #### [facility] [address] [place] [address] Neutrophils (Bld) [#/Vol] 5.9 10*3/uL Normal 1.8-7.7 [facility] Comment on above: Performed By: #### C BC, HEPATIC, BMP, LIPASE #### [facility] [address] [place] [address] Neutrophils/100 WBC (Bld) 67.2 % Normal . [facility] Comment on above: Performed By: #### C BC, HEPATIC, BMP, LIPASE #### [facility] [address] [place] [address] [place] NRBC% 0.1 /100{WBC} Normal 0-0.5 [facility] Comment on above: Performed By: #### C BC, HEPATIC, BMP, LIPASE #### [facility] [address] [place] [address] [place] Platelet mean volume (Bld) [Entitic vol] 7.1 fL Normal 6.6-10.1 [facility] Comment on above: Performed By: #### C BC, HEPATIC, BMP, LIPASE #### [facility] [address] [place] [address] [place] Platelets (Bld) [#/Vol] 291 10*3/uL Normal 150-450 [facility] Comment on above: Performed By: #### C BC, HEPATIC, BMP, LIPASE #### [facility] [address] RBC (Bld) [#/Vol] 4.51 10*6/uL Normal 3.90-5.60 [facility] Comment on above: Performed By: #### C BC, HEPATIC, BMP, LIPASE #### [facility] [address] WBC (Bld) [#/Vol] 8.8 10*3/uL Normal 4.1-10.5 [facility] Comment on above: Performed By: #### C BC, HEPATIC, BMP, LIPASE #### [facility] [address] Dipstick and Microscopicon 0 10-01-2022 Appearance (U) Clear Normal Clear [facility] Comment on above: Order Comment: Name Collection Type:: Clean-Voided Midstream Performed By: #### A DDONUAPLUS ####[address] Bacteria,Urine None Seen Normal None Seen [facility] Comment on above: Order Comment: Name Collection Type:: Clean-Voided Midstream Performed By: #### A DDONUAPLUS ####[address] Bilirubin,Urine Negative Normal Negative [facility] Comment on above: Order Comment: Name Collection Type:: Clean-Voided Midstream Performed By: #### A DDONUAPLUS ####[address] Color (U) Yellow Normal Yellow [facility] Comment on above: Order Comment: Name Collection Type:: Clean-Voided Midstream Performed By: #### A DDONUAPLUS ####[address] Glucose Ql (U) 100 mg/dL High Normal [facility] Comment on above: Order Comment: Name Collection Type:: Clean-Voided Midstream Performed By: #### A DDONUAPLUS ####[address] [place] [address] [place] Hyaline Casts,Urine None Seen Normal 0-8 [facility] Comment on above: Order Comment: Name Collection Type:: Clean-Voided Midstream Performed By: #### A DDONUAPLUS ####[address] [address] [facility] Ketones Ql (U) Negative Normal Negative [facility] Comment on above: Order Comment: Name Collection Type:: Clean-Voided Midstream Performed By: #### A DDONUAPLUS ####[address] [address] [facility] Leukocyte esterase Test strip Ql (U) 2+ High Negative [facility] Comment on above: Order Comment: Name Collection Type:: Clean-Voided Midstream Performed By: #### A DDONUAPLUS ####[address] [address] [facility] Nitrite,Urine Negative Normal Negative [facility] Comment on above: Order Comment: Name Collection Type:: Clean-Voided Midstream Performed By: #### A DDONUAPLUS ####[address] [address] [place] Occult Blood,Urine Negative Normal Negative [facility] Comment on above: Order Comment: Name Collection Type:: Clean-Voided Midstream Result Comment: PERF ORMED BY: [facility] [address] [place] [address] PATHOLOGIST STRATEGIC INSIGHTS LEAD ERICK ACEVEDO M.D. Performed By: #### A DDONUAPLUS ####[address] [address] [place] pH (U) 5.0 [pH] Normal 5.0-9.0 [facility] Comment on above: Order Comment: Name Collection Type:: Clean-Voided Midstream Performed By: #### A DDONUAPLUS ####[address] [address] [place] Protein,Urine Negative Normal Negative [facility] Comment on above: Order Comment: Name Collection Type:: Clean-Voided Midstream Performed By: #### A DDONUAPLUS ####[address] [address] [facility] RBC LM.HPF (Urine sed) [#/Area] 0 /[HPF] Normal 0-4 [facility] Comment on above: Order Comment: Name Collection Type:: Clean-Voided Midstream Performed By: #### A DDONUAPLUS ####[address] Specificy [place],Urine 1.029 Normal 1.001-1.030 [facility] Comment on above: Order Comment: Name Collection Type:: Clean-Voided Midstream Performed By: #### A DDONUAPLUS ####[address] Squamous Epithelial Cell,Urine None Seen Normal 0-2 [facility] Comment on above: Order Comment: Name Collection Type:: Clean-Voided Midstream Performed By: #### A DDONUAPLUS ####[address] Urobilinogen,Urine Normal Normal Normal [facility] Comment on above: Order Comment: Name Collection Type:: Clean-Voided Midstream Performed By: #### A DDONUAPLUS ####[address] WBC LM.HPF (Urine sed) [#/Area] 0 /[HPF] Normal 0-4 [facility] Comment on above: Order Comment: Name Collection Type:: Clean-Voided Midstream Performed By: #### A DDONUAPLUS ####[address] Yeast,Urine 2+ Critically abnormal None Seen [facility] Comment on above: Order Comment: Name Collection Type:: Clean-Voided Midstream Result Comment: PERF ORMED BY: [facility] [address] [place] [address] PATHOLOGIST STRATEGIC INSIGHTS LEAD ERICK ACEVEDO M.D. Performed By: #### A DDONUAPLUS ####[address] Hepatic Panelon 10-01-2022 Albumin [Mass/Vol] 4.7 g/dL Normal 3.5-5.7 [facility] Comment on above: Performed By: #### C BC, HEPATIC, BMP, LIPASE #### [facility] [address] Albumin/Globulin [Mass ratio] 1.3 {ratio} Normal [facility] Comment on above: Performed By: #### C BC, HEPATIC, BMP, LIPASE #### [facility] [address] ALP [Catalytic activity/Vol] 101 U/L Normal 34-104 [facility] Comment on above: Performed By: #### C BC, HEPATIC, BMP, LIPASE #### [facility] [address] ALT [Catalytic activity/Vol] 31 U/L Normal 7-52 [facility] Comment on above: Performed By: #### C BC, HEPATIC, BMP, LIPASE #### [facility] [address] [place] [address] AST [Catalytic activity/Vol] 23 U/L Normal 13-39 [facility] Comment on above: Performed By: #### C BC, HEPATIC, BMP, LIPASE #### [address] Bilirubin [Mass/Vol] 0.4 mg/dL Normal 0.3-1.0 [facility] Comment on above: Performed By: #### C BC, HEPATIC, BMP, LIPASE #### [facility] [address] Bilirubin,Indirect 0.3 mg/dL Normal [facility] Comment on above: Performed By: #### C BC, HEPATIC, BMP, LIPASE #### [facility] [address] Bilirubin.indirect [Mass/Vol] 0.10 mg/dL Normal 0.03-0.18 [facility] Comment on above: Performed By: #### C BC, HEPATIC, BMP, LIPASE #### [facility] [address] Globulin (S) [Mass/Vol] 3.6 g/dL Normal [facility] Comment on above: Performed By: #### C BC, HEPATIC, BMP, LIPASE #### [facility] [address] [place] [id number] [facility] Protein [Mass/Vol] 8.3 g/dL Normal 6.4-8.9 [facility] Comment on above: Performed By: #### C BC, HEPATIC, BMP, LIPASE #### [facility] [address] Lipaseon 10-01-2022 Lipase [Catalytic activity/Vol] 22.0 U/L Normal 11.0-82.0 [facility] Comment on above: Result Comment: PERF ORMED BY: [place] [address] PATHOLOGIST STRATEGIC INSIGHTS LEAD ERICK ACEVEDO M.D. Performed By: #### C BC, HEPATIC, BMP, LIPASE #### [facility] [address] Coding Summaryon 09-24-2022 Coding Summary HTMLBase 64 JpmphktbMUr8tUr+PGhl YWQ+SI5SQFPnY82sgHOd wZ8aG9WRHEaDMwjoONUA WJaABcRiofBnYF1qxCZq ZXJu IC8+KF2rNKMeAkgjsHIg m6M6mOQ9M18ejp8wHAxs tQI4UBTiOdOwrazlz9da tCr4FDahKmyeQaEm ALEcgO85ION8aF58Sc89 eKKywTGfp0ejsSc9AgSe OFHsNAX4kGwjQLicb9Ql UWEuW55npWRtd7E1 IGNvbGxhcHNlOyBlbXB0 lO8xZHjrekqpd0sbyqra Acv0ua92uBOnk2S5yWJ9 K2QxtrS4KBRirSCb SrtorOJTrK5lbydem7ol ubflXrHtRLWvFBv5JHf7 HWYgaDgbFdGbOZ04ZOC3 GKUfinXbN4FbXVBp gBrnIjS1w9Q3Ea9ZF3TI FqhkR3PERAFNBOouiVH+ TU14rp50R6UvWaveQma5 BTLbEGW9bBT6zH1t TJOyOQwun1S4vMY7P4Td usJmrx0hk0gzOEMoVIqy U31nbVJzy2E7SGOvfXU8 TOBatVpsXjMpjX44 Oyc+ZLUoxLcdy1UjNxlq e7fok1ctpNb9KrmfDADm upBjcNlrOKA6a6DqXe3n CCZiuKZ4dGJ9lK1h OoBdZyR0WZmeT740MwZm rUIaZokaX41hN1NxxOA+ COQbSfe6TIDhxPjeBA8v G1JiPRNublupsZSs oCzkFU2zXOYxkvxtHAFo jO0jJVYxW1u5UvNyFlO4 XGubU6XyLUVgqnrbPt91 oL2nBpXsNsI9EQwu Y6IlnvP1EEWriDSxXCnc QHC1P60au0D6CTXdGRKm KMW0oNG5vE6diSvgadwh bGVmdDsgdmVydGlj ACkhNLvhD156XLCocVov PkNvZGluZyBEYXRlOiAg MDcvMTQvMjAyMzwvdGQ+ PIPfWRP1oWwuNQXt kEFuQOyvTr4eiDaddZyj DJ8rNTKqhzgxTWIehD2i KRPhkNHyjOatKB0kFJKf jevml484BlBcBXA5 TJTehPTmS7XypH4tUkGs TZDhFWDeF4OsdMGpGJkg U548DAqmAlF4AOFaxqKk X1YsQBLpqAjnJjT9 b6V6Ye9Bv1ZsluudM1Og lLMuMiHtRibrEAk2V4Cy PjwvdHI+GY45ZRHyGT49 RMx9UYP2nHkvDGei PNCdZ9EtqO4jLdSkWHLn ZGRkOyc+PHRhYmxlIHdp ZHRoPScxMDAlJyBzdHls IF7nDe1wRQRyMMJv bApmwOLcKsIqu4ecWDWx ZKfxTR0jnEuhF1VwtXQ8 UBUjz6q8Pz12M77zD3Np dXA+XKRyhSG8wBX0 dC3uSoOyZhX3QWmbE537 JwLkvKYfRadwk9len5yr zSi4WkA9MFTrpbFseWge QYC0x9ZsUg51T71r IHdpZHRoPSIxNSUiIHZh fTxpkh9joH1yKc1+PGNv tUV1tCH3tD0pVbQyVcO2 INzgR832VxQdeWLo Sapsw0tii1xjwAq7ApXo YFXxtyXcjElqZHS9i7Cb Qc12G8LtpTacg7NkTnb7 ci90xBRfi6K5vCQ0 B9WeZASdnxqdnTRaeSnv YP6gTAMrqcddKDWspB3q ZFMrH2w7TxZlOcN2ECxy P9ShooG7CGUydYXj NXAbrEGHiP0lxybda5ls sdcyGjZzWSFsNBz0LYt5 CPKdcFqkKyExNFC6TjS3 BCP5nNSemS3gmMcj cijzlM0bPoc+CYO3wMBx cSKUXZ8mJkmaxCD+PHRk PLI0xSxeRUbfPQOfzW5v XQVrV0o3HqCdPyS4 PDuaD5QdyvP2AFRitAJp ZZMucABZtQ3jmqjir1tw gehcOzDhNEUjMLo2ATa5 LWFsaWduOiBsZWZ0 HdP4CEF0qBRdoU9liBhs jmcslH7tXna+QmlydGgg ULW0PHk8X8SwHtq8SCDh dCjmNP2ikRKsZKsw Bd4wvGadxKzyHC5jNFQl khpmg864KsFwk6suHRVq gJNnPIjbMHF5O33gd3S1 VEMwOTGfZBC7mOH2 bA3veQmduazksBVlvWww hbEkvBxfIOkpMLecN876 ESAjrWxwXcKmRCp2A9Lx Rgn1SVHnxCfpSQ0g wXXfYDiiUn5qnRcqbTsv BU6lCNFdgwbcn357YvRe x9svUGMpiABcKJoyKNK1 G57ff3C5BXNvXOUt QUN8jHI7oB9fgIcxbnmw bGVmdDsgdmVydGljYWwt NIrhH339BOPxaGzcFpEs xQt8M7UiTsx7ASOy hFhlSK4qrSIqXPknOh0w nCsucErtLQ4uPWQxbpwi u658YeAny3brCZIhrMRr MAwrIIS0A26bj7T8 DOCaUAKeKLW0xWK2gK4o bGlnbjogbGVmdDsgdmVy xLpyORaaKQtuC325KNKk cDsnPlBhdGllbnQg TBhfLUt4N3QePskamDI+ XX81FWXaCE46xFVoaOQc y7moxIm7SjZxMIIyGNB2 qZkqKFrni4LzHNEp X73eqSEab8F3YZIthLqr gMOwLaKhfQU9qP9bKRqc zrgoh0sdyerjThmkv4ah ez60nV78K00vORth ZHRoPSIzMCUiIHZhbGln rj5yxW2eHl3+PGNvbCB3 yPN6xF4bSFAvGoD2HPfc C565ZeHuePTtMeeu j2kwa2pimLh1HkI7MKFc qbFdzWazMJC8o4VoJd84 M63cFBkrDYDgQJKrCRCe DQHcjCgzti4opF1j Ii8+LVYxbYF7dTC6bV9e WnUtKzW8BLwmB800JhJk pOUwRgioZ15uS1ZwmIM+ JPAxSss1PJJfgAbp AP0nbPSfUHosRm9oZIL9 ZzElNhTaOSpfX6TwTQGz rumlfqbmdVF1UTVrDPBc lF31Ey5pkWtwOJGy cHOJrU7lkyrja9xambmq HaPsXSCdPQz1HVx0MMMj vErlYwPvYBL8JtG4GFY6 cOYniQ5osGcxaslo qZ1tG7YlBNFlikdkPd29 sE8tEbTaQjT0DLuuMal+ GYGFX2ORFHAyNEjSXDVF DI26NF09hXRag1P2 tLB3F6MaWJGokygwglcn qCC6JCSwCHVaiV37kJJa GFimQw6ud6E0x294YGQx RWZupO29Mh1glJns BCZynFNTwS9tnaqea4gg bgedVxTzQGPeHNp6JUu0 XJItpBsrMfKiCNN6PfS4 ZNC9jVYqhF9ysDcn oamvmG5cOoz+MTIvMjgv TPm8GuulyPV+PHRkIHN0 mEgcXEkqXJAzpD8cTERn Q3s7IwQfCoO5JXtw C3AePMWamuhvXr91iH6x CsFsEwV0ESkvB0VkedK6 NLWocITsGXjbRFJ9A22m s8M0FCGqWDUvWME1 pRD2sU1ztWudgvsyxDSu dDsgdmVydGljYWwtYWxp T130MNZkzYqpQxZlFZwz SNEqSJ77XI73vSUv k9O5zKE9A3BtSKOtpmad uksmhUC3CNNhHHMaaW75 aWHwIFscJu7fk4C0c687 IYDtYPGepQ99Tt9y oIivRBIdwRVTnE4rlvzq g9iybfbeBuSiBMXzHAi1 TJm7ZZEuuBegVoHzFSP8 AnG0YMC9tRIqqD0e lJyeplkoyX4hGsp+TUFM RTwvdGQ+KBZgHDS6cKdl SAmbEANlsN0vKSGzC9l1 YwXvSgQ3GNknL1Ad KKMheqppBr84wO6sNxXe KgG3QLxpP6FfrgD0ZOPm bHWfHNkbZWI1T22ni8T1 HOHdMPTeZPS3vIH2 qO0jaRfqugexqTRptOro zlKsxNhdNUknBBfsC086 ZKPurVxlYbXzHXRvVD0x eTwvdGQ+RO46en62 I8KaBhwuKdu8EZClDCE1 oHE3qE5uEZZrSAefb5C5 uZT6Y7PoyqLpap6qt4tf AVHlBWbfP14odZUm y7G9YYZrcJO5RJZinHun UeLbfL33Aje+PGNvbGdy y4AjLpngh3zjo6pcuPr1 IjMwJSIgdmFsaWdu MXO9p1IkHw05M14uJQen ZHRoPSIzMCUiIHZhbGln qy9eqY0mAa8+PGNvbCB3 dVE6jW3hSbByJkG5 CRvnG226OhOsySUdJrlp h0pgr3mtyVa1YbFoNZHr daJmcVxmWHE1d8AyHf63 S2CyoGipj3WqYfp1 ld19yPEqi1I4fXX3B3Ml HDBpnphnlZWvyKkvPO5b RBIyjmagMRGscQ0iLFAl U1t1FnYiIlN9ZCdz I9XhheB0KFPsnAPoAEGu uUQHlZ0hofhuu2jaohik WdFiPLSwPQn3YLo2BPYb tKncBlNrQDQ7ImQ8 LMB6wHZpiD6maWspkjne pU0qQmh+WTv7b1ryxZUx CT4qpBC0QJ51QP73yAFk r9Y8yEC5H4HdBLAn jwbrjsznbMO5UWZrZPLz gF43Ir3kwPpgOw3vZKJh YHE2JUQljPHgO0FeaK7y ScElQGLkTEOqX6Mv qDRmKOpxT524IImtAoN3 PMRuwrMdI3GiMCVmtFap DsY5d6U2Ox6ARN19JB38 NM21uTGav4F8jMC6 X0OxCGCewucjotbbjVR0 FVGiDNAhiA36Qv5zhKou Ii1eNUAyWNK9VIFwcTZb F4XpcC0xVxRpBRYj LYObR4TswGVvSSzfV352 YTrlRuO4EPCfjcZgY2Hl ALPjrYpmMaV3q5U3Io3F Qw20PG59UW63hWNd x0W3hTX8E8AfFWXnpepx whghuOX2BREbAYMocX91 Xt5prCesOl7iQJWcMST8 GOXfqNAxQ8JicJ0u NiXiNPIoLXKaO4CdaANw FTprT472CLnrZqB3KUQn sjGzR7HySJYzqCosLwK9 r4A8Ez2PBOwwksz5 B2EhGhgtdWU+YS32RUUg ZW83hWWrgEGxj8yhhFr5 QfOoICBsSRF1tFudHJjq j3AoRUHiN89edQSx c2U (more content not included)... Normal [facility] ED Clinical Summaryon 2022 ED Clinical Summary [facility] - Emergency Department [address] [place] [address] [id number] ED Clinical Summary PERSON INFORMATION Name: JESSICA PITTMAN Age: 52 Years Sex: MALE : 1970 MRN: Acct#: Visit Reason: Abdominal pain; ABDOMINAL PAIN Arrival: 09/17/2022 12:55:44 Discharge: 09/17/2022 15:03:00 LOS: 000 02:08 Check In: 09/17/2022 12:55:44 Checkout:09/17/2022 15:03:00 Address: [address] [place] [address] PCP: Provider, None PROVIDER INFORMATION Provider Role Assigned Unassigned Madeleine Kapadia CNP ED PA 09/17/2022 13:04:18 Josep Mazariegos RETAIL MANAGEMENT TRAINEE Nurse 09/17/2022 13:05:46 VITALS INFORMATION Vital Sign [...] iver verbalizes understanding of instructions given Comment: [facility] ED Note-Nursingon 09-17-2022 ED Note-Nursing arrived via private vehicle with c/o abd pain and intermitant nausea since lastnight lbm today. metformin for diabetes. vss. oriented to call light. [facility] ED Patient Summaryon 023 ED Patient Summary [facility] - Emergency Department [address] [place], [place] [id number] PATIENT DISCHARGE INSTRUCTIONS Patient Information Name: JESSICA PITTMAN Age: 52 Years Date of : 1970 Reason For Visit: Abdominal pain; ABDOMINAL PAIN Arrival Time: 09/17/2022 12:55:44 Primary Care Physician: Provider, None Attending Physician: Raphael Moreno MD Comment: Visit Diagnosis: Diagnoses This Visit Abdominal pain ([id number]) Abdominal pain (R10.9) The Pharmacy at [facility] is open Tuesday through Tuesday from [...] alcohol and/or drug addiction problems; contact the [facility] 04/10 Crisis Hotline -Text 4JOJW to 205589. If you received any narcotics, sedation, or [...] and treatment you received today in the [facility] Emergency Department were for an urgent problem and are not intended as complete care. It is important for you to follow up with a doctor, nurse practitioner, or physician?s assistant mechanic for ongoing care. If your symptoms become [...] so we can reach you if necessary. [facility] Emergency Department has provided you with a complete list of medications post discharge. Please inform your drill bit sharpener/provider of your visit and for further instruction on these medications. Any specific questions regarding your chronic medications and dosages should be discussed with your primary care physician(s) and/or pharmacist. New Medications [id number], [address] [facility] [place], [place] [id number], [phone] dicyclomine (dicyclomine 20 mg oral tablet) 1 [...] as fried or sweet foods. These include new zealander fries, (more content not included)... Normal [facility] POCT Glucose Levelon 023 Glucose [Mass/Vol] 132 mg/dL High 74-118 [facility] Comment on above: Performed By: #### [id number] #### [facility] (DEFAULT) [address] [place] [address] XR Abdomen 2 Viewson 023 XR Abdomen [...] MD 09/17/22 2:06 pm Technologist: Efrem ASKEW [facility] XR foot RT min 3V*on 023 XR foot RT min 3V* [facility] Main Hardy [address] [place] [address] XRay Report Signed Patient: Jessica Pittman MR#: [id number] 91 : 1970 Acct:[id number] Age/Sex: 52 / M ADM Date: 04/02/22 Loc: ER Room: Type: [facility] ER Attending Dr: Copies to: [...] Nicole Jr., D.O.04/03/2022 10:53 AM Dictation Location: [place] [address] Transcribed By: [facility] 04/03/22 1053 Dictated By: Ra Nicole Jr, DO 04/03/22 1052 Signed By: 04/03/22 1053 [facility] Glucose Glucometer (BldC) [M ass/Vol]Ordered By: Miguel Ángel Portillo on 01-23-2022 Glucose [Mass/Vol] 150 mg/dL [facility] Comment on above: Random Glucose Refer ence Range is dependent on time and content of last meal. Glucose of more than 200 mg/dL in a nonstressed, ambulatory subject supports the diagnosis of Diabetes Mellitus. Glucose Poct Glucometerson 1 03-25-2021 Glucose [Mass/Vol] 150 mg/dL Normal [facility] Comment on above: Result Comment: [facility] Glucose Reference Range is dependent on time and content of last meal. Glucose of more than 200 mg/dL in a nonstressed, ambulatory subject supports the diagnosis of Diabetes Mellitus. PERFORMED BY: [facility] [address] [place] [address] PATHOLOGIST STRATEGIC INSIGHTS LEAD ERICK ACEVEDO M.D. Performed By: #### G LULS #### Point of Care testing , Vital Signs Date Time Vital Sign Value Performing Clinician Rea morelos 01-06-2023 14:14-0400 Body height 195.58 cm [employer] Work Phone: [facility] 01-06-2023 14:14-0400 Body temperature 97.4 [degF] [employer] Work Phone: [facility] 01-06-2023 14:14-0400 Body weight 107.1 kg [employer] Work Phone: [facility] 01-06-2023 14:14-0400 Diastolic blood pressure 64 mm[Hg] [employer] Work Phone: [facility] 01-06-2023 14:14-0400 Heart rate 65 /min [employer] Work Phone: [facility] 01-06-2023 14:14-0400 Respiratory rate 14 /min [employer] Work Phone: [facility] 01-06-2023 14:14-0400 SaO2% (BldA) [Mass fraction] 100 % [employer] Work Phone: [facility] 01-06-2023 14:14-0400 Systolic blood pressure 132 mm[Hg] [employer] Work Phone: [facility] 11-26-2022 20:11-0400 Body height 195.58 cm [facility] Work Phone: [facility] 11-26-2022 20:11-0400 Body temperature 98.1 [degF] [facility] Work Phone: [facility] 11-26-2022 20:11-0400 Body weight 109.9 kg [facility] Work Phone: [facility] 11-26-2022 20:11-0400 Diastolic blood pressure 63 mm[Hg] [facility] Work Phone: [facility] 11-26-2022 20:11-0400 Heart rate 82 /min [facility] Work Phone: [facility] 11-26-2022 20:11-0400 Respiratory rate 18 /min [facility] Work Phone: [facility] 11-26-2022 20:11-0400 SaO2% (BldA) [Mass fraction] 100 % [facility] Work Phone: [facility] 11-26-2022 20:11-0400 Systolic blood pressure 117 mm[Hg] [facility] Work Phone: [facility] 09-22-2022 22:03-0400 Body height 195.58 cm [facility] Work Phone: [facility] 09-22-2022 22:03-0400 Body temperature 97.8 [degF] [facility] Work Phone: [facility] 09-22-2022 22:03-0400 Body weight 105.8 kg [facility] Work Phone: [facility] 09-22-2022 22:03-0400 Diastolic blood pressure 72 mm[Hg] [facility] Work Phone: [facility] 09-22-2022 22:03-0400 Heart rate 80 /min [facility] Work Phone: [facility] 09-22-2022 22:03-0400 Respiratory rate 18 /min [facility] Work Phone: [facility] 09-22-2022 22:03-0400 SaO2% (BldA) [Mass fraction] 100 % [facility] Work Phone: [facility] 09-22-2022 22:03-0400 Systolic blood pressure 133 mm[Hg] [facility] Work Phone: [facility] 04-13-2022 15:02-0500 Body height 195.58 cm [employer]IREL[employer] Miguel Ángel Lindsey Work Phone: [facility] 04-13-2022 15:02-0500 Body temperature 98.2 [degF] [employer] Miguel Ángel Lindsey Work Phone: [facility] 04-13-2022 15:02-0500 Body weight 102.05 kg [employer] Miguel Ángel Lindsey Work Phone: [facility] 04-13-2022 15:02-0500 Diastolic blood pressure 70 mm[Hg] [employer] Miguel Ángel Lindsey Work Phone: [facility] 04-13-2022 15:02-0500 Heart rate 85 /min [employer] Miguel Ángel Lindsey Work Phone: [facility] 04-13-2022 15:02-0500 Respiratory rate 18 /min [employer] Miguel Ángel Lindsey Work Phone: [facility] 04-13-2022 15:02-0500 SaO2% (BldA) [Mass fraction] 100 % [employer] Miguel Ángel Lindsey Work Phone: [facility] 04-13-2022 15:02-0500 Systolic blood pressure 107 mm[Hg] [employer] Miguel Ángel Lindsey Work Phone: [facility] 04-03-2022 00:00-0500 Body height 195.58 cm [employer] Miguel Ángel Lindsey Work Phone: [facility] 04-03-2022 00:00-0500 Body temperature 97.6 [degF] [employer] Miguel Ángel Lindsey Work Phone: [facility] 04-03-2022 00:00-0500 Body weight 102.05 kg [employer] W[employer] Miguel Ángel Lindsey Work Phone: [facility] 04-03-2022 00:00-0500 Diastolic blood pressure 78 mm[Hg] [employer] Miguel Ángel Lindsey Work Phone: [facility] 04-03-2022 00:00-0500 Heart rate 81 /min [employer] Miguel Ángel Lindsey Work Phone: [facility] 04-03-2022 00:00-0500 Respiratory rate 18 /min [employer] Miguel Ángel Lindsey Work Phone: [facility] 04-03-2022 00:00-0500 SaO2% (BldA) [Mass fraction] 99 % [employer] Miguel Ángel Lindsey Work Phone: [facility] 04-03-2022 00:00-0500 Systolic blood pressure 130 mm[Hg] [employer] Miguel Ángel Lindsey Work Phone: [facility] 01-23-2022 08:55-0500 Body temperature 97.9 [degF] [employer] Miguel Ángel Lindsey Work Phone: [facility] 01-23-2022 08:55-0500 Diastolic blood pressure 74 mm[Hg] [employer] Miguel Ángel Lindsey Work Phone: [facility] 01-23-2022 08:55-0500 Heart rate 77 /min [employer] Miguel Ángel Lindsey Work Phone: [facility] 01-23-2022 08:55-0500 Respiratory rate 18 /min [employer] Miguel Ángel Portillo Work Phone: [facility] 01-23-2022 08:55-0500 SaO2% (BldA) [Mass fraction] 100 % [employer] Miguel Ángel Portillo Work Phone: [facility] 01-23-2022 08:55-0500 Systolic blood pressure 118 mm[Hg] [employer] Miguel Ángel Portillo Work Phone: [facility] 01-23-2022 08:53-0500 Body height 195.58 cm [employer] W[employer] Miguel Ángel Portillo Work Phone: [facility] 01-23-2022 08:53-0500 Body weight 104 kg [employer] W[employer] Miguel Ángel Portillo Work Phone: [facility] Encounters Encounter Date Encounter Type Care Provider Facility Start: 01-06-2023 End: 01-06-2023 Emergency department patient visit Helena Bhatti Facility:[facility] Start: 01-06-2023 End: 01-06-2023 Emergency department patient visit [facility] Work Phone: [facility] Work Phone: Start: 11-26-2022 End: 11-27-2022 Emergency department patient visit [facility] Facility:[facility] Start: 11-26-2022 End: 11-26-2022 Emergency department patient visit [facility] Work Phone: [facility] Work Phone: Start: 10-06-2022 End: 10-06-2022 Emergency department patient visit Miguel Ángel Lindsey Facility:[facility] Start: 10-01-2022 End: 10-01-2022 Emergency department patient visit Jose Nixon Facility:[facility] Start: 09-22-2022 End: 09-23-2022 Emergency department patient visit [facility] Facility:[facility] Start: 09-22-2022 End: 09-22-2022 Emergency department patient visit [facility] Work Phone: [facility] Work Phone: Start: 09-17-2022 End: 09-17-2022 Emergency department patient visit None Provider Facility:[facility] Start: 04-13-2022 End: 04-13-2022 [facility] Facility[facility] Start: 04-13-2022 End: 04-13-2022 Emergency department patient visit FRANCO Portillo Work Phone: [facility] Work Phone: Start: 04-03-2022 End: 04-03-2022 [facility] Start: 04-02-2022 End: 04-03-2022 Emergency department patient visit FRANCO Portillo Work Phone: [facility] Work Phone: Start: 01-23-2022 End: 01-23-2022 [facility] Start: 01-23-2022 End: 01-23-2022 Emergency department patient visit FRANCO Portillo Work Phone: [facility] Procedures Date Procedure Procedure Detail Performing Clinician Start: 04-03-2022 X-ray of right foot APR N Miguel Ángel Portillo Work Phone: Plan of Treatment Date Care Activity Detail Author Start: 01-06-2023 Plain chest X-ray XR chest 2V* [facility] Start: 01-06-2023 XR Chest 2 Views [facility] Start: 04-03-2022 X-ray of right foot XR foot RT min 3 V* [facility] Start: 04-03-2022 XR Foot - right GE 3 Views [facility] Patient Education [facility] Work Phone: [facility] Work Phone: Payers Date Payer Category Payer Private Health Insurance [id number] 2022 Private Health Insurance [id number] 2022 Self-pay [id number] 1970 Unknown [id number] 18 Unknown Regular Auto/Liability [id number] Unknown Insurance No Card [id number] Unknown [id number] [id number] 31 Unknown [id number] 2.16.840.1.588585.3.579.2.5 31 Unknown [id number] 2.16.840.1.166988.3.579.2.5 31 Unknown [id number] 2.16.840.1.963412.3.579.2.5 31 Unknown [id number] 2.16.840.1.206740.3.579.2.5 31 Unknown [id number] 2.16.840.1.485161.3.579.2.5 31 Unknown [id number] 2.16.840.1.568255.3.579.2.5 31 Unknown [id number] 2.16.840.1.773665.3.579.2.5 31 Social History Date Type Detail Facility Start: 01-23-2022 End: 01-06-2023 Tobacco smoking status NHIS Never smoked tobacco (finding) [facility] Start: 1970 Sex Assigned At Male F [facility] Clinical Note 09-17-2022 Note Date & Type [...] as fried or sweet foods. These include new zealander fries, hamburgers, cookies, candies, and soda. ? Drink enough fluid to keep your urine pale yellow. General instructions ? Exercise regularly or as told by your health care provider. Try to do 150 minutes of moderate exercise each week. ? Use the bathroom when you have the urge to go. Do not hold it in. ? Take zzdy-jvz-twdkvpt and prescription medicines only as told by [...] keep your urine pale yellow. ? Take lkuc-hws-xuiqawb and prescription medicines only as told by your health care provider. This includes any fiber supplements. This information is not intended to replace advice given to you by your health care provider. Make sure you discuss any questions you have with your health care provider. Document Revised: 01/16/2020 Document Reviewed: 01/16/2020 [employer] Patient Education ? 2022 [employer] Abdominal Pain, Adult Pain in the [...] these instructions at home: Medicines ? Take bihn-ngy-bwartji and prescription medicines only as told by [...] condition for any (more content not included)... [facility] Evaluation note Note Date & Type Note Facility Evaluation note No assessment information availa ble [facility] Work Phone: Hospital Discharge instructions Note Date & Type Note Facility Hospital Discharge instructions Additional Instructions Stop the gabapentin(Neurontin) if you feel the Lyrica prescribed today. You must follow-up with health department next week for further evaluation and treatment. [facility] Work Phone: Hospital Discharge instructions Note Date & Type Note Facility Hospital Discharge instructions Additional Instructions If your symptoms return/worsen or you develop any further concerns or symptoms please see your doctor or return to the emergency department immediately. [facility] Work Phone: Hospital Discharge instructions Note Date & Type Note Facility Hospital Discharge instructions Additional Instructions Rest as needed Increase oral fluids May take oqot-rod-ymtzufw Mucinex or Coricidin for symptoms May do warm salt water gargles throat lozenges cough drops Follow-up with family doctor as needed Return to the ER for high fever difficulty breathing chest pain or any other concerns [facility] Work Phone: Chief Complaint and Reason for [...] Ángel Portillo APRN Emergency Provider Active [facility] Active Team Status: Active Member Role Status Dates [facility] Active Team Status: Inactive Member Role Status Dates [facility] Primary Care Provider Active Jose Nixon , Emergency Provider Active Team Status: Inactive Member Role Status Dates [facility] Primary [facility] Provider Active Miguel Ángel Portillo APRN Emergency Provider Active Team Status: Inactive Member Role Status Dates [facility] Provider Active Preston Pike DO Emergency Provider Active Team Status: Inactive Member Role Status Dates [facility] Provider Active Ivan Aleman PA-C Emergency Provider Active Team Status: Inactive Member Role Status Dates [facility] Primary Care Provider Active Helena Bhatti , INTERVENTIONIST- Emergency Provider Active Goals (unrecognized section and [...] section and content) DATE CREATED AUTHOR 09/25/2022 [facility] DATE CREATED AUTHOR AUTHOR'S ORGANIZ ATION 01/19/2023 [facility] FOR RECORDS PERTAINING TO PATIENTS WHO [...] BE BASED ON THE PRIMARY CLINICAL RECORDS. [facility] provides no warranty or guarantee of the accuracy or completeness of information in this document.
== END 2023-04-05 11:05 | disposition home or self-care (01) ==
LOC: WC 11:05
PROVIDERS: Visit Provider Podiatrist Foot & Ankle Surgery
DX: E11.621 Type 2 diabetes mellitus with foot ulcer (principal); E11.65 Type 2 diabetes mellitus with hyperglycemia; L97.415 Non-pressure chronic ulcer of right heel and midfoot with muscle involvement without evidence of necrosis
CPT/HCPCS: G0463

== ENCOUNTER 2023-04-21 06:55 | Emergency (ER) | payer OTHER, SELFPAY ==
[2023-04-21 07:00] VITALS: BP 141/85; PULSE 86; RESP 18; TEMP 36.9; O2SAT 100; BMI 26.1
--- OUTSIDE RECORDS SUMMARY | 2023-04-21 07:05 | XMS_ITS | CCD ---
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 Name Role Phone FRANCO Portillo Emergency Provider [phone] [facility] Primary Care Provider DO Jose Nixon Emergency Provider [facility] Primary Care Provider [phone] DO Preston Pike Emergency Provider [phone] Provider, None Primary Care Unavailable Madeleine Kapadia Attending Unavailable Madeleine Kapadia Admitting Unavailable [facility] Primary Care Provider KELSIE Aleman Emergency Provider [phone] [facility] Helena Luke Emergency Provider [facility] Primary Care Unavailable Ivan Aleman Admitting Unavailable Ivan Aleman Attending Unavailable Helena Bhatti Attending Unavailable [facility] Primary Care Unavailable Lola Bhattier E Admitting Unavailable [facility] Primary Care Unavailable Preston Pike Admitting Unavailable Preston Pike Attending Unavailable [facility] Primary Care Unavailable Miguel Ángel Portillo Admitting Unavailable Miguel Ángel Portillo Attending Unavailable [facility], [facility] Primary Care Unavailable Jose Nixon Admitting Unavailable Jose Nixon Attending Unavailable [facility] Primary Care Unavailable Miguel Ángel Portillo Admitting Unavailable Miguel Ángel Portillo Attending Unavailable Tiffani, Jose A Admitting Unavailable KeisterJose Attending Unavailable [facility] Primary Care Unavailable Miguel Ángel Portillo Admitting Unavailable Miguel Ángel Portillo Attending [facility] Primary Care Unavailable Allergies Allergy Classification Reported Allergen(s) Allergy Type Date of Onset Reaction(s) Facility (1 source) No Known Medication Allergies; Translations: [No Known Medication Allergies] Propensity to adverse reactions to drug (disorder) [facility] Repository Medications Current Medications Medication Drug [...] XR chest 2V*on 01-06-2023 XR chest 2V* [facility] [place] [address] XRay Report Signed Patient: Jessica Pittman MR#: [id number] 91 : 1970 Acct:[id number] Age/Sex: 52 / M ADM Date: 01/06/23 Loc: ER Room: Type: [facility] ER Attending Dr: Copies to: LUTHER Holm Ordering Provider: LUTHER Holm Date of Service: 01/06/23 XR/XR chest 2V*: Upper Respiratory Infection PA AND LATERAL CHEST: CLINICAL HISTORY: Body aches, chills and productive cough and diarrhea COMPARISON: 10/29/2006 The nodular asymmetry at the right lower lung is not obvious on the comparison chest x-ray though is seen on cash management associate view from an abdominal CT from December 30, 20192013. There is no focal parenchymal consolidation, effusion or pneumothorax. The cardiac, hilar and mediastinal silhouettes are within normal limits. There is no vascular congestion. The visualized bony thorax is intact. Endplate spurring is present. XR/XR chest 2V* IMPRESSION: NO ACUTE CARDIOPULMONARY ABNORMALITY. Impression dictated by: Amy Quiles M.D.01/06/2023 3:05 PM Dictation Location: [place] [address] Transcribed By: [facility] 01/06/23 1505 Dictated By: Amy Quiles MD 01/06/23 1502 Signed By: 01/06/23 1505 Normal [facility] Complete Blood Count Auto Di ffon 10-06-2022 Basophils (Bld) [#/Vol] 0.0 10*3/uL Normal 0.0-0.2 [facility] Comment on above: Performed By: #### H EPATIC, LIPASE, CBC, ESR, CMP ####[address] Basophils/100 WBC (Bld) 0.7 % Normal . [facility] Comment on above: Performed By: #### H EPATIC, LIPASE, CBC, ESR, CMP ####[address] Eosinophils (Bld) [#/Vol] 0.2 10*3/uL Normal 0.0-0.45 [facility] Comment on above: Performed By: #### H EPATIC, LIPASE, CBC, ESR, CMP ####[address] Eosinophils/100 WBC (Bld) 3.2 % Normal . [facility] Comment on above: Performed By: #### H EPATIC, LIPASE, CBC, ESR, CMP ####[address] Erythrocyte distribution width (RBC) [Ratio] 12.8 % Normal 12.0-14.8 [facility] Comment on above: Performed By: #### H EPATIC, LIPASE, CBC, ESR, CMP ####[address] Hematocrit (Bld) [Volume fraction] 38.9 % Normal 38.8-50.0 [facility] Comment on above: Performed By: #### H EPATIC, LIPASE, CBC, ESR, CMP ####[address] Hemoglobin (Bld) [Mass/Vol] 13.2 g/dL Normal 13.0-17.0 [facility] Comment on above: Performed By: #### H EPATIC, LIPASE, CBC, ESR, CMP ####[address] Lymphocytes (Bld) [#/Vol] 2.3 10*3/uL Normal 1.00-4.8 [facility] Comment on above: Performed By: #### H EPATIC, LIPASE, CBC, ESR, CMP ####[address] Lymphocytes/100 WBC (Bld) 35.1 % Normal . [facility] Comment on above: Performed By: #### H EPATIC, LIPASE, CBC, ESR, CMP ####[address] MCH (RBC) [Entitic mass] 30.2 pg Normal 27.5-35.2 [facility] Comment on above: Performed By: #### H EPATIC, LIPASE, CBC, ESR, CMP ####[address] MCV (RBC) [Entitic vol] 89.2 fL Normal 83.5-101 [facility] Comment on above: Performed By: #### H EPATIC, LIPASE, CBC, ESR, CMP ####[address] Mean Corpuscular HGB Conc 33.9 g/dL Normal 32.5-35.6 [facility] Comment on above: Performed By: #### H EPATIC, LIPASE, CBC, ESR, CMP ####[address] Monocytes (Bld) [#/Vol] 0.6 10*3/uL Normal 0.0-0.8 [facility] Comment on above: Performed By: #### H EPATIC, LIPASE, CBC, ESR, CMP ####[place] [address] Monocytes/100 WBC (Bld) 16.18 % Normal 0.00-20.00 [facility] Comment on above: Performed By: #### H EPATIC, LIPASE, CBC, ESR, CMP ####[address] Monocytes/100 WBC (Bld) 8.7 % Normal . [facility] Comment on above: Performed By: #### H EPATIC, LIPASE, CBC, ESR, CMP ####[address] Neutrophils (Bld) [#/Vol] 3.4 10*3/uL Normal 1.8-7.7 [facility] Comment on above: Performed By: #### H EPATIC, LIPASE, CBC, ESR, CMP ####[address] Neutrophils/100 WBC (Bld) 52.3 % Normal . [facility] Comment on above: Performed By: #### H EPATIC, LIPASE, CBC, ESR, CMP ####[address] NRBC% 0.1 /100{WBC} Normal 0-0.5 [facility] Comment on above: Performed By: #### H EPATIC, LIPASE, CBC, ESR, CMP ####[address] Platelet mean volume (Bld) [Entitic vol] 7.2 fL Normal 6.6-10.1 [facility] Comment on above: Performed By: #### H EPATIC, LIPASE, CBC, ESR, CMP ####[address] Platelets (Bld) [#/Vol] 279 10*3/uL Normal 150-450 [facility] Comment on above: Performed By: #### H EPATIC, LIPASE, CBC, ESR, CMP ####[address] RBC (Bld) [#/Vol] 4.37 10*6/uL Normal 3.90-5.60 [facility] Comment on above: Performed By: #### H EPATIC, LIPASE, CBC, ESR, CMP ####[facility] [address] WBC (Bld) [#/Vol] 6.6 10*3/uL Normal 4.1-10.5 [facility] Comment on above: Performed By: #### H EPATIC, LIPASE, CBC, ESR, CMP ####[facility] Comprehensive Metabolic Pane ofe 10-06-2022 Albumin [Mass/Vol] 4.8 g/dL Normal 3.5-5.7 [facility] Comment on above: Performed By: #### H EPATIC, LIPASE, CBC, ESR, CMP #### [facility] [address] Albumin/Globulin [Mass ratio] 1.5 {ratio} Normal [facility] Comment on above: Performed By: #### H EPATIC, LIPASE, CBC, ESR, CMP #### [facility] [address] ALP [Catalytic activity/Vol] 110 U/L High 34-104 [facility] Comment on above: Performed By: #### H EPATIC, LIPASE, CBC, ESR, CMP #### [facility] [address] ALT [Catalytic activity/Vol] 42 U/L Normal 7-52 [facility] Comment on above: Performed By: #### H EPATIC, LIPASE, CBC, ESR, CMP #### [facility] [address] Anion gap [Moles/Vol] 9.1 mmol/L Normal 6.0-15.0 [facility] Comment on above: Performed By: #### H EPATIC, LIPASE, CBC, ESR, CMP #### [facility] [address] AST [Catalytic activity/Vol] 29 U/L Normal 13-39 [facility] Comment on above: Performed By: #### H EPATIC, LIPASE, CBC, ESR, CMP #### [address] Bilirubin [Mass/Vol] 0.4 mg/dL Normal 0.3-1.0 [facility] Comment on above: Performed By: #### H EPATIC, LIPASE, CBC, ESR, CMP #### [address] Calcium [Mass/Vol] 9.6 mg/dL Normal 8.6-10.3 [facility] Comment on above: Performed By: #### H EPATIC, LIPASE, CBC, ESR, CMP #### [address] Chloride [Moles/Vol] 106 mmol/L Normal 98-107 [facility] Comment on above: Performed By: #### H EPATIC, LIPASE, CBC, ESR, CMP #### [address] CO2 [Moles/Vol] 26.7 mmol/L Normal 21.0-31.0 [facility] Comment on above: Performed By: #### H EPATIC, LIPASE, CBC, ESR, CMP #### [address] Creatinine [Mass/Vol] 1.05 mg/dL Normal 0.70-1.30 [facility] Comment on above: Performed By: #### H EPATIC, LIPASE, CBC, ESR, CMP #### [address] Creatinine Clr Calc Pharmacy 106.07 [facility] Comment on above: Performed By: #### H EPATIC, LIPASE, CBC, ESR, CMP #### [address] GFR/1.73 sq M.predicted MDRD (S/P/Bld) [Vol rate/Area] mL/min/{1.73_m2} [facility] Comment on above: Performed By: #### H EPATIC, LIPASE, CBC, ESR, CMP #### [facility] [address] Globulin (S) [Mass/Vol] 3.2 g/dL Normal [facility] Comment on above: Performed By: #### H EPATIC, LIPASE, CBC, ESR, CMP #### [facility] [address] Glucose [Mass/Vol] 160 mg/dL High 70-100 [facility] Comment on above: Result Comment: [facility] Glucose Reference Range is dependent on time and content of last meal. Glucose of more than 200 mg/dL in a nonstressed, ambulatory subject supports the diagnosis of Diabetes Mellitus. ADA recommended reference range Performed By: #### H EPATIC, LIPASE, CBC, ESR, CMP #### [facility] [address] Potassium [Moles/Vol] 3.8 mmol/L Normal 3.5-5.1 [facility] Comment on above: Performed By: #### H EPATIC, LIPASE, CBC, ESR, CMP #### [facility] [address] Protein [Mass/Vol] 8.0 g/dL Normal 6.4-8.9 [facility] Comment on above: Performed By: #### H EPATIC, LIPASE, CBC, ESR, CMP #### [address] Sodium [Moles/Vol] 138 mmol/L Normal 136-145 [facility] Comment on above: Performed By: #### H EPATIC, LIPASE, CBC, ESR, CMP #### [facility] [address] Urea nitrogen [Mass/Vol] 12 mg/dL Normal 7-25 [facility] Comment on above: Performed By: #### H EPATIC, LIPASE, CBC, ESR, CMP #### [facility] [address] Erythrocyte Sedimentation Ra mahsa 10-06-2022 ESR (Bld) [Velocity] 15 mm/h Normal 0-19 [facility] Comment on above: Result Comment: PERF ORMED BY: [facility] [address] [place] [address] PATHOLOGIST WATCH ELECTRICIAN ERICK ACEVEDO M.D. Performed By: #### H EPATIC, LIPASE, CBC, ESR, CMP ####[address] Hepatic Panelon 10-06-2022 Bilirubin,Indirect 0.3 mg/dL Normal [facility] Comment on above: Performed By: #### H EPATIC, LIPASE, CBC, ESR, CMP #### [facility] [address] Bilirubin.indirect [Mass/Vol] 0.10 mg/dL Normal 0.03-0.18 [facility] Comment on above: Performed By: #### H EPATIC, LIPASE, CBC, ESR, CMP #### [address] Lipaseon 10-06-2022 Lipase [Catalytic activity/Vol] 65.0 U/L Normal 11.0-82.0 [facility] Comment on above: Result Comment: PERF ORMED BY: [place] [address] PATHOLOGIST WATCH ELECTRICIAN ERICK ACEVEDO M.D. Performed By: #### H EPATIC, LIPASE, CBC, ESR, CMP ####[address] Basic Metabolic Panelon 09-12 Anion gap [Moles/Vol] 9.2 mmol/L Normal 6.0-15.0 [facility] Comment on above: Performed By: #### C BC, HEPATIC, BMP, LIPASE #### [address] Calcium [Mass/Vol] 9.6 mg/dL Normal 8.6-10.3 [facility] Comment on above: Performed By: #### C BC, HEPATIC, BMP, LIPASE #### [address] Chloride [Moles/Vol] 105 mmol/L Normal 98-107 [facility] Comment on above: Performed By: #### C BC, HEPATIC, BMP, LIPASE #### [facility] [address] CO2 [Moles/Vol] 27.9 mmol/L Normal 21.0-31.0 [facility] Comment on above: Performed By: #### C BC, HEPATIC, BMP, LIPASE #### [facility] [address] Creatinine [Mass/Vol] 1.17 mg/dL Normal 0.70-1.30 [facility] Comment on above: Performed By: #### C BC, HEPATIC, BMP, LIPASE #### [facility] [address] Creatinine Clr Calc Pharmacy 103.27 [facility] Comment on above: Performed By: #### C BC, HEPATIC, BMP, LIPASE #### [facility] [address] [place] [address] [place] GFR/1.73 sq M.predicted MDRD (S/P/Bld) [Vol rate/Area] mL/min/{1.73_m2} [facility] Comment on above: Performed By: #### C BC, HEPATIC, BMP, LIPASE #### [address] Glucose [Mass/Vol] 140 mg/dL High 70-100 [facility] Comment on above: Result Comment: [place] Glucose Reference Range is dependent on time and content of last meal. Glucose of more than 200 mg/dL in a nonstressed, ambulatory subject supports the diagnosis of Diabetes Mellitus. ADA recommended reference range Performed By: #### C BC, HEPATIC, BMP, LIPASE #### [facility] [address] Potassium [Moles/Vol] 4.1 mmol/L Normal 3.5-5.1 [facility] Comment on above: Performed By: #### C BC, HEPATIC, BMP, LIPASE #### [facility] [address] [place] [address] [place] Sodium [Moles/Vol] 138 mmol/L Normal 136-145 [facility] Comment on above: Performed By: #### C BC, HEPATIC, BMP, LIPASE #### [facility] [address] Urea nitrogen [Mass/Vol] 11 mg/dL Normal 7-25 [facility] Comment on above: Performed By: #### C BC, HEPATIC, BMP, LIPASE #### [facility] [address] abdomen pelvis w conon CT abdomen pelvis w con [facility] [place] [address] [place] [address] CT Scan Report Signed Patient: Jessica Pittman MR#: [id number] 91 : 1970 Acct:[id number] Age/Sex: 52 / M ADM Date: 10/01/22 Loc: ER Room: Type: [facility] ER Attending Dr: Copies to: Jose [...] Teofilo Ulloa M.D.10/01/2022 5:38 PM Dictation Location: [place] [address] Transcribed By: [facility] 10/01/22 173 Dictated By: Teofilo Ulloa II, MD 10/01/22 172 Signed By: 10/01/22 173 Normal [facility] Complete Blood Count Auto Di ffon 10-01-2022 Basophils (Bld) [#/Vol] 0.1 10*3/uL Normal 0.0-0.2 [facility] Comment on above: Result Comment: PERF ORMED BY: [place] [address] PATHOLOGIST WATCH ELECTRICIAN ERICK ACEVEDO M.D. Performed By: #### C BC, HEPATIC, BMP, LIPASE #### [address] Basophils/100 WBC (Bld) 0.7 % Normal . [facility] Comment on above: Performed By: #### C BC, HEPATIC, BMP, LIPASE #### [facility] [address] Eosinophils (Bld) [#/Vol] 0.1 10*3/uL Normal 0.0-0.45 [facility] Comment on above: Performed By: #### C BC, HEPATIC, BMP, LIPASE #### [facility] [address] [place] [address] [place] Eosinophils/100 WBC (Bld) 1.2 % Normal . [facility] Comment on above: Performed By: #### C BC, HEPATIC, BMP, LIPASE #### [address] Erythrocyte distribution width (RBC) [Ratio] 12.8 % Normal 12.0-14.8 [facility] Comment on above: Performed By: #### C BC, HEPATIC, BMP, LIPASE #### [address] Hematocrit (Bld) [Volume fraction] 40.4 % Normal 38.8-50.0 [facility] Comment on above: Performed By: #### C BC, HEPATIC, BMP, LIPASE #### [address] Hemoglobin (Bld) [Mass/Vol] 13.4 g/dL Normal 13.0-17.0 [facility] Comment on above: Performed By: #### C BC, HEPATIC, BMP, LIPASE #### [address] Lymphocytes (Bld) [#/Vol] 1.9 10*3/uL Normal 1.00-4.8 [facility] Comment on above: Performed By: #### C BC, HEPATIC, BMP, LIPASE #### [address] Lymphocytes/100 WBC (Bld) 21.4 % Normal . [facility] Comment on above: Performed By: #### C BC, HEPATIC, BMP, LIPASE #### [address] MCH (RBC) [Entitic mass] 29.7 pg Normal 27.5-35.2 [facility] Comment on above: Performed By: #### C BC, HEPATIC, BMP, LIPASE #### [address] MCV (RBC) [Entitic vol] 89.7 fL Normal 83.5-101 [facility] Comment on above: Performed By: #### C BC, HEPATIC, BMP, LIPASE #### [address] Mean Corpuscular HGB Conc 33.1 g/dL Normal 32.5-35.6 [facility] Comment on above: Performed By: #### C BC, HEPATIC, BMP, LIPASE #### [address] [place] [address] [place] Monocytes (Bld) [#/Vol] 0.8 10*3/uL Normal 0.0-0.8 [facility] Comment on above: Performed By: #### C BC, HEPATIC, BMP, LIPASE #### [facility] [address] [place] [address] [place] Monocytes/100 WBC (Bld) 15.24 % Normal 0.00-20.00 [facility] Comment on above: Performed By: #### C BC, HEPATIC, BMP, LIPASE #### [facility] [address] [place] [address] [place] Monocytes/100 WBC (Bld) 9.5 % Normal . [facility] Comment on above: Performed By: #### C BC, HEPATIC, BMP, LIPASE #### [facility] [address] [place] [address] Neutrophils (Bld) [#/Vol] 5.9 10*3/uL Normal 1.8-7.7 [facility] Comment on above: Performed By: #### C BC, HEPATIC, BMP, LIPASE #### [facility] [address] [place] [address] Neutrophils/100 WBC (Bld) 67.2 % Normal . [facility] Comment on above: Performed By: #### C BC, HEPATIC, BMP, LIPASE #### [facility] [address] [place] [address] [place] NRBC% 0.1 /100{WBC} Normal 0-0.5 [facility] Comment on above: Performed By: #### C BC, HEPATIC, BMP, LIPASE #### [facility] [address] [place] [address] [place] Platelet mean volume (Bld) [Entitic vol] 7.1 fL Normal 6.6-10.1 [facility] Comment on above: Performed By: #### C BC, HEPATIC, BMP, LIPASE #### [facility] [address] [place] [address] [place] Platelets (Bld) [#/Vol] 291 10*3/uL Normal 150-450 [facility] Comment on above: Performed By: #### C BC, HEPATIC, BMP, LIPASE #### [facility] [address] RBC (Bld) [#/Vol] 4.51 10*6/uL Normal 3.90-5.60 [facility] Comment on above: Performed By: #### C BC, HEPATIC, BMP, LIPASE #### [facility] [address] WBC (Bld) [#/Vol] 8.8 10*3/uL Normal 4.1-10.5 [facility] Comment on above: Performed By: #### C BC, HEPATIC, BMP, LIPASE #### [facility] [address] Dipstick and Microscopicon 0 10-01-2022 Appearance (U) Clear Normal Clear [facility] Comment on above: Order Comment: Name Collection Type:: Clean-Voided Midstream Performed By: #### A DDONUAPLUS ####[address] Bacteria,Urine None Seen Normal None Seen [facility] Comment on above: Order Comment: Name Collection Type:: Clean-Voided Midstream Performed By: #### A DDONUAPLUS ####[address] Bilirubin,Urine Negative Normal Negative [facility] Comment on above: Order Comment: Name Collection Type:: Clean-Voided Midstream Performed By: #### A DDONUAPLUS ####[address] Color (U) Yellow Normal Yellow [facility] Comment on above: Order Comment: Name Collection Type:: Clean-Voided Midstream Performed By: #### A DDONUAPLUS ####[address] Glucose Ql (U) 100 mg/dL High Normal [facility] Comment on above: Order Comment: Name Collection Type:: Clean-Voided Midstream Performed By: #### A DDONUAPLUS ####[address] [place] [address] [place] Hyaline Casts,Urine None Seen Normal 0-8 [facility] Comment on above: Order Comment: Name Collection Type:: Clean-Voided Midstream Performed By: #### A DDONUAPLUS ####[address] [address] [facility] Ketones Ql (U) Negative Normal Negative [facility] Comment on above: Order Comment: Name Collection Type:: Clean-Voided Midstream Performed By: #### A DDONUAPLUS ####[address] [address] [facility] Leukocyte esterase Test strip Ql (U) 2+ High Negative [facility] Comment on above: Order Comment: Name Collection Type:: Clean-Voided Midstream Performed By: #### A DDONUAPLUS ####[address] [address] [facility] Nitrite,Urine Negative Normal Negative [facility] Comment on above: Order Comment: Name Collection Type:: Clean-Voided Midstream Performed By: #### A DDONUAPLUS ####[address] [address] [place] Occult Blood,Urine Negative Normal Negative [facility] Comment on above: Order Comment: Name Collection Type:: Clean-Voided Midstream Result Comment: PERF ORMED BY: [facility] [address] [place] [address] PATHOLOGIST WATCH ELECTRICIAN ERICK ACEVEDO M.D. Performed By: #### A DDONUAPLUS ####[address] [address] [place] pH (U) 5.0 [pH] Normal 5.0-9.0 [facility] Comment on above: Order Comment: Name Collection Type:: Clean-Voided Midstream Performed By: #### A DDONUAPLUS ####[address] [address] [place] Protein,Urine Negative Normal Negative [facility] Comment on above: Order Comment: Name Collection Type:: Clean-Voided Midstream Performed By: #### A DDONUAPLUS ####[address] [address] [facility] RBC LM.HPF (Urine sed) [#/Area] 0 /[HPF] Normal 0-4 [facility] Comment on above: Order Comment: Name Collection Type:: Clean-Voided Midstream Performed By: #### A DDONUAPLUS ####[address] Specificy [place],Urine 1.029 Normal 1.001-1.030 [facility] Comment on above: Order Comment: Name Collection Type:: Clean-Voided Midstream Performed By: #### A DDONUAPLUS ####[address] Squamous Epithelial Cell,Urine None Seen Normal 0-2 [facility] Comment on above: Order Comment: Name Collection Type:: Clean-Voided Midstream Performed By: #### A DDONUAPLUS ####[address] Urobilinogen,Urine Normal Normal Normal [facility] Comment on above: Order Comment: Name Collection Type:: Clean-Voided Midstream Performed By: #### A DDONUAPLUS ####[address] WBC LM.HPF (Urine sed) [#/Area] 0 /[HPF] Normal 0-4 [facility] Comment on above: Order Comment: Name Collection Type:: Clean-Voided Midstream Performed By: #### A DDONUAPLUS ####[address] Yeast,Urine 2+ Critically abnormal None Seen [facility] Comment on above: Order Comment: Name Collection Type:: Clean-Voided Midstream Result Comment: PERF ORMED BY: [facility] [address] [place] [address] PATHOLOGIST WATCH ELECTRICIAN ERICK ACEVEDO M.D. Performed By: #### A DDONUAPLUS ####[address] Hepatic Panelon 10-01-2022 Albumin [Mass/Vol] 4.7 g/dL Normal 3.5-5.7 [facility] Comment on above: Performed By: #### C BC, HEPATIC, BMP, LIPASE #### [facility] [address] Albumin/Globulin [Mass ratio] 1.3 {ratio} Normal [facility] Comment on above: Performed By: #### C BC, HEPATIC, BMP, LIPASE #### [facility] [address] ALP [Catalytic activity/Vol] 101 U/L Normal 34-104 [facility] Comment on above: Performed By: #### C BC, HEPATIC, BMP, LIPASE #### [facility] [address] ALT [Catalytic activity/Vol] 31 U/L Normal 7-52 [facility] Comment on above: Performed By: #### C BC, HEPATIC, BMP, LIPASE #### [facility] [address] [place] [address] AST [Catalytic activity/Vol] 23 U/L Normal 13-39 [facility] Comment on above: Performed By: #### C BC, HEPATIC, BMP, LIPASE #### [address] Bilirubin [Mass/Vol] 0.4 mg/dL Normal 0.3-1.0 [facility] Comment on above: Performed By: #### C BC, HEPATIC, BMP, LIPASE #### [facility] [address] Bilirubin,Indirect 0.3 mg/dL Normal [facility] Comment on above: Performed By: #### C BC, HEPATIC, BMP, LIPASE #### [facility] [address] Bilirubin.indirect [Mass/Vol] 0.10 mg/dL Normal 0.03-0.18 [facility] Comment on above: Performed By: #### C BC, HEPATIC, BMP, LIPASE #### [facility] [address] Globulin (S) [Mass/Vol] 3.6 g/dL Normal [facility] Comment on above: Performed By: #### C BC, HEPATIC, BMP, LIPASE #### [facility] [address] [place] [id number] [facility] Protein [Mass/Vol] 8.3 g/dL Normal 6.4-8.9 [facility] Comment on above: Performed By: #### C BC, HEPATIC, BMP, LIPASE #### [facility] [address] Lipaseon 10-01-2022 Lipase [Catalytic activity/Vol] 22.0 U/L Normal 11.0-82.0 [facility] Comment on above: Result Comment: PERF ORMED BY: [place] [address] PATHOLOGIST WATCH ELECTRICIAN ERICK ACEVEDO M.D. Performed By: #### C BC, HEPATIC, BMP, LIPASE #### [facility] [address] Coding Summaryon 09-24-2022 Coding Summary HTMLBase 64 TzueuforZWs7eNk+PGhl YWQ+UR8AORLcP67gzUHn cK7qZ1UEDCtHIqlcNGXX SRsYQzBqpbElMK0ohXMp ZXJu IC8+JI6nIVBoYuainRGi i6Q9xVN8P21noi1dVGpb qVZ2NTBsBkDuowwya8pj eHh5IHagDuavWrPn JHRhrW63CHH2iK40Wh18 yDYjjWJej3vxmJk6VyXe FYTaXDS9iWgxGUwel5Ha IJBwB42ifCQoy3U7 IGNvbGxhcHNlOyBlbXB0 mX4gARnclkcve3jpsnvx Fpy5di18aXAtc6N4yYM2 H1AcmrW1NZHhqKZs XewscUJHsY1qlkmbp2sl qgxaVxWnVSZiKMv0CZx5 RGZxrBokJaSrLR52RDT5 RLMpocAwJ9SpDSIb fWooFdX8u1D1Yb6JP5UY ZrkwA4BJFJRHSFuwbXM+ NX80qa07L2GdCwwfHwm2 BGTzWEL4zEU0tC6c FMFnEEcyq8P1iIN9Q3Gk haMlau0ka9xeEUAkYKhs F86gxQVct4C0HMHgrHP1 YHFieVzcXsGiyA72 Oyc+JKNumNuns1VrVumm u7opi1umvKm8GyotSVHm eyMwqScjQJX1x5NvQc3b EQWrqMN0oNM9rW9f HcKxPrV5TIorN820YgSw aUHcSekzH46gI4ZiuQB+ AEIsTsu2ZRArvJqiPL6h W7YmUKUdpavkfZEk nWdhBI1sIQAgepbgZACg kP4oLTHlO2z4IbDcJaL2 MTxsZ5EdGVLdgplrNo72 hZ8uTwRyVsK3YGuc L4AffqR2CUYugHHhZWfv BMY6J52at7L7TQEjYOIt XKE9oPD0oZ5dbNamblhy bGVmdDsgdmVydGlj YJwjPZdeX332PAFhrJrb PkNvZGluZyBEYXRlOiAg MDcvMTQvMjAyMzwvdGQ+ JRFqBTO2gGkoSLPi jRCxEWxlUd4mcMnoaLtx UQ8vFNDdigjnBFEnqV3d ZITzkDPnkLqvEP5lOWOg cmcmw183IdAtXLN2 TILjwNAnD5SclS6eGyFl VSViNXUfV2OwfSMeIMfg D628LBbkGbI4YUPyrtEr M9IeJPPlbAezEbR5 j2T2Lw0Di5UutbokD1Hw jHQeTfRjJsohBCt0E0Tj PjwvdHI+LZ69OKFsUM03 DCe8HGZ6yZraTHkz POAbK4YriO0oAgYfVKLk ZGRkOyc+PHRhYmxlIHdp ZHRoPScxMDAlJyBzdHls RN7mMa5yYXHhCSXy fGnyoGLaThCoo1bhNTDe ZHxfMP0ajHdxR7DktZH8 OTDvd6a9Pd75F92fE6Ju dXA+FVAnlKP0gYF8 mJ4dYiLaTeP8IMfzD459 VlTonRLgXzmtm5mkq4rs zWm1EhM1KZKbzbWyjPso HAH9r0JfSc86D25d IHdpZHRoPSIxNSUiIHZh fSfdcu4jlF7xEz0+PGNv fSJ0vMQ8tH0zNeDdHqE4 KPefD908TdNofFPo Olmnl0xid4sdqUo3CbEw DOHefiVbrGodTXO2c3Ge Hz30D3YjnFghj3RwUgn9 ls55hQKht9I5cCV3 R6PcZLEatclmmFZdbIhl TQ0kISXmexkzOVJiwW3i VJTbT5d9SwBsZiA0ELwj O9DobxS4KQYfhIHh KKWveBJBhL7zyncvx5ak cgxeKuRkQBSwVNa1JZq6 TQVotVceFzFcVZH8KpI9 YZN7hENnsP5ohOrc ubffrW7eHqk+JWL6vEJq pNVJSD0lNuhcgSD+PHRk MWM0yGefJLzdWDBhkP1a ZKJsD7f0PfVkLrJ0 BRujN8PhgnX6CQKjzGWs WGRwfSKIsA3orspjc8vj nrstOvVeXUFkLEz8RXj0 LWFsaWduOiBsZWZ0 ZbH5NTQ1tDDmeV2pnGkq jtxjpO0aThr+QmlydGgg AUF8OKo9U3ThHnj7ACDq xZhwFH3kuMMzAKcv Xx8lsZsuhPmoGC0mGXNw kfskv773EvDcy8upZRAg yVJtHCcnCLC8Y69lw3S6 ZAUeNTRuNBB5kDP2 gU9qnKflladcbWAvvCmn xxMwgBtvQLqkYSdrH783 KNRtaIjeWaBjKEf4Y9Sb Sod6ILLryZweNE1e hMCiLMqyUy0hxMtziDzb WC8vWLDhtfwcq680LbTi h5leFGDznXXlKRbrQUL2 F40wh0G9USOfSVIo XFS4zOF0eG5itEftfcvd bGVmdDsgdmVydGljYWwt QYdrI084VIHfkPsgMuMc hFp0O5PdOka1DANj vBlyNE3aiRXtCRkuUt5h kXtlmIlvQH8nPKGiapmh k819MjZep4dyVHCjuOXy IOyeDTG3V75rd6Y2 JGKfPVWwWLI5lGC9aQ1p bGlnbjogbGVmdDsgdmVy pJdhIVeqGLviC702ROXu cDsnPlBhdGllbnQg NMdjDAe1N5GqXvxshLY+ GX86LTDiHQ41qYNpkCTh a3nteAf3WrBpEOKqXAN6 fUjdQAfpd6LxZAMf K82vvJLup3H6TCFinSij rPNbBvKdbAQ0vD5tJRzu eqddu4pnohzdBeubp5ec sq92pL67K65wCIag ZHRoPSIzMCUiIHZhbGln lp1crQ5cXs5+PGNvbCB3 vTV7vR6vBSPfMyA0BDfz H457KkBchKMjZnoe d3ulp4jowOn2JkQ7WQRr jxUacLhkODE8x4LtFq53 H21cKKodSOSoCOWfTSEk SUSobQntae1fhY3q Ii8+MOPtbFP5gPR8mU0x JhHfTbU2WRegT152PxSx pTPfTjmnH46hC8GawYJ+ KTHwMsh6EDYesHgr EH6jmAWyNQfdEh0pESD7 MaTeGqJkIYuwQ5AdVRZh liwxyvojwOX5KSCnZYTe jO23Do3dfLtvHQTp dOCKrH9idbnpv5hqnuwr AeQxLDPsNBh5ACx6UMHx cTzmStPsFPB7BuR1YLJ7 kUCewA3psKmrsbmq wD9jP6SlHQYoofriOh55 wX2gIxHhJyQ1EZxyUip+ PTCRF2PWVGItXKuULEHT GJ29UY66zVXlj2G0 cYI8M4RbFRCpfkyeotav uAV6DRMqCXNfbF94fSXz ESezTw4zd1M4y633EGQu EEZytC10Ig5noPfd MAWzpZPDmA3wpdped8uh rkxpJaIcWWLxFGu9BWo6 LFTajZzlClCtOUI3PrO3 BSY1qYSwlY4mrDvr khtvwG4iKhi+MTIvMjgv FZm9GjywsRG+PHRkIHN0 nFmaNWxeQYBhsO4bABHr V2r0ReVgQmC4IQlc Z4VaKUNqiivoCh68uW4a TfTsPvW8XUxbJ3NbkwN9 ELBkwYTlYIheOUR0J04p q8A6VYJnCQDiXNM6 qGI7bR0zhYfjyehahWWh dDsgdmVydGljYWwtYWxp X963OVKexJelFiOrNDck PGOuLC01TX69aGWj b6U6oHB7E2LcALIfvdnk izyrcFJ1ZKVuXCGuxK28 lGTjPSzzUj9gj1J2x736 BFIaMAMacU31Tj9r sBeyZVIptFGYzN8yjkqn w1piqkcgFoKmUJSbUBy7 YWx3VXYfbUqpYrBvMZV9 YrC9PMH1uPSubK1r oAnrrmooyH1aIev+TUFM RTwvdGQ+TATeIMG7uRxd WWelROXulZ9yBFRvW3n2 KaHuLyJ3XTqzA5Qu PXRtpkziSd91pJ8nNvNp YxG4WLpzE1NgqtH5CVBk kVUhFMcdFVU0S84ss8Z9 FGMcYQNiHXI7jPY2 sQ9olKhcfqgbiGPnySur byZuwJflNBriZGzjD111 MXGlxSunBsTwNDOgKD1e eTwvdGQ+TQ28ax79 K0RcGsxbFhk5JQGkRSQ8 rHM5bI5sGNZnNUehp5T7 jCP3D4NjbbUocd9dg9yj EPAxLFjbE37qhPOs r7G7PORymRL1EOUteJpt SoSitW55Fti+PGNvbGdy c6SeLqthb3ddr6plbYh9 IjMwJSIgdmFsaWdu HIR5z1ZwUd74R22tROec ZHRoPSIzMCUiIHZhbGln xa2rzZ2hXz7+PGNvbCB3 zWT7wK0jEwXxVrJ3 YNvhI167ZbDbzMSyTuaj g1gbf8hatBm8IwTjXODb ggPqkQwuQTP2v3AnEv92 M0XgqDisn6RbXpa0 rk14fQLud0K8eAQ0P8We VWXhmiwicBNpyVpySF4x IJKzgzjjDEXqxM8eGYKo U4i9XqWxTtM5DFpu J6QrvnM1OHNwoTPdAHUy lSQEfX3mquhkc9kdqzgv VeVlMDVtQEi9BPf1GCTd qUyaQvBzPNH8YvJ1 UJK1qCMpbD1mtBgyznvn qW4iYxt+QBk3u7crsAGa NC3ftCX4RQ07DR29kGNl b4N4qLA8P7EyLYSo pklgkyvaeSG9JKIrXJGo pY08Ob9jiKeuSr5sMRBw EPS2XOVdyPErD6HisD6g XwWbGCLzWLItB2Qs pXKpLFndN387JExmVbS8 HWSpazHiM0PfJSQyqVuk FsS6n7X2Qi2YLA86ZQ73 CY13yNHug9P3fFD8 N7BaRHSrkegitxnaqQN3 FZVlGJGhuF52Dl1apLrv Ow1aUREsBSR8PGJgoIRw A4PqqJ5yLeOiGUPs UJUwS8GiqKAgGNsfZ920 KOqiApI7YSNsouPkM9Ba XWHtbTqvJtD4r0V9Cq3G Xh10ZG92DH85vQWr m6D8hEU1Y3KeOSJavpio tqqycPD3YZCwFERseG39 Aj4kcSxuNo5cMWIlOJE2 UOLvlCUqY7MitQ6a DjSeTWLrCBHiF4KhoDTz QEviG858DRzmBwO4RYFv kuFvK5LxKDSgjOxdHxE4 a6Z6Rq0ZNYwrzes6 H3QxHjuzrQK+VS15DLVu NR43iRNgzLSgf0qomOg8 NgIkDPXrGLI7hCgzAAdi l2KdMVHkF95jwWXo c2U (more content not included)... Normal [facility] ED Clinical Summaryon [address] [facility] [address] [place] [address] [id number] ED Clinical Summary PERSON INFORMATION Name: JESSICA PITTMAN Age: 52 Years Sex: MALE : 1970 MRN: Acct#: Visit Reason: Abdominal pain; ABDOMINAL PAIN Arrival: 09/17/2022 12:55:44 Discharge: 09/17/2022 15:03:00 LOS: 000 02:08 Check In: 09/17/2022 12:55:44 Checkout:09/17/2022 15:03:00 Address: [address] [place] [address] PCP: Provider, None PROVIDER INFORMATION Provider Role Assigned Unassigned Madeleine Kapadia CNP ED PA 09/17/2022 13:04:18 Josep Mazariegos UTILITY PORTER Nurse 09/17/2022 13:05:46 VITALS INFORMATION Vital Sign [...] iver verbalizes understanding of instructions given Comment: [facility] ED Note-Nursingon 09-17-2022 ED Note-Nursing arrived via private vehicle with c/o abd pain and intermitant nausea since lastnight lbm today. metformin for diabetes. vss. oriented to call light. [facility] ED Patient Summaryon [address] [facility] Emergency Department [address] [place], [place] [id number] PATIENT DISCHARGE INSTRUCTIONS Patient Information Name: JESSICA PITTMAN Age: 52 Years Date of : 1970 Reason For Visit: Abdominal pain; ABDOMINAL PAIN Arrival Time: 09/17/2022 12:55:44 Primary Care Physician: Provider, None Attending Physician: Raphael Moreno MD Comment: Visit Diagnosis: Diagnoses This Visit Abdominal pain ([id number]) Abdominal pain (R10.9) The Pharmacy at [facility] is open Tuesday through Tuesday from 9A [...] alcohol and/or drug addiction problems; contact the [facility] 04/10 Crisis Hotline -Text 9YNNH to [phone]. If you received any narcotics, sedation, or [...] and treatment you received today in the [facility] Emergency Department were for an urgent problem and are not intended as complete care. It is important for you to follow up with a doctor, nurse practitioner, or physician?s day care assistant for ongoing care. If your symptoms [...] so we can reach you if necessary. [facility] Emergency Department has provided you with a complete list of medications post discharge. Please inform your acquisitions editor/provider of your visit and for further instruction on these medications. Any specific questions regarding your chronic medications and dosages should be discussed with your primary care physician(s) and/or pharmacist. New Medications [id number], [address] [facility] [place], [place] [id number], [phone] dicyclomine (dicyclomine 20 mg oral tablet) 1 [...] as fried or sweet foods. These include bengali fries, (more content not included)... Normal [facility] POCT Glucose Levelon 023 Glucose [Mass/Vol] 132 mg/dL High 74-118 [facility] Comment on above: Performed By: #### 4 [id number] #### [facility] (DEFAULT) [address] [place] [address] XR Abdomen 2 Viewson 023 XR Abdomen [...] MD 09/17/22 2:06 pm Technologist: Efrem ASKEW [facility] XR foot RT min 3V*on 023 XR foot RT min 3V* [facility] Main [facility] [address] [place] [address] XRay Report Signed Patient: Jessica Pittman MR#: [id number] 91 : 1970 Acct:[id number] Age/Sex: 52 / M ADM Date: 04/02/22 Loc: ER Room: Type: [facility] ER Attending Dr: Copies to: [...] Nicole Jr., D.O.04/03/2022 10:53 AM Dictation Location: [place] [address] Transcribed By: [facility] 04/03/22 1053 Dictated By: Ra Nicole Jr, DO 04/03/22 1052 Signed By: 04/03/22 1053 [facility] Glucose Glucometer (BldC) [M ass/Vol]Ordered By: Miguel Ángel Portillo on 01-23-2022 Glucose [Mass/Vol] 150 mg/dL [facility] Comment on above: Random Glucose Refer ence Range is dependent on time and content of last meal. Glucose of more than 200 mg/dL in a nonstressed, ambulatory subject supports the diagnosis of Diabetes Mellitus. Glucose Poct Glucometerson 1 03-25-2021 Glucose [Mass/Vol] 150 mg/dL Normal [facility] Comment on above: Result Comment: [facility] Glucose Reference Range is dependent on time and content of last meal. Glucose of more than 200 mg/dL in a nonstressed, ambulatory subject supports the diagnosis of Diabetes Mellitus. PERFORMED BY: [facility] [address] [place] [address] PATHOLOGIST WATCH ELECTRICIAN ERICK ACEVEDO M.D. Performed By: #### G LULS #### Point of Care testing , Vital Signs Date Time Vital Sign Value Performing Clinician Rea morelos 01-06-2023 14:14-0400 Body height 195.58 cm [facility] Work Phone: [facility] 01-06-2023 14:14-0400 Body temperature 97.4 [degF] [facility] Work Phone: [facility] 01-06-2023 14:14-0400 Body weight 107.1 kg [facility] Work Phone: [facility] 01-06-2023 14:14-0400 Diastolic blood pressure 64 mm[Hg] [facility] Work Phone: [facility] 01-06-2023 14:14-0400 Heart rate 65 /min [facility] Work Phone: [facility] 01-06-2023 14:14-0400 Respiratory rate 14 /min [facility] Work Phone: [facility] 01-06-2023 14:14-0400 SaO2% (BldA) [Mass fraction] 100 % [facility] Work Phone: [facility] 01-06-2023 14:14-0400 Systolic blood pressure 132 mm[Hg] [facility] Work Phone: [facility] 11-26-2022 20:11-0400 Body height 195.58 cm [facility] Work Phone: [facility] 11-26-2022 20:11-0400 Body temperature 98.1 [degF] [facility] Work Phone: [facility] 11-26-2022 20:11-0400 Body weight 109.9 kg [facility] Work Phone: [facility] 11-26-2022 20:11-0400 Diastolic blood pressure 63 mm[Hg] [facility] Work Phone: [facility] 11-26-2022 20:11-0400 Heart rate 82 /min [facility] Work Phone: [facility] 11-26-2022 20:11-0400 Respiratory rate 18 /min [facility] Work Phone: [facility] 11-26-2022 20:11-0400 SaO2% (BldA) [Mass fraction] 100 % [facility] Work Phone: [facility] 11-26-2022 20:11-0400 Systolic blood pressure 117 mm[Hg] [facility] Work Phone: [facility] 09-22-2022 22:03-0400 Body height 195.58 cm [facility] Work Phone: [facility] 09-22-2022 22:03-0400 Body temperature 97.8 [degF] [facility] Work Phone: [facility] 09-22-2022 22:03-0400 Body weight 105.8 kg [facility] Work Phone: [facility] 09-22-2022 22:03-0400 Diastolic blood pressure 72 mm[Hg] [facility] Work Phone: [facility] 09-22-2022 22:03-0400 Heart rate 80 /min [facility] Work Phone: [facility] 09-22-2022 22:03-0400 Respiratory rate 18 /min [facility] Work Phone: [facility] 09-22-2022 22:03-0400 SaO2% (BldA) [Mass fraction] 100 % [facility] Work Phone: [facility] 09-22-2022 22:03-0400 Systolic blood pressure 133 mm[Hg] [facility] Work Phone: [facility] 04-13-2022 15:02-0500 Body height 195.58 cm TOY ASSEMBLER Miguel Ángel Lindsey Work Phone: [facility] 04-13-2022 15:02-0500 Body temperature 98.2 [degF] TOY ASSEMBLER Miguel Ángel Lindsey Work Phone: [facility] 04-13-2022 15:02-0500 Body weight 102.05 kg TOY ASSEMBLER Miguel Ángel Lindsey Work Phone: [facility] 04-13-2022 15:02-0500 Diastolic blood pressure 70 mm[Hg] TOY ASSEMBLER Miguel Ángel Lindsey Work Phone: [facility] 04-13-2022 15:02-0500 Heart rate 85 /min TOY ASSEMBLER Miguel Ángel Lindsey Work Phone: [facility] 04-13-2022 15:02-0500 Respiratory rate 18 /min TOY ASSEMBLER Miguel Ángel Lindsey Work Phone: [facility] 04-13-2022 15:02-0500 SaO2% (BldA) [Mass fraction] 100 % TOY ASSEMBLER Miguel Ángel Lindsey Work Phone: [facility] 04-13-2022 15:02-0500 Systolic blood pressure 107 mm[Hg] TOY ASSEMBLER Miguel Ángel Lindsey Work Phone: [facility] 04-03-2022 00:00-0500 Body height 195.58 cm TOY ASSEMBLER Miguel Ángel Lindsey Work Phone: [facility] 04-03-2022 00:00-0500 Body temperature 97.6 [degF] TOY ASSEMBLER Miguel Ángel Lindsey Work Phone: [facility] 04-03-2022 00:00-0500 Body weight 102.05 kg TOY ASSEMBLER Miguel Ángel Lindsey Work Phone: [facility] 04-03-2022 00:00-0500 Diastolic blood pressure 78 mm[Hg] TOY ASSEMBLER Miguel Ángel Lindsey Work Phone: [facility] 04-03-2022 00:00-0500 Heart rate 81 /min TOY ASSEMBLER Miguel Ángel Lindsey Work Phone: [facility] 04-03-2022 00:00-0500 Respiratory rate 18 /min TOY ASSEMBLER Miguel Ángel Lindsey Work Phone: [facility] 04-03-2022 00:00-0500 SaO2% (BldA) [Mass fraction] 99 % TOY ASSEMBLER Miguel Ángel Lindsey Work Phone: [facility] 04-03-2022 00:00-0500 Systolic blood pressure 130 mm[Hg] TOY ASSEMBLER Migule Ángel Lindsey Work Phone: [facility] 01-23-2022 08:55-0500 Body temperature 97.9 [degF] TOY ASSEMBLER Miguel Ángel Lindsey Work Phone: [facility] 01-23-2022 08:55-0500 Diastolic blood pressure 74 mm[Hg] TOY ASSEMBLER Miguel Ángel Lindsey Work Phone: [facility] 01-23-2022 08:55-0500 Heart rate 77 /min TOY ASSEMBLER Miguel Ángel Lindsey Work Phone: [facility] 01-23-2022 08:55-0500 Respiratory rate 18 /min TOY ASSEMBLER Miguel Ángel Portillo Work Phone: [facility] 01-23-2022 08:55-0500 SaO2% (BldA) [Mass fraction] 100 % TOY ASSEMBLER Miguel Ángel Portillo Work Phone: [facility] 01-23-2022 08:55-0500 Systolic blood pressure 118 mm[Hg] TOY ASSEMBLER Miguel Ángel Portillo Work Phone: [facility] 01-23-2022 08:53-0500 Body height 195.58 cm TOY ASSEMBLER Miguel Ángel Portillo Work Phone: [facility] 01-23-2022 08:53-0500 Body weight 104 kg TOY ASSEMBLER Miguel Ángel Portillo Work Phone: [facility] Encounters Encounter Date Encounter Type Care Provider Facility Start: 01-06-2023 End: 01-06-2023 Emergency department patient visit Helena Bhatti Facility:[facility] Start: 01-06-2023 End: 01-06-2023 Emergency department patient visit [facility] Work Phone: [facility] Work Phone: Start: 11-26-2022 End: 11-27-2022 Emergency department patient visit [facility] Facility:[facility] Start: 11-26-2022 End: 11-26-2022 Emergency department patient visit [facility] Work Phone: [facility] Work Phone: Start: 10-06-2022 End: 10-06-2022 Emergency department patient visit Miguel Ángel Lindsey Facility:[facility] Start: 10-01-2022 End: 10-01-2022 Emergency department patient visit Jose Nixon Facility:[facility] Start: 09-22-2022 End: 09-23-2022 Emergency department patient visit [facility] Facility:[facility] Start: 09-22-2022 End: 09-22-2022 Emergency department patient visit [facility] Work Phone: [facility] Work Phone: Start: 09-17-2022 End: 09-17-2022 Emergency department patient visit None Provider Facility:[facility] Start: 04-13-2022 End: 04-13-2022 [facility] Start: 04-13-2022 End: 04-13-2022 Emergency department patient visit FRANCO Portillo Work Phone: [facility] Work Phone: Start: 04-03-2022 End: 04-03-2022 Emergency [facility] Start: 04-02-2022 End: 04-03-2022 Emergency department patient visit FRANCO Portillo Work Phone: [facility] Work Phone: Start: 01-23-2022 End: 01-23-2022 Emergency [facility] Start: 01-23-2022 End: 01-23-2022 Emergency department patient visit FRANCO Portillo Work Phone: [facility] Procedures Date Procedure Procedure Detail Performing Clinician Start: 04-03-2022 X-ray of right foot APR N Miguel Ángel Portillo Work Phone: Plan of Treatment Date Care Activity Detail Author Start: 01-06-2023 Plain chest X-ray XR chest 2V* [facility] Start: 01-06-2023 XR Chest 2 Views [facility] Start: 04-03-2022 X-ray of right foot XR foot RT min 3 V* [facility] Start: 04-03-2022 XR Foot - right GE 3 Views [facility] Patient Education [facility] Work Phone: Patient referral [facility] Work Phone: Payers Date Payer Category Payer Private Health Insurance [id number] 2022 Private Health Insurance [id number] 2022 Self-pay [id number] 1970 Unknown [id number] 18 Unknown Regular Auto/Liability [id number] Unknown Insurance No Card [id number] Unknown [id number] [id number] 31 Unknown [id number] 2.16.840.1.085054.3.579.2.5 31 Unknown [id number] 2.16.840.1.790558.3.579.2.5 31 Unknown [id number] 2.16.840.1.155485.3.579.2.5 31 Unknown [id number] 2.16.840.1.064123.3.579.2.5 31 Unknown [id number] 2.16.840.1.893475.3.579.2.5 31 Unknown [id number] 2.16.840.1.588840.3.579.2.5 31 Unknown [id number] 2.16.840.1.344296.3.579.2.5 31 Social History Date Type Detail Facility Start: 01-23-2022 End: 01-06-2023 Tobacco smoking status NHIS Never smoked tobacco (finding) [facility] Start: 1970 Sex Assigned At Male F [facility] Clinical Note 09-17-2022 Note Date & [...] as fried or sweet foods. These include bengali fries, hamburgers, cookies, candies, and soda. ? Drink enough fluid to keep your urine pale yellow. General instructions ? Exercise regularly or as told by your health care provider. Try to do 150 minutes of moderate exercise each week. ? Use the bathroom when you have the urge to go. Do not hold it in. ? Take mlnt-bkz-kzxesii and prescription medicines only as told by [...] keep your urine pale yellow. ? Take xvpj-gqr-pooouta and prescription medicines only as told by your health care provider. This includes any fiber supplements. This information is not intended to replace advice given to you by your health care provider. Make sure you discuss any questions you have with your health care provider. Document Revised: 01/16/2020 Document Reviewed: 01/16/2020 [employer] Patient Education ? 2022 [employer] Abdominal Pain, Adult Pain in the [...] these instructions at home: Medicines ? Take oqpc-wfz-gxoupey and prescription medicines only as told by [...] condition for any (more content not included)... [facility] Evaluation note Note Date & Type Note Facility Evaluation note No assessment information availa ble [facility] Work Phone: Hospital Discharge instructions Note Date & Type Note Facility Hospital Discharge instructions Additional Instructions Stop the gabapentin(Neurontin) if you feel the Lyrica prescribed today. You must follow-up with health department next week for further evaluation and treatment. [facility] Work Phone: Hospital Discharge instructions Note Date & Type Note Facility Hospital Discharge instructions Additional Instructions If your symptoms return/worsen or you develop any further concerns or symptoms please see your doctor or return to the emergency department immediately. [facility] Work Phone: Hospital Discharge instructions Note Date & Type Note Facility Hospital Discharge instructions Additional Instructions Rest as needed Increase oral fluids May take dvsk-sms-yiwjpsn Mucinex or Coricidin for symptoms May do warm salt water gargles throat lozenges cough drops Follow-up with family doctor as needed Return to the ER for high fever difficulty breathing chest pain or any other concerns [facility] Work Phone: Chief Complaint and [...] Portillo APRN Emergency Provider Active [facility] Active Team Status: Active Member Role Status Dates [facility] Active Team Status: Inactive Member Role Status Dates [facility] Primary Care Provider Active Jose Nixon , Emergency Provider Active Team Status: Inactive Member Role Status Dates [facility] Active Miguel Ángel Portillo APRN Emergency Provider Active Team Status: Inactive Member Role Status Dates [facility] Active Preston Pike DO Emergency Provider Active Team Status: Inactive Member Role Status Dates [facility] Active Ivan Aleman PA-C Emergency Provider Active Team Status: Inactive Member Role Status Dates [facility] Primary Care Provider Active Helena Bhatti , [employer]ER- Emergency Provider Active Goals (unrecognized section and [...] section and content) DATE CREATED AUTHOR 09/25/2022 [facility] DATE CREATED AUTHOR AUTHOR'S ORGANIZ ATION 01/19/2023 [facility] FOR RECORDS PERTAINING TO PATIENTS WHO [...] BE BASED ON THE PRIMARY CLINICAL RECORDS. [employer] provides no warranty or guarantee of the accuracy or completeness of information in this document.
--- NOTE | 2023-04-21 07:15 | ED.EXTPRO1 ---
HPI - Extremity Problem General Chief complaint: Extremity Problem, Nontraumatic Stated complaint: RT FOOT PAIN Time Seen by Provider: 04/21/23 07:00 Source: patient Mode of arrival: walk-in Limitations: no limitations History of Present Illness HPI Narrative: Diabetic male with prior history of foot infection and surgical treatment with Dr Quintero presents with increasing pain and swelling to the right foot. Patient first noticed symptoms just under a week ago. Yesterday he had some dry skin on the plantar surface near the 1st MTP peel off . He said that the pain and swelling increased quite a bit overnight, so his significant other convinced him to come to the ED for evaluation. No systemic symptoms such as fever or chills. He did not call or notify Dr Quintero. Related Data Home Medications Medication Instructions Recorded Confirmed metformin 1,000 mg tablet 1,000 mg PO BID 02/24/23 02/24/23 Previous Rx's Medication Instructions Recorded amoxicillin 875 mg-potassium 1 tab PO BID #14 tabs 04/21/23 clavulanate 125 mg tablet nabumetone 750 mg tablet 750 mg PO BID PRN pain #14 tabs 04/21/23 sulfamethoxazole 800 1 tab PO BID 7 days #14 tabs 04/21/23 mg-trimethoprim 160 mg tablet (Bactrim DS) Allergies Allergy/AdvReac Type Severity Reaction Status Date / Time No Known Drug Allergies Allergy Verified 04/21/23 07:06 [facility] Medical History (Updated 04/21/23 @ 08:07 by René Falcon) Gastroenteritis ?K52.9 - Noninfective gastroenteritis and colitis, unspecified (ICD-10) Hyperlipidemia ?E78.5 - Hyperlipidemia, unspecified (ICD-10) Diabetes ?E11.9 - Type 2 diabetes mellitus without complications (ICD-10) Diabetic acidosis, type II ?E11.10 - Type 2 diabetes mellitus with ketoacidosis without coma (ICD-10) Family History (Updated 02/24/23 @ 05:16 by Donna Vick) Brother Family history of diabetes mellitus Aunt Family history of diabetes mellitus Social History (Updated 02/24/23 @ 05:18 by Donna Vick) Within the past year, how often did you have a drink containing alcohol: never Within the past year, how often did you have six or more drinks on one occasion: never Score interpretation: A score less than 4 is consistent with normal alcohol consumption. 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 Known occupational exposures/hazards: No Highest level of school completed/degree received: high school graduate Are you now , , , , never or living with a partner: living with partner In a typical week, how many times do you talk on the telephone with family, friends, or neighbors: 3 or more times per week How often do you get together with friends or relatives: 3 or more times per week How often do you attend evangelical or christian services: never Do you belong to any clubs or organizations such as evangelical groups unions, [employer] [facility] [employer] or athletic groups, or school groups: no Total score: 2 Score interpretation: A score of greater than or equal to 2 indicates the lowest level of social isolation. Little interest or pleasure in doing things: not at all Feeling down, depressed, or hopeless: not at all Feel stressed/tense/nervous/anxious/difficulty sleeping: not at all Due to disability, difficulty making decisions: No Do you think of yourself as: straight/heterosexual Gender Identity: male Exam Narrative Exam Narrative: Nurses notes and vital signs reviewed and patient is not hypoxic. afebrile General: Well-appearing and in no apparent distress. Skin: Warm, dry, no pallor noted. Eye: Pupils are equal, round and EOMI. No scleral icterus. Cardiovascular: Regular Rate and Rhythm without murmur, gallop or rub. Respiratory: No accessory muscle use or respiratory distress. Lungs are clear to auscultation, no wheezing, rales or rhonchi Musculoskeletal: RIGHT FOOT = tenderness and swelling along the right 5th metatarsal. Skin loss on the callous at the plantar 5th MTP and the plantar 1st MTP. Right LE with normal ROM, no calf or popliteal tenderness, no lower extremity edema/swelling except at right foot. GI: Abdomen is soft, non-distended. Normal bowel sounds. No tenderness to palpation. No rebound, guarding, or rigidity noted. Neurological: A&O x4. No cranial nerve dysfunction observed. No truncal ataxia. Moves all extremities. Sensation intact. Psychiatric: Cooperative and interactive. Normal mood and affect. Constitutional Vital Signs, click to edit/add: Last Vital Signs Temp 98.4 F 04/21/23 07:00 Pulse 86 04/21/23 07:00 Resp 18 04/21/23 07:00 BP 141/85 04/21/23 07:00 Pulse Ox 100 04/21/23 07:00 O2 Del Method Room Air 04/21/23 07:00 Course Vital Signs Vital signs: Vital Signs Temperature 98.4 F 04/21/23 07:00 Pulse Rate 86 04/21/23 07:00 Respiratory Rate 18 04/21/23 07:00 Blood Pressure 141/85 04/21/23 07:00 Pulse Oximetry 100 04/21/23 07:00 Oxygen Delivery Method Room Air 04/21/23 07:00 Temperature 98.4 F 04/21/23 07:00 Pulse Rate 86 04/21/23 07:00 Respiratory Rate 18 04/21/23 07:00 Blood Pressure 141/85 04/21/23 07:00 Pulse Oximetry 100 04/21/23 07:00 Oxygen Delivery Method Room Air 04/21/23 07:00 MDM - Extremity (Nontraumatic) MDM Narrative Medical decision making narrative: Peripheral IV started and blood drawn and sent for testing including sed rate and CRP. The patient was sent for x-rays of the right foot. The patient was ordered to receive a single dose of IV Zosyn and IV vancomycin. WBC normal. BUN & Cr slightly elevated at 19, 1.35. ESR elevated at 30. CRP normal at <0.5. No osteo or bony abnormality of foot xrays. At this point the patient's symptoms are mild to moderate however I want to be aggressive with his history of previous surgery secondary to infection. As a diabetic he is at increased risk of rapidly developing infection. He will go home with prescriptions for Augmentin and Bactrim and close follow-up with podiatry -I encouraged him to call Dr. Quintero's office today to schedule soonest follow-up appointment available. ED return if he worsens. Lab Data Attestation: I reviewed the patient's lab results. Labs: Lab Results 04/21/23 Range/Units 07:22 WBC 7.3 (4.0-11.0) 10^3/uL RBC 4.06 L (4.70-6.10) 10^6/uL Hgb 11.8 L (14.0-18.0) g/dL Hct 35.5 L (42.0-54.0) % MCV 87.4 (80.0-94.0) fL MCH 29.1 (25.9-34.0) pg MCHC 33.2 (29.9-35.2) g/dL RDW 11.9 (11.0-15.0) % Plt Count 268 (150-450) 10^3/uL MPV 8.8 L (9.5-13.5) fL Neut % (Auto) 46.8 (43.0-75.0) % Lymph % (Auto) 42.4 (20.5-60.0) % Barber % (Auto) 8.5 (1.7-12.0) % Eos % (Auto) 1.5 (0.9-7.0) % Baso % (Auto) 0.7 (0.2-2.0) % Neut # (Auto) 3.4 (1.4-6.5) 10^3/uL Lymph # (Auto) 3.1 (1.2-3.8) 10^3/uL Barber # (Auto) 0.6 (0.3-0.8) 10^3/uL Eos # (Auto) 0.1 (0.0-0.7) 10^3/uL Baso # (Auto) 0.1 (0.0-0.1) 10^3/uL Abs Immat Gran (auto) 0.01 (0.00-0.03) 10^3/uL Imm/Tot Granulo (auto) 0.1 (0.0-0.5) % ESR 30 H (<=20) mm/hr Sodium 141 (136-145) mmol/L Potassium 3.8 (3.5-5.1) mmol/L Chloride 104 (98-107) mmol/L Carbon Dioxide 31.7 (21.0-32.0) mmol/L Anion Gap 9.1 BUN 19.0 H (7.0-18.0) mg/dL Creatinine 1.35 H (0.70-1.30) mg/dL Est GFR ( Amer) >60 (>=60) Est GFR (Non-Af Amer) 56 L (>=60) BUN/Creatinine Ratio 14.1 Glucose 119 H (74-106) mg/dL Calcium 9.1 (8.5-10.1) mg/dL C-Reactive Protein <0.50 (<=0.50) mg/dL Imaging Data xr foot: Radiologist's impression: ITS Impressions Foot X-Ray 04/21/23 07:45 IMPRESSION: No acute abnormality Electronically authenticated by: DHARMESH NOYOLA Date: 04/21/2023 08:02 Discharge Plan Discharge Chief Complaint: Extremity Problem, Nontraumatic Clinical Impression: Cellulitis of foot, right Patient Disposition: Home, Self-Care Time of Disposition Decision: 08:07 Prescriptions / Home Meds: New sulfamethoxazole-trimethoprim [Bactrim DS] 800-160 mg tablet 1 tab PO BID 7 Days Qty: 14 0RF amoxicillin-pot clavulanate 875-125 mg tablet 1 tab PO BID Qty: 14 0RF nabumetone 750 mg tablet 750 mg PO BID PRN (Reason: pain) Qty: 14 0RF No Action metformin 1,000 mg tablet 1,000 mg PO BID Patient Comments: last filled 09/11/22 for 90 days Instructions: Cellulitis (ED) Stand Alone Forms: Portal Instructions Referrals: Physician,Non-Staff, MD [Primary Care Provider] - 1 week
[2023-04-21 07:29] LABS: Basophils Absolute Auto 0.1 10^3/uL (0.0-0.1); Basophils Percent Auto 0.7 % (0.2-2.0); Eosinophils Absolute Auto 0.1 10^3/uL (0.0-0.7); Eosinophils Percent Auto 1.5 % (0.9-7.0); Hematocrit 35.5 % (42.0-54.0); Hemoglobin 11.8 g/dL (14.0-18.0); Immature Granulocytes Abs Auto 0.01 10^3/uL (0.00-0.03); Immature Granulocytes Pct Auto 0.1 % (0.0-0.5); Lymphocytes Absolute Auto 3.1 10^3/uL (1.2-3.8); Lymphocytes Percent Auto 42.4 % (20.5-60.0); Mean Corpuscular HGB Conc 33.2 g/dL (29.9-35.2); Mean Corpuscular Hemoglobin 29.1 pg (25.9-34.0); Mean Corpuscular Volume 87.4 fL (80.0-94.0); Mean Platelet Volume 8.8 fL (9.5-13.5); Monocytes Absolute Auto 0.6 10^3/uL (0.3-0.8); Monocytes Percent Auto 8.5 % (1.7-12.0); Neutrophils Absolute Auto 3.4 10^3/uL (1.4-6.5); Neutrophils Percent Auto 46.8 % (43.0-75.0); Platelet Count 268 10^3/uL (150-450); Red Blood Count 4.06 10^6/uL (4.70-6.10); Red Cell Distribution Width 11.9 % (11.0-15.0); White Blood Count 7.3 10^3/uL (4.0-11.0)
[2023-04-21] MEDS: VANCOMYCIN HCL 1,000 MG in 0.9 % SODIUM CHLORIDE 250 ML 250 MG IV (07:33)
[2023-04-21 07:42] LABS: Anion Gap 9.1; BUN Creatinine Ratio 14.1; Calcium 9.1 mg/dL (8.5-10.1); Carbon Dioxide 31.7 mmol/L (21.0-32.0); Chloride 104 mmol/L (98-107); Estimated GFR (African America >60 (>=60); Estimated GFR (Non-African Ame 56 (>=60); Glucose 119 mg/dL (74-106); Potassium 3.8 mmol/L (3.5-5.1); Sodium 141 mmol/L (136-145)
--- NOTE | 2023-04-21 07:45 | XR_ITS ---
The [address] [address] Patient Name: JESSICA PITTMAN MRN: [id number] date: 1970 Sex: M Assigned Patient Location: ER Current Patient Location: ER Accession/Order Number: [id number] Exam Date: 04/21/2023 07:40 Report Date: 04/21/2023 08:02 At the request of: MANJIT TONEY Procedure: XR foot RT min 3V PROCEDURE: XR foot RT min 3V COMPARISON: 02/23/2023 HISTORY: right foot pain and swelling FINDINGS: BONES:No fracture, acute abnormality, or significant arthropathy. SOFT TISSUES:Negative. No visible soft tissue swelling. EFFUSION:None visible. OTHER: Negative. XR/XR foot RT min 3V IMPRESSION: No acute abnormality Electronically authenticated by: DHARMESH NOYOLA Date: 04/21/2023 08:02
[2023-04-21 07:47] LABS: Erythrocyte Sedimentation Rate 30 mm/hr (<=20)
[2023-04-21 07:56] LABS: C Reactive Protein <0.50 mg/dL (<=0.50)
[2023-04-21] MEDS: PIPERACILLIN SODIUM/TAZOBACTAM 4.5 GM in 0.9 % SODIUM CHLORIDE 50 ML IV (08:32)
== END 2023-04-21 09:06 | disposition home or self-care (01) ==
PROVIDERS: Emergency Provider Emergency Medicine
DX: L03.115 Cellulitis of right lower limb (principal); E11.9 Type 2 diabetes mellitus without complications; Z79.84 Long term (current) use of oral hypoglycemic drugs; E78.5 Hyperlipidemia, unspecified
CPT/HCPCS: 36415; 73630; 80048; 85025; 85652; 86140; 96365; 96367; 99284; J2543; J3370

== ENCOUNTER 2023-04-25 15:38 | Outpatient (OUT) | payer OTHER, SELFPAY ==
--- OUTSIDE RECORDS SUMMARY | 2023-04-25 16:01 | XMS_ITS | CCD ---
Author Name Unknown Address [address] [place] [address] Organization [facility] Care Team Providers Care Insulator Tester Name Role Phone FRANCO Portillo Emergency Provider [facility], [facility] Primary Care Provider [phone] DO Jose Nixon Emergency Provider [phone] [facility] Primary Care Provider DO Preston Pike Emergency Provider Provider, None Primary Care Unavailable Madeleine Kapadia Attending Unavailable Madeleine Kapadia Admitting Unavailable [facility] Primary Care Provider [phone] KELSIE Aleman Emergency Provider Davy [facility] Helena Luke Emergency Provider [facility], [facility] Primary Care Unavailable Ivan Aleman Admitting Unavailable Ivan Aleman Attending Unavailable Helena Bhatti Attending Unavailable [facility], [facility] Primary Care Unavailable Lola Bhattier E Admitting Unavailable [facility], [facility] Primary Care Unavailable Preston Pike Admitting Unavailable Preston Pike Attending Unavailable [facility] Primary Care Unavailable Miguel Ángel Portillo Admitting Unavailable Miguel Ángel Portillo Attending Unavailable [facility] Primary Care Unavailable Jose Nixon Admitting Unavailable Jose Nixon Attending Unavailable [facility] Primary Care Unavailable Miguel Ángel Portillo Admitting Unavailable Miguel Ángel Portillo Attending Unavailable Tiffani, Jose A Admitting Unavailable KeisterJose Attending Unavailable [facility], [facility] Primary Care Unavailable Miguel Ángel Portillo Admitting Unavailable Miguel Ángel Portillo Attending [facility] Primary Care Unavailable Allergies Allergy Classification Reported Allergen(s) Allergy Type Date of Onset Reaction(s) Facility (1 source) No Known Medication Allergies; Translations: [No Known Medication Allergies] Propensity to adverse reactions to drug (disorder) [facility] Medications Current Medications Medication Drug Class(es) [...] XR chest 2V*on 01-06-2023 XR chest 2V* [place] [address] XRay Report Signed Patient: Jessica Pittman MR#: [id number] 91 : 1970 Acct:[id number] Age/Sex: 52 / M ADM Date: 01/06/23 Loc: ER Room: Type: [facility] ER Attending Dr: Copies to: LUTHER Holm Ordering Provider: LUTHER Holm Date of Service: 01/06/23 XR/XR chest 2V*: Upper Respiratory Infection PA AND LATERAL CHEST: CLINICAL HISTORY: Body aches, chills and productive cough and diarrhea COMPARISON: 10/29/2006 The nodular asymmetry at the right lower lung is not obvious on the comparison chest x-ray though is seen on meat packer view from an abdominal CT from December 30, 20192013. There is no focal parenchymal consolidation, effusion or pneumothorax. The cardiac, hilar and mediastinal silhouettes are within normal limits. There is no vascular congestion. The visualized bony thorax is intact. Endplate spurring is present. XR/XR chest 2V* IMPRESSION: NO ACUTE CARDIOPULMONARY ABNORMALITY. Impression dictated by: Amy Quiles M.D.01/06/2023 3:05 PM Dictation Location: [place] [address] Transcribed By: [facility] 01/06/23 1505 Dictated By: Amy Quiles MD 01/06/23 1502 Signed By: 01/06/23 1505 Normal [facility] Complete Blood Count Auto Di ffon 10-06-2022 Basophils (Bld) [#/Vol] 0.0 10*3/uL Normal 0.0-0.2 [facility] Comment on above: Performed By: #### H EPATIC, LIPASE, CBC, ESR, CMP ####[address] Basophils/100 WBC (Bld) 0.7 % Normal . [facility] Comment on above: Performed By: #### H EPATIC, LIPASE, CBC, ESR, CMP ####[address] Eosinophils (Bld) [#/Vol] 0.2 10*3/uL Normal 0.0-0.45 [facility] Comment on above: Performed By: #### H EPATIC, LIPASE, CBC, ESR, CMP ####[address] Eosinophils/100 WBC (Bld) 3.2 % Normal . [facility] Comment on above: Performed By: #### H EPATIC, LIPASE, CBC, ESR, CMP ####[address] Erythrocyte distribution width (RBC) [Ratio] 12.8 % Normal 12.0-14.8 [facility] Comment on above: Performed By: #### H EPATIC, LIPASE, CBC, ESR, CMP ####[address] Hematocrit (Bld) [Volume fraction] 38.9 % Normal 38.8-50.0 [facility] Comment on above: Performed By: #### H EPATIC, LIPASE, CBC, ESR, CMP ####[address] Hemoglobin (Bld) [Mass/Vol] 13.2 g/dL Normal 13.0-17.0 [facility] Comment on above: Performed By: #### H EPATIC, LIPASE, CBC, ESR, CMP ####[address] Lymphocytes (Bld) [#/Vol] 2.3 10*3/uL Normal 1.00-4.8 [facility] Comment on above: Performed By: #### H EPATIC, LIPASE, CBC, ESR, CMP ####[address] Lymphocytes/100 WBC (Bld) 35.1 % Normal . [facility] Comment on above: Performed By: #### H EPATIC, LIPASE, CBC, ESR, CMP ####[address] MCH (RBC) [Entitic mass] 30.2 pg Normal 27.5-35.2 [facility] Comment on above: Performed By: #### H EPATIC, LIPASE, CBC, ESR, CMP ####[address] MCV (RBC) [Entitic vol] 89.2 fL Normal 83.5-101 [facility] Comment on above: Performed By: #### H EPATIC, LIPASE, CBC, ESR, CMP ####[address] Mean Corpuscular HGB Conc 33.9 g/dL Normal 32.5-35.6 [facility] Comment on above: Performed By: #### H EPATIC, LIPASE, CBC, ESR, CMP ####[address] Monocytes (Bld) [#/Vol] 0.6 10*3/uL Normal 0.0-0.8 [facility] Comment on above: Performed By: #### H EPATIC, LIPASE, CBC, ESR, CMP ####[place] [address] Monocytes/100 WBC (Bld) 16.18 % Normal 0.00-20.00 [facility] Comment on above: Performed By: #### H EPATIC, LIPASE, CBC, ESR, CMP ####[address] Monocytes/100 WBC (Bld) 8.7 % Normal . [facility] Comment on above: Performed By: #### H EPATIC, LIPASE, CBC, ESR, CMP ####[address] Neutrophils (Bld) [#/Vol] 3.4 10*3/uL Normal 1.8-7.7 [facility] Comment on above: Performed By: #### H EPATIC, LIPASE, CBC, ESR, CMP ####[address] Neutrophils/100 WBC (Bld) 52.3 % Normal . [facility] Comment on above: Performed By: #### H EPATIC, LIPASE, CBC, ESR, CMP ####[address] NRBC% 0.1 /100{WBC} Normal 0-0.5 [facility] Comment on above: Performed By: #### H EPATIC, LIPASE, CBC, ESR, CMP ####[address] Platelet mean volume (Bld) [Entitic vol] 7.2 fL Normal 6.6-10.1 [facility] Comment on above: Performed By: #### H EPATIC, LIPASE, CBC, ESR, CMP ####[address] Platelets (Bld) [#/Vol] 279 10*3/uL Normal 150-450 [facility] Comment on above: Performed By: #### H EPATIC, LIPASE, CBC, ESR, CMP ####[address] RBC (Bld) [#/Vol] 4.37 10*6/uL Normal 3.90-5.60 [facility] Comment on above: Performed By: #### H EPATIC, LIPASE, CBC, ESR, CMP ####[facility] [address] WBC (Bld) [#/Vol] 6.6 10*3/uL Normal 4.1-10.5 [facility] Comment on above: Performed By: #### H EPATIC, LIPASE, CBC, ESR, CMP ####[facility] Comprehensive Metabolic Pane ofe 10-06-2022 Albumin [Mass/Vol] 4.8 g/dL Normal 3.5-5.7 [facility] Comment on above: Performed By: #### H EPATIC, LIPASE, CBC, ESR, CMP #### [facility] [address] Albumin/Globulin [Mass ratio] 1.5 {ratio} Normal [facility] Comment on above: Performed By: #### H EPATIC, LIPASE, CBC, ESR, CMP #### [facility] [address] ALP [Catalytic activity/Vol] 110 U/L High 34-104 [facility] Comment on above: Performed By: #### H EPATIC, LIPASE, CBC, ESR, CMP #### [facility] [address] ALT [Catalytic activity/Vol] 42 U/L Normal 7-52 [facility] Comment on above: Performed By: #### H EPATIC, LIPASE, CBC, ESR, CMP #### [facility] [address] Anion gap [Moles/Vol] 9.1 mmol/L Normal 6.0-15.0 [facility] Comment on above: Performed By: #### H EPATIC, LIPASE, CBC, ESR, CMP #### [facility] [address] AST [Catalytic activity/Vol] 29 U/L Normal 13-39 [facility] Comment on above: Performed By: #### H EPATIC, LIPASE, CBC, ESR, CMP #### [address] Bilirubin [Mass/Vol] 0.4 mg/dL Normal 0.3-1.0 [facility] Comment on above: Performed By: #### H EPATIC, LIPASE, CBC, ESR, CMP #### [address] Calcium [Mass/Vol] 9.6 mg/dL Normal 8.6-10.3 [facility] Comment on above: Performed By: #### H EPATIC, LIPASE, CBC, ESR, CMP #### [address] Chloride [Moles/Vol] 106 mmol/L Normal 98-107 [facility] Comment on above: Performed By: #### H EPATIC, LIPASE, CBC, ESR, CMP #### [address] CO2 [Moles/Vol] 26.7 mmol/L Normal 21.0-31.0 [facility] Comment on above: Performed By: #### H EPATIC, LIPASE, CBC, ESR, CMP #### [address] Creatinine [Mass/Vol] 1.05 mg/dL Normal 0.70-1.30 [facility] Comment on above: Performed By: #### H EPATIC, LIPASE, CBC, ESR, CMP #### [address] Creatinine Clr Calc Pharmacy 106.07 [facility] Comment on above: Performed By: #### H EPATIC, LIPASE, CBC, ESR, CMP #### [address] GFR/1.73 sq M.predicted MDRD (S/P/Bld) [Vol rate/Area] mL/min/{1.73_m2} [facility] Comment on above: Performed By: #### H EPATIC, LIPASE, CBC, ESR, CMP #### [facility] [address] Globulin (S) [Mass/Vol] 3.2 g/dL Normal [facility] Comment on above: Performed By: #### H EPATIC, LIPASE, CBC, ESR, CMP #### [facility] [address] Glucose [Mass/Vol] 160 mg/dL High 70-100 [facility] Comment on above: Result Comment: [facility] Glucose Reference Range is dependent on time and content of last meal. Glucose of more than 200 mg/dL in a nonstressed, ambulatory subject supports the diagnosis of Diabetes Mellitus. ADA recommended reference range Performed By: #### H EPATIC, LIPASE, CBC, ESR, CMP #### [facility] [address] Potassium [Moles/Vol] 3.8 mmol/L Normal 3.5-5.1 [facility] Comment on above: Performed By: #### H EPATIC, LIPASE, CBC, ESR, CMP #### [facility] [address] Protein [Mass/Vol] 8.0 g/dL Normal 6.4-8.9 [facility] Comment on above: Performed By: #### H EPATIC, LIPASE, CBC, ESR, CMP #### [address] Sodium [Moles/Vol] 138 mmol/L Normal 136-145 [facility] Comment on above: Performed By: #### H EPATIC, LIPASE, CBC, ESR, CMP #### [facility] [address] Urea nitrogen [Mass/Vol] 12 mg/dL Normal 7-25 [facility] Comment on above: Performed By: #### H EPATIC, LIPASE, CBC, ESR, CMP #### [facility] [address] Erythrocyte Sedimentation Ra mahsa 10-06-2022 ESR (Bld) [Velocity] 15 mm/h Normal 0-19 [facility] Comment on above: Result Comment: PERF ORMED BY: [facility] [address] [place] [address] PATHOLOGIST TUBER MACHINE OPERATOR HELPER ERICK ACEVEDO M.D. Performed By: #### H EPATIC, LIPASE, CBC, ESR, CMP ####[address] Hepatic Panelon 10-06-2022 Bilirubin,Indirect 0.3 mg/dL Normal [facility] Comment on above: Performed By: #### H EPATIC, LIPASE, CBC, ESR, CMP #### [facility] [address] Bilirubin.indirect [Mass/Vol] 0.10 mg/dL Normal 0.03-0.18 [facility] Comment on above: Performed By: #### H EPATIC, LIPASE, CBC, ESR, CMP #### [address] Lipaseon 10-06-2022 Lipase [Catalytic activity/Vol] 65.0 U/L Normal 11.0-82.0 [facility] Comment on above: Result Comment: PERF ORMED BY: [place] [address] PATHOLOGIST TUBER MACHINE OPERATOR HELPER ERICK ACEVEDO M.D. Performed By: #### H EPATIC, LIPASE, CBC, ESR, CMP ####[address] Basic Metabolic Panelon 09-12 Anion gap [Moles/Vol] 9.2 mmol/L Normal 6.0-15.0 [facility] Comment on above: Performed By: #### C BC, HEPATIC, BMP, LIPASE #### [address] Calcium [Mass/Vol] 9.6 mg/dL Normal 8.6-10.3 [facility] Comment on above: Performed By: #### C BC, HEPATIC, BMP, LIPASE #### [address] Chloride [Moles/Vol] 105 mmol/L Normal 98-107 [facility] Comment on above: Performed By: #### C BC, HEPATIC, BMP, LIPASE #### [facility] [address] CO2 [Moles/Vol] 27.9 mmol/L Normal 21.0-31.0 [facility] Comment on above: Performed By: #### C BC, HEPATIC, BMP, LIPASE #### [facility] [address] Creatinine [Mass/Vol] 1.17 mg/dL Normal 0.70-1.30 [facility] Comment on above: Performed By: #### C BC, HEPATIC, BMP, LIPASE #### [facility] [address] Creatinine Clr Calc Pharmacy 103.27 [facility] Comment on above: Performed By: #### C BC, HEPATIC, BMP, LIPASE #### [facility] [address] [place] [address] [place] GFR/1.73 sq M.predicted MDRD (S/P/Bld) [Vol rate/Area] mL/min/{1.73_m2} [facility] Comment on above: Performed By: #### C BC, HEPATIC, BMP, LIPASE #### [address] Glucose [Mass/Vol] 140 mg/dL High 70-100 [facility] Comment on above: Result Comment: [place] Glucose Reference Range is dependent on time and content of last meal. Glucose of more than 200 mg/dL in a nonstressed, ambulatory subject supports the diagnosis of Diabetes Mellitus. ADA recommended reference range Performed By: #### C BC, HEPATIC, BMP, LIPASE #### [facility] [address] Potassium [Moles/Vol] 4.1 mmol/L Normal 3.5-5.1 [facility] Comment on above: Performed By: #### C BC, HEPATIC, BMP, LIPASE #### [facility] [address] [place] [address] [place] Sodium [Moles/Vol] 138 mmol/L Normal 136-145 [facility] Comment on above: Performed By: #### C BC, HEPATIC, BMP, LIPASE #### [facility] [address] Urea nitrogen [Mass/Vol] 11 mg/dL Normal 7-25 [facility] Comment on above: Performed By: #### C BC, HEPATIC, BMP, LIPASE #### [facility] [address] abdomen pelvis w conon CT abdomen pelvis w con [facility] [place] [address] [place] [address] CT Scan Report Signed Patient: Jessica Pittman MR#: [id number] 91 : 1970 Acct:[id number] Age/Sex: 52 / M ADM Date: 10/01/22 Loc: ER Room: Type: [facility] ER Attending Dr: Copies to: Jose [...] Teofilo Ulloa M.D.10/01/2022 5:38 PM Dictation Location: [place] [address] Transcribed By: [facility] 10/01/22 173 Dictated By: Teofilo Ulloa II, MD 10/01/22 172 Signed By: 10/01/22 173 Normal [facility] Complete Blood Count Auto Di ffon 10-01-2022 Basophils (Bld) [#/Vol] 0.1 10*3/uL Normal 0.0-0.2 [facility] Comment on above: Result Comment: PERF ORMED BY: [place] [address] PATHOLOGIST TUBER MACHINE OPERATOR HELPER ERICK ACEVEDO M.D. Performed By: #### C BC, HEPATIC, BMP, LIPASE #### [address] Basophils/100 WBC (Bld) 0.7 % Normal . [facility] Comment on above: Performed By: #### C BC, HEPATIC, BMP, LIPASE #### [facility] [address] Eosinophils (Bld) [#/Vol] 0.1 10*3/uL Normal 0.0-0.45 [facility] Comment on above: Performed By: #### C BC, HEPATIC, BMP, LIPASE #### [facility] [address] [place] [address] [place] Eosinophils/100 WBC (Bld) 1.2 % Normal . [facility] Comment on above: Performed By: #### C BC, HEPATIC, BMP, LIPASE #### [address] Erythrocyte distribution width (RBC) [Ratio] 12.8 % Normal 12.0-14.8 [facility] Comment on above: Performed By: #### C BC, HEPATIC, BMP, LIPASE #### [address] Hematocrit (Bld) [Volume fraction] 40.4 % Normal 38.8-50.0 [facility] Comment on above: Performed By: #### C BC, HEPATIC, BMP, LIPASE #### [address] Hemoglobin (Bld) [Mass/Vol] 13.4 g/dL Normal 13.0-17.0 [facility] Comment on above: Performed By: #### C BC, HEPATIC, BMP, LIPASE #### [address] Lymphocytes (Bld) [#/Vol] 1.9 10*3/uL Normal 1.00-4.8 [facility] Comment on above: Performed By: #### C BC, HEPATIC, BMP, LIPASE #### [address] Lymphocytes/100 WBC (Bld) 21.4 % Normal . [facility] Comment on above: Performed By: #### C BC, HEPATIC, BMP, LIPASE #### [address] MCH (RBC) [Entitic mass] 29.7 pg Normal 27.5-35.2 [facility] Comment on above: Performed By: #### C BC, HEPATIC, BMP, LIPASE #### [address] MCV (RBC) [Entitic vol] 89.7 fL Normal 83.5-101 [facility] Comment on above: Performed By: #### C BC, HEPATIC, BMP, LIPASE #### [address] Mean Corpuscular HGB Conc 33.1 g/dL Normal 32.5-35.6 [facility] Comment on above: Performed By: #### C BC, HEPATIC, BMP, LIPASE #### [address] [place] [address] [place] Monocytes (Bld) [#/Vol] 0.8 10*3/uL Normal 0.0-0.8 [facility] Comment on above: Performed By: #### C BC, HEPATIC, BMP, LIPASE #### [facility] [address] [place] [address] [place] Monocytes/100 WBC (Bld) 15.24 % Normal 0.00-20.00 [facility] Comment on above: Performed By: #### C BC, HEPATIC, BMP, LIPASE #### [facility] [address] [place] [address] [place] Monocytes/100 WBC (Bld) 9.5 % Normal . [facility] Comment on above: Performed By: #### C BC, HEPATIC, BMP, LIPASE #### [facility] [address] [place] [address] Neutrophils (Bld) [#/Vol] 5.9 10*3/uL Normal 1.8-7.7 [facility] Comment on above: Performed By: #### C BC, HEPATIC, BMP, LIPASE #### [facility] [address] [place] [address] Neutrophils/100 WBC (Bld) 67.2 % Normal . [facility] Comment on above: Performed By: #### C BC, HEPATIC, BMP, LIPASE #### [facility] [address] [place] [address] [place] NRBC% 0.1 /100{WBC} Normal 0-0.5 [facility] Comment on above: Performed By: #### C BC, HEPATIC, BMP, LIPASE #### [facility] [address] [place] [address] [place] Platelet mean volume (Bld) [Entitic vol] 7.1 fL Normal 6.6-10.1 [facility] Comment on above: Performed By: #### C BC, HEPATIC, BMP, LIPASE #### [facility] [address] [place] [address] [place] Platelets (Bld) [#/Vol] 291 10*3/uL Normal 150-450 [facility] Comment on above: Performed By: #### C BC, HEPATIC, BMP, LIPASE #### [facility] [address] RBC (Bld) [#/Vol] 4.51 10*6/uL Normal 3.90-5.60 [facility] Comment on above: Performed By: #### C BC, HEPATIC, BMP, LIPASE #### [facility] [address] WBC (Bld) [#/Vol] 8.8 10*3/uL Normal 4.1-10.5 [facility] Comment on above: Performed By: #### C BC, HEPATIC, BMP, LIPASE #### [facility] [address] Dipstick and Microscopicon 0 10-01-2022 Appearance (U) Clear Normal Clear [facility] Comment on above: Order Comment: Name Collection Type:: Clean-Voided Midstream Performed By: #### A DDONUAPLUS ####[address] Bacteria,Urine None Seen Normal None Seen [facility] Comment on above: Order Comment: Name Collection Type:: Clean-Voided Midstream Performed By: #### A DDONUAPLUS ####[address] Bilirubin,Urine Negative Normal Negative [facility] Comment on above: Order Comment: Name Collection Type:: Clean-Voided Midstream Performed By: #### A DDONUAPLUS ####[address] Color (U) Yellow Normal Yellow [facility] Comment on above: Order Comment: Name Collection Type:: Clean-Voided Midstream Performed By: #### A DDONUAPLUS ####[address] Glucose Ql (U) 100 mg/dL High Normal [facility] Comment on above: Order Comment: Name Collection Type:: Clean-Voided Midstream Performed By: #### A DDONUAPLUS ####[address] [place] [address] [place] Hyaline Casts,Urine None Seen Normal 0-8 [facility] Comment on above: Order Comment: Name Collection Type:: Clean-Voided Midstream Performed By: #### A DDONUAPLUS ####[address] [address] [facility] Ketones Ql (U) Negative Normal Negative [facility] Comment on above: Order Comment: Name Collection Type:: Clean-Voided Midstream Performed By: #### A DDONUAPLUS ####[address] [address] [facility] Leukocyte esterase Test strip Ql (U) 2+ High Negative [facility] Comment on above: Order Comment: Name Collection Type:: Clean-Voided Midstream Performed By: #### A DDONUAPLUS ####[address] [address] [facility] Nitrite,Urine Negative Normal Negative [facility] Comment on above: Order Comment: Name Collection Type:: Clean-Voided Midstream Performed By: #### A DDONUAPLUS ####[address] [address] [place] Occult Blood,Urine Negative Normal Negative [facility] Comment on above: Order Comment: Name Collection Type:: Clean-Voided Midstream Result Comment: PERF ORMED BY: [facility] [address] [place] [address] PATHOLOGIST TUBER MACHINE OPERATOR HELPER ERICK ACEVEDO M.D. Performed By: #### A DDONUAPLUS ####[address] [address] [place] pH (U) 5.0 [pH] Normal 5.0-9.0 [facility] Comment on above: Order Comment: Name Collection Type:: Clean-Voided Midstream Performed By: #### A DDONUAPLUS ####[address] [address] [place] Protein,Urine Negative Normal Negative [facility] Comment on above: Order Comment: Name Collection Type:: Clean-Voided Midstream Performed By: #### A DDONUAPLUS ####[address] [address] [facility] RBC LM.HPF (Urine sed) [#/Area] 0 /[HPF] Normal 0-4 [facility] Comment on above: Order Comment: Name Collection Type:: Clean-Voided Midstream Performed By: #### A DDONUAPLUS ####[address] Specificy [place],Urine 1.029 Normal 1.001-1.030 [facility] Comment on above: Order Comment: Name Collection Type:: Clean-Voided Midstream Performed By: #### A DDONUAPLUS ####[address] Squamous Epithelial Cell,Urine None Seen Normal 0-2 [facility] Comment on above: Order Comment: Name Collection Type:: Clean-Voided Midstream Performed By: #### A DDONUAPLUS ####[address] Urobilinogen,Urine Normal Normal Normal [facility] Comment on above: Order Comment: Name Collection Type:: Clean-Voided Midstream Performed By: #### A DDONUAPLUS ####[address] WBC LM.HPF (Urine sed) [#/Area] 0 /[HPF] Normal 0-4 [facility] Comment on above: Order Comment: Name Collection Type:: Clean-Voided Midstream Performed By: #### A DDONUAPLUS ####[address] Yeast,Urine 2+ Critically abnormal None Seen [facility] Comment on above: Order Comment: Name Collection Type:: Clean-Voided Midstream Result Comment: PERF ORMED BY: [facility] [address] [place] [address] PATHOLOGIST TUBER MACHINE OPERATOR HELPER ERICK ACEVEDO M.D. Performed By: #### A DDONUAPLUS ####[address] Hepatic Panelon 10-01-2022 Albumin [Mass/Vol] 4.7 g/dL Normal 3.5-5.7 [facility] Comment on above: Performed By: #### C BC, HEPATIC, BMP, LIPASE #### [facility] [address] Albumin/Globulin [Mass ratio] 1.3 {ratio} Normal [facility] Comment on above: Performed By: #### C BC, HEPATIC, BMP, LIPASE #### [facility] [address] ALP [Catalytic activity/Vol] 101 U/L Normal 34-104 [facility] Comment on above: Performed By: #### C BC, HEPATIC, BMP, LIPASE #### [facility] [address] ALT [Catalytic activity/Vol] 31 U/L Normal 7-52 [facility] Comment on above: Performed By: #### C BC, HEPATIC, BMP, LIPASE #### [facility] [address] [place] [address] AST [Catalytic activity/Vol] 23 U/L Normal 13-39 [facility] Comment on above: Performed By: #### C BC, HEPATIC, BMP, LIPASE #### [address] Bilirubin [Mass/Vol] 0.4 mg/dL Normal 0.3-1.0 [facility] Comment on above: Performed By: #### C BC, HEPATIC, BMP, LIPASE #### [facility] [address] Bilirubin,Indirect 0.3 mg/dL Normal [facility] Comment on above: Performed By: #### C BC, HEPATIC, BMP, LIPASE #### [facility] [address] Bilirubin.indirect [Mass/Vol] 0.10 mg/dL Normal 0.03-0.18 [facility] Comment on above: Performed By: #### C BC, HEPATIC, BMP, LIPASE #### [facility] [address] Globulin (S) [Mass/Vol] 3.6 g/dL Normal [facility] Comment on above: Performed By: #### C BC, HEPATIC, BMP, LIPASE #### [facility] [address] [place] [id number] [facility] Protein [Mass/Vol] 8.3 g/dL Normal 6.4-8.9 [facility] Comment on above: Performed By: #### C BC, HEPATIC, BMP, LIPASE #### [facility] [address] Lipaseon 10-01-2022 Lipase [Catalytic activity/Vol] 22.0 U/L Normal 11.0-82.0 [facility] Comment on above: Result Comment: PERF ORMED BY: [place] [address] PATHOLOGIST TUBER MACHINE OPERATOR HELPER ERICK ACEVEDO M.D. Performed By: #### C BC, HEPATIC, BMP, LIPASE #### [facility] [address] Coding Summaryon 09-24-2022 Coding Summary HTMLBase 64 HleqndfoYVx8vEy+PGhl YWQ+YO0RSADeU08pbZIf vQ3tW2DXHSkIBnswQPMM VDkZZtGbrxZhAQ9peXIg ZXJu IC8+IA0hXAAvFuacbTJk z9H2vWR6N49sha6uCCqn dXP5RLLdUuEpgravx1xx hNk5XBcpXsviIxNf REHhqW09IRA0oR38Sr55 hGZlaCCwv2iueHy5OjPo RJOfGYO0dTxzSEfky8Sr YVUbG64bpODdt2O5 IGNvbGxhcHNlOyBlbXB0 qC2gTHlsbbepv1nfckdt Rbi3iq26aUZii6T6pNX9 Q0TndsB2THIsxLXw YexapQETpW4xvzctk9ti jeqsDlZqMMVsPGk8XLx0 NHQflEtkJgZzGE32OTB6 OEUtgbEgZ0WyEUVm iGvgNvD9m3D4Fo0FD7RO EsbeY5EMIHQSORxglPH+ MQ66hl01U7EsVqovIyd0 DCIdQBF2sER8vY9l JVLvWIzqk1Q5mKR7U1In dmDurq6lv6isLTUdUJgp H98fgFLwo3L7CLGbjOG5 LYBuaAzoRdUckB04 Oyc+QQPzgJpgc7LhSgai s4rur5ycwAn7ZfonPYNo ycZpcVbqJOS7j8AtBp8w HNVgvSG0aJZ2pL1g DzGqKjF5KCqoQ290WiIz bSXfMfsiC44mN9AikNP+ OKRiAar9ZFLucVbgYZ4n P8DgOFUglnbfiOPz vTthPE7cEKPjrkgdLAQk oE5mKIUvL1w8YeCeQtC9 JChxR2EaNGJzfmmxKj48 eA9pDrVjYpM2KMon J9YnswX3XOZgvISkAQkd THE8G35cs3B9GOBdQOHi FQQ9dEO9vQ1nbElroyru bGVmdDsgdmVydGlj QLblWSbpN873GIAiyVxc PkNvZGluZyBEYXRlOiAg MDcvMTQvMjAyMzwvdGQ+ RNNhZPX1vCfsZQGt rSAzINodJv0xdKfhlPhx IW9uVGQdmuyfZKGahL4r CXXqiVKitDnhHW3pCIHb pwzew671LiQvMTV6 LYEuwTXzQ2GaiZ4oIhSw SLBhNTMlB8HdtWIsGGig K114JGeiDbH2EVUwceLa T8PcGLPgyAahVrZ4 s0N3Vz3Ze7TbwunqQ9Zf lIBzCoPsKhxsTSb2S0Ut PjwvdHI+JJ29TEXkHP71 ZIw7XXT6oAtqSUzp JYBsC3WeoV3lIwAjXQOa ZGRkOyc+PHRhYmxlIHdp ZHRoPScxMDAlJyBzdHls ZX3nIh5dEPPrXKOw kWtrnVDiEnGtx7fvVZQo LUcmMF5myLrcO6XjjVX2 LQJhg7o1Vg75Y56gY6Ws dXA+CZEkgJG9vHN6 gR5hFgOdQjZ0UFckL468 NbFagAAdKokop1pwo1qi uAb5SsT3KLIpocMacQez YZY7f0VxZg06W47z IHdpZHRoPSIxNSUiIHZh zPolyr4ioN3tRe1+PGNv gKY4yGT5uU3kTuKeOtT6 IUedB454HxVrhYOg Fkhlo5wfs0jxyLv9YuAa FFJtyjAozRypQFV1n6Tc Tc27S8OuiFtvk7TxCle8 xc27mCEst9N4oBI8 P6PiLBFgycrrfHMdxQlh FM9mWAQxdpwfJXPnxO5q XWPaW2v3AcNuPiJ1DWna M3FlrpR6EJJihWJp AJCsaXHEcO9iajrkk1qz oqguVpPzEWZrPFz3FNk5 KYKahYljGfWtVIW0EgF9 XCO8bBDshT8hkKbq gbmxuE5kRvf+RMK8bULv rNLCCL9bQpqkjQI+PHRk TXV9tDvlDEiyPDCqvK7s CGMiN1y0YcQwAmO7 IAwtY8ZdrmQ8GSAvzHPz USCukCYFqZ5kwfykx4ve wvxdOnGzBTAeHRv2IYq4 LWFsaWduOiBsZWZ0 HgB5BEH1nLBotB8oqRhv wkgztJ9kVyt+QmlydGgg UQL1EBw7N4EcZen9KROv cYipYI1mrHUtYTtx If2ypIwufGsqPL9bCUYv xkihx709UwPie6wbMWKq vAOtRLeiFYQ0X99wg1S5 SOTgHRWdBLA1eKG5 tL9xzHehtrehvOXecNzw htUkzRnlOMseVCkyV126 TQWjyMmpUyLaXDc2C7Nq Wrc0ZYLycIrjIA4m aKUgFUzjRx5anYjuoJep LF4kEMBgajrfs856CiAp e8olEDKtiAEwAYtlEAK3 S36uq1O7FDQyKKOn UMP1pDH7bL4zdCxihoqv bGVmdDsgdmVydGljYWwt PRpsL213QKUciJiuSiWv aMd9Y6ZwRqy4CMTx cJexEB0vbMJtBUhtVf1t kLowgSvlPM6dAUKqyrhj m821PgZqo3xdJTJfuJOh JPisAWA4X86ji5F1 VPFpDXEySZT5hTF2uV5q bGlnbjogbGVmdDsgdmVy oUfrHIimJXjnI023HRJf cDsnPlBhdGllbnQg TVnyTPh0Q0IgGptpdGK+ BF95GPJzMY77nZAwgUIi c6hdeAx1RjWcRSJoGPW8 zOpsJKpfe4TmHUTp W08ymXYzz3E7XPSicApt hXNoOyZqfEY2gP4nROje srtbs1wkjerePpffc4rn dx79hI27W96pRPwp ZHRoPSIzMCUiIHZhbGln vm7aiL5wYd0+PGNvbCB3 iOM2cW0xKNMcYwP1RDpo C625VpKwiJSrWncl k6fep7cupYr2KmZ9PFYq zcXemGiiRIC5j0QdYp20 J98aRSsoNJZhTQNqQDPc XOZruErbka7yyQ3k Ii8+NFXyzZR4kRK0yW5i DsGeVfP1HDklJ640DnRf jTOnPxflX68wL4QbcOG+ YVJoXtp7PXOsyPzp BX0nwDXrZRrhUd1bSUR4 VjXpPfGnVHriX6XlTEOm lzrnrcljkGB0RNIsLWDh jT92Cq5juHflGXPn cEDIrJ0ftpyeb5yaxwts PcYrLSDtNUo9JSo2UBUi vZibGhQjNVE1AwH8SZQ2 oOQxsX2feNeejoqk uH0lJ7YiLWXvfdpsMy14 bP1fVuLvSpN5HFfmRno+ HBGVH9AURQRqSXaBVDJT NJ76YR78wCAbs0Z5 wXE2Q2DyPMAjyvcapooe gGX8BLPkYXDnrK55jQIx DRmvEf5sb3Y6g201NMJm PEFscD72Nk4omYnk AJEfiRHSpM9cbqusl0bf jjneBcQoCGAlFYo8IQo2 CAAwzZrqHtWeWCL4YpO6 MID3rIJtwB0jzQvr osviaL4nQdn+MTIvMjgv BXx7WmpqnSY+PHRkIHN0 mQikNNuuTOJohJ1mMTEt F8f9QjUwGfM1WBlf E8QiMOWlezsiSr49rD2u TyGdIfP1IUmxR9KdfjB0 IJBquVHwIVxjRAI5A03y d8Z6AOEhPSYfUMD7 eUF7uR6vlYzchwgecLPy dDsgdmVydGljYWwtYWxp Y730AYPbuLchRpMrZGxw SMXdTW04IF69kORs y3O6rBR2Z7XzDXWulbrx cqtayBA8FNOpLJEokW45 pLXsSJfqUc7ie6B5q965 LFIfZXIvwU28Bg3a nNmhOINykHBMeM9lwgsk f0ywcyfmPrDoBEWnKEm8 XYf0TDKxmAdfCrWyXHJ5 CeI0RNL5iOYtsE7y bUjezpwcwQ6xQzi+TUFM RTwvdGQ+VXPoFIB1fJxu HYwcQBCwfR7vMCBuU9f6 BpKqVzX7UJrtL0An SWIszytlNb89aH0jPnFe CkC4XNceV5SqtkN7HKYj fAMbZUyfIQW6G79jj9X8 QEYxTQPxMSS7yMR7 cR9nbSiqrrzgxTJsuBuh meEoxCpgEYhqQGlrW050 XWTskFdtUjVkPPPrIB1j eTwvdGQ+NM02tt34 U4RfOmapZra8JAIrCLM8 oUX4sG6nSIJgWFxso2X2 qFB0U9UsptLudm3zh6gn LUWbBNnzD77rdKPp f5E0LSTeiMG9INCvyJzb PfWogP22Upi+PGNvbGdy p0EbYuche0byn3zmwPx2 IjMwJSIgdmFsaWdu KVM1s2OjVt00D12kQIcs ZHRoPSIzMCUiIHZhbGln yf9gbH0wUk4+PGNvbCB3 fDS7bR8tMtDxOnI1 BKcdJ237BvQcbRPvIxgg n9cfz2msoIv7NuNmQFSv nqPwwYdaDOI5o6MxXo57 T5MmnWwcm5AuSwq3 zt10tSHit5G3dZD2Z2Ue TOWxoswbkQKpkVvwBN1a DHYsbpulXVFhdJ2mWNBd D0a1ZeHxXgF3MUjt C8WypiN3JWUpxWFuXDVi rAAIhF8ikydjz3vgltja ToIbDAXvGBz2OOs1NHSs cRplKpJiHYH7TcU2 EQJ4cLQtpT4dmLdwzqzl kW8hZjx+FLh8g4mgdVTs GD4uoKG9TT79QR97tZOd o4V4cJJ0Q2YqEKNi gjlcinakqHP7BTKoWXOy mI91Lp0txXltLx6iIHLl DTZ2AICkeQMxC1JubC0r TaYnSNPdKRLrO4Oz sYTeENmcJ976PWizRfJ3 ZCPgigJsG5McBSIqqSrw OlM8i2V8Xs4DRG25MJ01 ZY16mQPxm3Q0tUA4 U1GkSINfnmvsvjldtVC4 QGNrVWPcmV51Za1dvFgg Pg3tQLQlVFX0UPPcdZXm F7EhbH8vArNrPNQz PQMvL1OgkNLjWTblJ835 LElgIeG4NJWvvdWuI4Wp GBQahGcdJaI2x6T3Ne3T Hf53WP88AQ60cUYf u9G1oGB9O0YjNRTbuwvc kgddrBA9UKCuVLWezC65 Da4vkVelXi5uFRKjOSD2 BHVxzCHnV4MxaY0t RkYtAPNuKYIpG3VszBLi QQstM157XUmeYiK9QPRu sdDrY8JuTHJyoUboPlP5 n9K8Yw0YYOqijre7 C5XoQwgfeTQ+QP54NACw LB54uGVzvRUgp7iouIj1 XgJmWKFjUWU3oErrGKjj r5YpPCKxZ59vbVRs c2U (more content not included)... Normal [facility] ED Clinical Summaryon 2022 ED Clinical Summary [facility] - Emergency Department [address] [place] [address] [id number] ED Clinical Summary PERSON INFORMATION Name: JESSICA PITTMAN Age: 52 Years Sex: MALE : 1970 MRN: Acct#: Visit Reason: Abdominal pain; ABDOMINAL PAIN Arrival: 09/17/2022 12:55:44 Discharge: 09/17/2022 15:03:00 LOS: 000 02:08 Check In: 09/17/2022 12:55:44 Checkout:09/17/2022 15:03:00 Address: [address] [place] [address] PCP: Provider, None PROVIDER INFORMATION Provider Role Assigned Unassigned Madeleine Kapadia CNP ED PA 09/17/2022 13:04:18 Josep Mazariegos HYDROPONICS WORKER Nurse 09/17/2022 13:05:46 VITALS INFORMATION Vital Sign [...] iver verbalizes understanding of instructions given Comment: [facility] ED Note-Nursingon 09-17-2022 ED Note-Nursing arrived via private vehicle with c/o abd pain and intermitant nausea since lastnight lbm today. metformin for diabetes. vss. oriented to call light. [facility] ED Patient Summaryon 023 ED Patient Summary [facility] - Emergency Department [address] [place], [place] [id number] PATIENT DISCHARGE INSTRUCTIONS Patient Information Name: JESSICA PITTMAN Age: 52 Years Date of : 1970 Reason For Visit: Abdominal pain; ABDOMINAL PAIN Arrival Time: 09/17/2022 12:55:44 Primary Care Physician: Provider, None Attending Physician: Raphael Moreno MD Comment: Visit Diagnosis: Diagnoses This Visit Abdominal pain ([id number]) Abdominal pain (R10.9) The Pharmacy at [facility] is open Tuesday through Tuesday from [...] alcohol and/or drug addiction problems; contact the [facility] 04/10 Crisis Hotline -Text 6UWXQ to [phone]. If you received any narcotics, sedation, or [...] and treatment you received today in the [facility] Emergency Department were for an urgent problem and are not intended as complete care. It is important for you to follow up with a doctor, nurse practitioner, or physician?s food and beverage assistant for ongoing care. If your symptoms [...] so we can reach you if necessary. [facility] Emergency Department has provided you with a complete list of medications post discharge. Please inform your medical record specialist/provider of your visit and for further instruction on these medications. Any specific questions regarding your chronic medications and dosages should be discussed with your primary care physician(s) and/or pharmacist. New Medications [id number], [address] [facility] [place], [place] [id number], [phone] dicyclomine (dicyclomine 20 mg oral tablet) 1 [...] as fried or sweet foods. These include swiss fries, (more content not included)... Normal [facility] POCT Glucose Levelon 023 Glucose [Mass/Vol] 132 mg/dL High 74-118 [facility] Comment on above: Performed By: #### [id number] #### [facility] (DEFAULT) [address] [place] [address] XR Abdomen 2 Viewson 023 XR Abdomen [...] MD 09/17/22 2:06 pm Technologist: Efrem ASKEW [facility] XR foot RT min 3V*on 023 XR foot RT min 3V* [facility] [place] [address] [place] [address] XRay Report Signed Patient: Jessica Pittman MR#: [id number] 91 : 1970 Acct:[id number] Age/Sex: 52 / M ADM Date: 04/02/22 Loc: ER Room: Type: [facility] ER Attending Dr: Copies to: Jose [...] Nicole Jr., D.O.04/03/2022 10:53 AM Dictation Location: [place] [address] Transcribed By: [facility] 04/03/22 1053 Dictated By: Ra Nicole Jr, DO 04/03/22 1052 Signed By: 04/03/22 1053 [facility] Glucose Glucometer (BldC) [M ass/Vol]Ordered By: Miguel Ángel Portillo on 01-23-2022 Glucose [Mass/Vol] 150 mg/dL [facility] Comment on above: Random Glucose Refer ence Range is dependent on time and content of last meal. Glucose of more than 200 mg/dL in a nonstressed, ambulatory subject supports the diagnosis of Diabetes Mellitus. Glucose Poct Glucometerson 1 03-25-2021 Glucose [Mass/Vol] 150 mg/dL Normal [facility] Comment on above: Result Comment: [facility] Glucose Reference Range is dependent on time and content of last meal. Glucose of more than 200 mg/dL in a nonstressed, ambulatory subject supports the diagnosis of Diabetes Mellitus. PERFORMED BY: [facility] [address] [place] [address] PATHOLOGIST TUBER MACHINE OPERATOR HELPER ERICK ACEVEDO M.D. Performed By: #### G LULS #### Point of Care testing , Vital Signs Date Time Vital Sign Value Performing Clinician Rea morelos 01-06-2023 14:14-0400 Body height 195.58 cm [facility] Work Phone: [facility] 01-06-2023 14:14-0400 Body temperature 97.4 [degF] [facility] Work Phone: [facility] 01-06-2023 14:14-0400 Body weight 107.1 kg [facility] Work Phone: [facility] 01-06-2023 14:14-0400 Diastolic blood pressure 64 mm[Hg] [facility] Work Phone: [facility] 01-06-2023 14:14-0400 Heart rate 65 /min [facility] Work Phone: [facility] 01-06-2023 14:14-0400 Respiratory rate 14 /min [facility] Work Phone: [facility] 01-06-2023 14:14-0400 SaO2% (BldA) [Mass fraction] 100 % [facility] Work Phone: [facility] 01-06-2023 14:14-0400 Systolic blood pressure 132 mm[Hg] [facility] Work Phone: [facility] 11-26-2022 20:11-0400 Body height 195.58 cm [facility] Work Phone: [facility] 11-26-2022 20:11-0400 Body temperature 98.1 [degF] [facility] Work Phone: [facility] 11-26-2022 20:11-0400 Body weight 109.9 kg [facility] Work Phone: [facility] 11-26-2022 20:11-0400 Diastolic blood pressure 63 mm[Hg] [facility] Work Phone: [facility] 11-26-2022 20:11-0400 Heart rate 82 /min [facility] Work Phone: [facility] 11-26-2022 20:11-0400 Respiratory rate 18 /min [facility] Work Phone: [facility] 11-26-2022 20:11-0400 SaO2% (BldA) [Mass fraction] 100 % [facility] Work Phone: [facility] 11-26-2022 20:11-0400 Systolic blood pressure 117 mm[Hg] [facility] Work Phone: [facility] 09-22-2022 22:03-0400 Body height 195.58 cm [facility] Work Phone: [facility] 09-22-2022 22:03-0400 Body temperature 97.8 [degF] [facility] Work Phone: [facility] 09-22-2022 22:03-0400 Body weight 105.8 kg [facility] Work Phone: [facility] 09-22-2022 22:03-0400 Diastolic blood pressure 72 mm[Hg] [facility] Work Phone: [facility] 09-22-2022 22:03-0400 Heart rate 80 /min [facility] Work Phone: [facility] 09-22-2022 22:03-0400 Respiratory rate 18 /min [facility] Work Phone: [facility] 09-22-2022 22:03-0400 SaO2% (BldA) [Mass fraction] 100 % [facility] Work Phone: [facility] 09-22-2022 22:03-0400 Systolic blood pressure 133 mm[Hg] [facility] Work Phone: [facility] 04-13-2022 15:02-0500 Body height 195.58 cm [employer] Miguel Ángel Lindsey Work Phone: [facility] 04-13-2022 15:02-0500 Body temperature 98.2 [degF] [employer] Miguel Ángel Lindsey Work Phone: [facility] 04-13-2022 15:02-0500 Body weight 102.05 kg [employer] Miguel Ángel Lindsey Work Phone: [facility] 04-13-2022 15:02-0500 Diastolic blood pressure 70 mm[Hg] [employer] Miguel Ángel Lindsey Work Phone: [facility] 04-13-2022 15:02-0500 Heart rate 85 /min [employer] Miguel Ángel Lindsey Work Phone: [facility] 04-13-2022 15:02-0500 Respiratory rate 18 /min [employer] Miguel Ángel Lindsey Work Phone: [facility] 04-13-2022 15:02-0500 SaO2% (BldA) [Mass fraction] 100 % [employer] Miguel Ángel Lindsey Work Phone: [facility] 04-13-2022 15:02-0500 Systolic blood pressure 107 mm[Hg] [employer] Miguel Ángel Lindsey Work Phone: [facility] 04-03-2022 00:00-0500 Body height 195.58 cm [employer] Miguel Ángel Lindsey Work Phone: [facility] 04-03-2022 00:00-0500 Body temperature 97.6 [degF] [employer] Miguel Ángel Lindsey Work Phone: [facility] 04-03-2022 00:00-0500 Body weight 102.05 kg [employer] Miguel Ángel Lindsey Work Phone: [facility] 04-03-2022 00:00-0500 Diastolic blood pressure 78 mm[Hg] [employer] Miguel Ángel Lindsey Work Phone: [facility] 04-03-2022 00:00-0500 Heart rate 81 /min [employer] Miguel Ángel Lindsey Work Phone: [facility] 04-03-2022 00:00-0500 Respiratory rate 18 /min [employer] Miguel Ángel Lindsey Work Phone: [facility] 04-03-2022 00:00-0500 SaO2% (BldA) [Mass fraction] 99 % [employer] Miguel Ángel Lindsey Work Phone: [facility] 04-03-2022 00:00-0500 Systolic blood pressure 130 mm[Hg] [employer] Miguel Ángel Lindsey Work Phone: [facility] 01-23-2022 08:55-0500 Body temperature 97.9 [degF] [employer] Miguel Ángel Lindsey Work Phone: [facility] 01-23-2022 08:55-0500 Diastolic blood pressure 74 mm[Hg] [employer] Miguel Ángel Lindsey Work Phone: [facility] 01-23-2022 08:55-0500 Heart rate 77 /min [employer] Miguel Ángel Lindsey Work Phone: [facility] 01-23-2022 08:55-0500 Respiratory rate 18 /min [employer] Miguel Ángel Portillo Work Phone: [facility] 01-23-2022 08:55-0500 SaO2% (BldA) [Mass fraction] 100 % [employer] Miguel Ángel Portillo Work Phone: [facility] 01-23-2022 08:55-0500 Systolic blood pressure 118 mm[Hg] [employer] Miguel Ángel Portillo Work Phone: [facility] 01-23-2022 08:53-0500 Body height 195.58 cm [employer] Miguel Ángel Portillo Work Phone: [facility] 01-23-2022 08:53-0500 Body weight 104 kg [employer] Miguel Ángel Portillo Work Phone: [facility] Encounters Encounter Date Encounter Type Care Provider Facility Start: 01-06-2023 End: 01-06-2023 Emergency department patient visit Helena Bhatti Facility:[facility] Start: 01-06-2023 End: 01-06-2023 Emergency department patient visit [facility] Work Phone: [facility] Work Phone: Start: 11-26-2022 End: 11-27-2022 Emergency department patient visit [facility] Facility:[facility] Start: 11-26-2022 End: 11-26-2022 Emergency department patient visit [facility] Work Phone: [facility] Work Phone: Start: 10-06-2022 End: 10-06-2022 Emergency department patient visit Miguel Ángel Lindsey Facility:[facility] Start: 10-01-2022 End: 10-01-2022 Emergency department patient visit Jose Nixon Facility:[facility] Start: 09-22-2022 End: 09-23-2022 Emergency department patient visit [facility] Facility:[facility] Start: 09-22-2022 End: 09-22-2022 Emergency department patient visit [facility] Work Phone: [facility] Work Phone: Start: 09-17-2022 End: 09-17-2022 Emergency department patient visit None Provider Facility:[facility] Start: 04-13-2022 End: 04-13-2022 [facility] Start: 04-13-2022 End: 04-13-2022 Emergency department patient visit FRANCO Portillo Work Phone: [facility] Work Phone: Start: 04-03-2022 End: 04-03-2022 [facility] Start: 04-02-2022 End: 04-03-2022 Emergency department patient visit FRANCO Portillo Work Phone: [facility] Work Phone: Start: 01-23-2022 End: 01-23-2022 [facility] Start: 01-23-2022 End: 01-23-2022 Emergency department patient visit FRANCO Portillo Work Phone: [facility] Procedures Date Procedure Procedure Detail Performing Clinician Start: 04-03-2022 X-ray of right foot APR N Miguel Ángel Portillo Work Phone: Plan of Treatment Date Care Activity Detail Author Start: 01-06-2023 Plain chest X-ray XR chest 2V* [facility] Start: 01-06-2023 XR Chest 2 Views [facility] Start: 04-03-2022 X-ray of right foot XR foot RT min 3 V* [facility] Start: 04-03-2022 XR Foot - right GE 3 Views [facility] Patient Education [facility] Work Phone: Patient referral [facility] Work Phone: Payers Date Payer Category Payer Private Health Insurance [id number] 2022 Private Health Insurance [id number] 2022 Self-pay [id number] 1970 Unknown [id number] 18 Unknown Regular Auto/Liability [id number] Unknown Insurance No Card [id number] 31 Unknown [id number] [id number] 31 Unknown [id number] 2.16.840.1.348275.3.579.2.5 31 Unknown [id number] 2.16.840.1.457667.3.579.2.5 31 Unknown [id number] 2.16.840.1.147866.3.579.2.5 31 Unknown [id number] 2.16.840.1.519611.3.579.2.5 31 Unknown [id number] 2.16.840.1.322808.3.579.2.5 31 Unknown [id number] 2.16.840.1.250446.3.579.2.5 31 Social History Date Type Detail Facility Start: 01-23-2022 End: 01-06-2023 Tobacco smoking status NHIS Never smoked tobacco (finding) [facility] Start: 1970 Sex Assigned At Male F [facility] Clinical Note 09-17-2022 Note Date & Type [...] as fried or sweet foods. These include swiss fries, hamburgers, cookies, candies, and soda. ? Drink enough fluid to keep your urine pale yellow. General instructions ? Exercise regularly or as told by your health care provider. Try to do 150 minutes of moderate exercise each week. ? Use the bathroom when you have the urge to go. Do not hold it in. ? Take akyh-aed-itcybcr and prescription medicines only as told by [...] keep your urine pale yellow. ? Take gpne-vgg-qjhgmbb and prescription medicines only as told by your health care provider. This includes any fiber supplements. This information is not intended to replace advice given to you by your health care provider. Make sure you discuss any questions you have with your health care provider. Document Revised: 01/16/2020 Document Reviewed: 01/16/2020 [employer] Patient Education ? 2022 [employer] Abdominal Pain, Adult Pain in the [...] these instructions at home: Medicines ? Take isxc-rkd-jwltdie and prescription medicines only as told by [...] condition for any (more content not included)... [facility] Evaluation note Note Date & Type Note Facility Evaluation note No assessment information availa ble [facility] Work Phone: Hospital Discharge instructions Note Date & Type Note Facility Hospital Discharge instructions Additional Instructions Stop the gabapentin(Neurontin) if you feel the Lyrica prescribed today. You must follow-up with health department next week for further evaluation and treatment. [facility] Work Phone: Hospital Discharge instructions Note Date & Type Note Facility Hospital Discharge instructions Additional Instructions If your symptoms return/worsen or you develop any further concerns or symptoms please see your doctor or return to the emergency department immediately. [facility] Work Phone: Hospital Discharge instructions Note Date & Type Note Facility Hospital Discharge instructions Additional Instructions Rest as needed Increase oral fluids May take [id number] Mucinex or Coricidin for symptoms May do warm salt water gargles throat lozenges cough drops Follow-up with family doctor as needed Return to the ER for high fever difficulty breathing chest pain or any other concerns [facility] Work Phone: Chief Complaint and Reason [...] Ángel Portillo APRN Emergency Provider Active [facility] Active Team Status: Active Member Role Status Dates [facility] Provider Active Team Status: Inactive Member Role Status Dates [facility] Primary Care Provider Active Jose Nixon , Emergency Provider Active Team Status: Inactive Member Role Status Dates [facility] Provider Active Miguel Ángel Portillo APRN Emergency Provider Active Team Status: Inactive Member Role Status Dates [facility] Provider Active Preston Pike DO Emergency Provider Active Team Status: Inactive Member Role Status Dates [facility] Provider Active Ivan Aleman PA-C Emergency Provider Active Team Status: Inactive Member Role Status Dates [facility] Primary Care Provider Active Helena Bhatti , [employer]- Emergency Provider Active Goals (unrecognized section and [...] section and content) DATE CREATED AUTHOR 09/25/2022 [facility] DATE CREATED AUTHOR AUTHOR'S ORGANIZ ATION 01/19/2023 [facility] FOR RECORDS PERTAINING TO PATIENTS WHO [...] BE BASED ON THE PRIMARY CLINICAL RECORDS. [employer] provides no warranty or guarantee of the accuracy or completeness of information in this document.
== END 2023-04-25 15:39 | disposition home or self-care (01) ==
LOC: WC 15:38
PROVIDERS: Visit Provider Physician Assistant
DX: M79.671 Pain in right foot (principal); E11.21 Type 2 diabetes mellitus with diabetic nephropathy; E11.65 Type 2 diabetes mellitus with hyperglycemia
CPT/HCPCS: G0463

== ENCOUNTER 2024-07-19 14:57 | Outpatient (OUT) | payer OTHER, SELFPAY ==
--- NOTE | 2024-07-19 16:52 | PM.WCHP ---
Wound Care H&P: HPI History of Present Illness Narrative: The patient is a pleasant 54-year-old gentleman with history of type 2 diabetes and neuropathy who presents for routine nail care. He has no complaints in regards to his feet at this time. [facility] Medical History (Updated 07/19/24 @ 17:28 by JULIA Mcmanus) Gastroenteritis ?K52.9 - Noninfective gastroenteritis and colitis, unspecified (ICD-10) Hyperlipidemia ?E78.5 - Hyperlipidemia, unspecified (ICD-10) Diabetes ?E11.9 - Type 2 diabetes mellitus without complications (ICD-10) Diabetic acidosis, type II ?E11.10 - Type 2 diabetes mellitus with ketoacidosis without coma (ICD-10) Family History (Updated 02/24/23 @ 05:16 by Donna Vick) Brother Family history of diabetes mellitus Aunt Family history of diabetes mellitus Social History (Updated 02/24/23 @ 05:18 by Donna Vick) Within the past year, how often did you have a drink containing alcohol: never Within the past year, how often did you have six or more drinks on one occasion: never Score interpretation: A score less than 4 is consistent with normal alcohol consumption. 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 Known occupational exposures/hazards: No Highest level of school completed/degree received: high school graduate Are you now , , , , never or living with a partner: living with partner In a typical week, how many times do you talk on the telephone with family, friends, or neighbors: 3 or more times per week How often do you get together with friends or relatives: 3 or more times per week How often do you attend lutheran or episcopalian services: never Do you belong to any clubs or organizations such as lutheran groups unions, fraternal or athletic groups, or school groups: no Total score: 2 Score interpretation: A score of greater than or equal to 2 indicates the lowest level of social isolation. Little interest or pleasure in doing things: not at all Feeling down, depressed, or hopeless: not at all Feel stressed/tense/nervous/anxious/difficulty sleeping: not at all Due to disability, difficulty making decisions: No Do you think of yourself as: straight/heterosexual Gender Identity: male Meds Home Medications and Allergies Home Medications ?Medication ?Instructions ?Recorded ?Confirmed ?Type metformin 1,000 mg tablet 1,000 mg PO BID 02/24/23 02/24/23 History amoxicillin 875 mg-potassium 1 tab PO BID #14 tabs 04/21/23 Rx clavulanate 125 mg tablet nabumetone 750 mg tablet 750 mg PO BID PRN pain #14 tabs 04/21/23 Rx sulfamethoxazole 800 1 tab PO BID 7 days #14 tabs 04/21/23 Rx mg-trimethoprim 160 mg tablet (Bactrim DS) Allergies Allergy/AdvReac Type Severity Reaction Status Date / Time No Known Drug Allergies Allergy Verified 04/21/23 07:06 Exam Narrative: Exam Narrative: Derm: No ulcerative or preulcerative lesions are noted. The skin is diffusely dry with pigmentary changes and hemosiderin staining on the lower legs. Vascular: DP and PT pulses are 2/4 bilaterally. Capillary refills less than 3 seconds. Toes are appropriately warm to the touch. No edema. Digital hair is absent bilaterally. Neuro: Protective sensation was tested with the monofilament on each foot. He was able to detect 1/5 areas tested on each foot. Vibratory sensation is present but decreased bilaterally. Achilles deep tendon reflexes are absent bilaterally. MSK: No gross deformity, no pain on palpation Assessment and Plan Assessment and Plan (1) Tinea unguium: (2) Diminished pulses in lower extremity: (3) Type 2 diabetes mellitus with diabetic neuropathy, unspecified: Plan The patient is a pleasant 54-year-old gentleman with history of type 2 diabetes and neuropathy who presents for routine nail care. Follow-up in 3 months. Acute Procedures Podiatry Nail Debridement Class B Findings Advanced trophic changes as evidenced by any three of the following: decreased hair growth, nail changes (thickening), pigmentary changes (discoloring) and skin texture (thin or shiny) Absent dorsalis pedis pulse: left Class C Findings Claudication: No Temperature changes: No Edema: No Nail debridement paresthesia (abnormal spontaneous sensations in the feet): No Burning: No Qualifies If: Qualifiers If:: A patient qualifies for nail debridement if they have: 1 class A finding (Q7) 2 class B findings (Q8) OR 1 class B & 2 class C findings in addition to a primary condition (Q9) Nail Procedure Nail Procedure Time out: Yes Nail procedure: other (Toenail debridement 1 through 10) Number of affected nails: 10 Location (toes): left and right Procedure successful: Yes Patient tolerated procedure: well and no complications Additional comments: Toenails 1 through 10 were sharply debrided without incident into the patient's satisfaction
== END 2024-07-19 14:58 | disposition home or self-care (01) ==
LOC: WC 14:57
PROVIDERS: Visit Provider Physician Assistant
DX: B35.1 Tinea unguium (principal); R09.89 Other specified symptoms and signs involving the circulatory and respiratory systems; E11.40 Type 2 diabetes mellitus with diabetic neuropathy, unspecified
CPT/HCPCS: 11721